=== PATIENT | male | born 1945 | race Caucasian/White ===

== ENCOUNTER 2018-08-07 16:06 | Emergency (ER) | payer OTHER ==
[2018-08-07] MEDS ORDERED: SODIUM CHLORIDE 1,000 ML IV SCH (16:15)
[2018-08-07 16:29] VITALS: BMI 24.8
--- NOTE | 2018-08-07 16:35 | PDOC ---
Attending Attestation - HPI HPI: 08/07/18 18:03 The patient is a 72 year old male, with a significant past medical history of asthma, hypertension, carotid stents and pacemaker placement, who presents to the emergency department via EMS for evaluation. The patients , who is at the bedside, reports that she left for work at approximately 7:45 AM and notes that the patient was well and at his baseline. She returned home from work at approximately 15:30 PM, heard the television on and found the patient sitting in a chair, unable to respond to her. She initiated 911 and the patient was brought to the emergency department for evaluation. Code reyes was initiated upon presentation to the emergency department. - Physicial Exam PE: 08/07/18 17:27 GENERAL: The patient is arousable. HEAD: Normal with no signs of trauma. EYES: PERRLA, EOMI, sclera anicteric, conjunctiva clear. ENT: Ears normal, nares patent, oropharynx clear without exudates. Moist mucous membranes. NECK: Normal range of motion, supple without lymphadenopathy, JVD, or masses. LUNGS: Breath sounds equal, clear to auscultation bilaterally. No wheezes, no crackles. HEART: Regular rate and rhythm, normal S1 and S2 without murmur, rub or gallop. ABDOMEN: Soft, nontender, normoactive bowel sounds. No guarding, no rebound. No masses palpable. EXTREMITIES: No edema. No clubbing or cyanosis. No erythema or tenderness. NEUROLOGICAL: See NIHSS for complete examination. Forced eye deviation to the left. No movement of the right upper or lower extremity. Sensation intact of the right upper extremity. Normal strength of the left upper and lower extremity. MUSCULOSKELETAL: Back nontender to palpation. No CVA tenderness. SKIN: Warm, dry, normal turgor, no rashes or lesions noted. Documentation prepared by Mary Corley, acting as medical/surgery registered nurse for Jocelyne Cedeno MD. <Mary Moss - Last Filed: 08/07/18 18:03> - Resident Resident Name: Angel Ferguson - ED Attending Attestation I have performed the following: I have examined & evaluated the patient, The case was reviewed & discussed with the resident, I agree w/resident's findings & plan, Exceptions are as noted - Critical Care Time Total Critical Care Time: 90 Critical Care Statement: The care of this patient involved high complexity decision making to prevent further life threatening deterioration of the patient 's condition and/or to evaluate & treat vital organ system(s) failure or risk of failure. - Medical Decision Making 08/07/18 16:45 EKG -Paced at 79 bpm 08/07/18 17:17 Laboratory Tests 08/07/18 08/07/18 08/07/18 16:30 16:30 16:30 WBC 9.0 Hgb 15.9 Hct 46.0 Plt Count 155 INR 1.03 BUN 18 Creatinine 0.9 Creatine Kinase [address] - no hemorrhage seen CTA - ICA Thrombus [facility] contacted Will transfer LIZA <Jocelyne Cedeno - Last Filed: 08/08/18 11:50> *DC/Admit/Observation/Transfer <Mary Moss - Last Filed: 08/07/18 18:03> <Jocelyne Cedeno - Last Filed: 08/08/18 11:50> Diagnosis at time of Disposition: Cerebrovascular accident (CVA) Qualifiers: CVA mechanism: occlusion Precerebral and cerebral artery: carotid artery Laterality of affected vessel: left Qualified Code(s): I63.232 - Cerebral infarction due to unspecified occlusion or stenosis of left carotid arteries - Discharge Dispostion Disposition: TRANSFER ACUTE CARE/OTHER HOSP Condition at time of disposition: Critical - Referrals Referrals: Zeyad Rios MD [Primary Care Provider] - - Patient Instructions - Post Discharge Activity NIH Stroke Scale - Last Known Well Date/Time & Onset Date Last Known Well: 08/07/18 Time Last Known Well: 07:35 - Initial Evaluation Level of consciousness: Not alert, but arousable with minimal stimulation Ask patient the month and their age: Both incorrect Ask patient to open & close eyes; make fist and let go: Both incorrect Best gaze (horizontal eye movement): Forced deviation Visual field testing: Partial hemianopia Facial paresis (Show teeth/raise eyebrows/close eyes tight): Minor paralysis ( flattened nasolabial fold, asymmetry on smiling) Motor Function: Left Arm: Normal Motor Function: Right Arm: No movement Motor Function: Left Leg: Normal (extends leg 30 degrees for 5 seconds without drift) Motor Function: Right Leg: No movement Limb Ataxia: Present in two limbs Sensory(Use pinprick test arms,legs,trunk,face/side to side): Severe to total sensory loss Best language (Describe picture, name items, read sentences): Severe aphasia Dysarthria (read several words): Near unintelligible or unable to speak Extinction and Inattention: Profound erica-inattention or extinction to more than one modality - Total Score NIH Stroke Scale Score: 27 <Jocelyne Cedeno - Last Filed: 08/08/18 11:50> tPA Exclusion checklist 3-4.5h - Time Elapsed Date last known well: 08/07/18 Time last known well: 07:35 Elaspsed time: 1 Day(s) and 4 Hour(s) and 14 Minutes - Thrombolytic Therapy Candidate Is patient eligible for thrombolytic therapy: No - Exclusion Criteria 3-4.5 hr SBP greater than 185 or DBP greater than 110mmHg despite tx: No Recent IC/spinal surgery,head trauma or stroke<3mos.: No Hx IC hemorrhage, IC neoplasm, AV malformation or aneurysm: No Active internal bleeding: No Blding diathesis(low plt ct, inc PTT,INR>1.7 or use of NOAC): No Symptoms suggest subarachnoid hemorrhage: No CT demonstrates multilobar infarct(>1/3 cerebral hemiphere): No Arterial puncture at noncompressible site in previous 7 days: No Blood glucose concentration less than 50mg/dL (2.7mmol/L): No - Relative Exclusion Criteria 3-4.5 hr Life expectancy <1 yr or severe co-morbid illness: No : No Patient/family refused: No Stroke severity too mild: No Recent acute NJ (w/in previous 3 months): No Seizure at onset with postictal residual neuro impairments: No Major surgery or serious trauma w/in previous 14 days: No Recent GI or hemorrhage (w/in previous 21 days): No - Add'l Relative Exclusion 3-4.5 hr Age > 80: No Hx of both diabetes AND prior ischemic stroke: No Taking an oral anticoagulant regardless of INR: No NIHSS >25: Yes - Ineligibility reason(s) Reasons No tPA given: Outside of window - delayed arrival <Jocelyne Cedeno - Last Filed: 08/08/18 11:50>
[2018-08-07 16:43] LABS: BASO % 0.8 % (0-2.0); HEMOGLOBIN 15.9 GM/dL (11.7-16.9); LYMPH % 22.5 % (8-40); MCH 31.7 pg (25.7-33.7); MCHC 34.5 g/dl (32.0-35.9); MEAN PLT VOLUME 11.7 fl (7.5-11.1); MONO % 8.1 % (3.8-10.2); NEUT % 67.6 % (42.8-82.8); PLATELET COUNT 155 K/MM3 (134-434); RDW 14.3 % (11.9-15.9)
[2018-08-07 16:55] LABS: INR 1.03 (0.83-1.09); PROTHROMBIN TIME (PATIENT) 12.2 SEC (9.7-13.0)
[2018-08-07 17:14] LABS: ALBUMIN 3.7 g/dl (3.4-5.0); ALK PHOS 84 U/L (45-117); ANION GAP 8 MMOL/L (8-16); BILIRUBIN,TOTAL 0.7 mg/dL (0.2-1); BLOOD UREA NITROGEN 18 mg/dL (7-18); CALCIUM 8.6 mg/dL (8.5-10.1); CHLORIDE 105 mmol/L (98-107); CHOLESTEROL 257 mg/dL (50-200); CO2 23 mmol/L (21-32); CREATININE 0.9 mg/dL (0.55-1.3); GLUCOSE,RANDOM 115 mg/dL (74-106); HDL CHOLESTEROL 57 mg/dL (40-60); POTASSIUM 3.7 mmol/L (3.5-5.1); SGOT/AST 19 U/L (15-37); SGPT/ALT 20 U/L (13-61); SODIUM 137 mmol/L (136-145); TOT PROT 6.8 g/dl (6.4-8.2); TRIGLYCERIDES 164 mg/dL (0-150)
--- NOTE | 2018-08-07 17:33 | PDOC ---
History of Present Illness - General Chief Complaint: CVA/TIA Stated Complaint: POSSIBLE STROKE Time Seen by Provider: 08/07/18 16:26 History Source: EMS, Family Exam Limitations: No Limitations - History of Present Illness Initial Comments: 08/07/18 17:34 Patient is a 72M with extensive medical history, including pacemaker placement, carotid stents, HTN who was found down today. Last known well was 7:45am when the left the house. On my initial evaluation, the patient was protecting his airway but was unable to provide any history. Fingerstick was normal. A left eye deviation was noted with right sided erica-neglect and hemiparesis. Code young was activated. Past History - Past Medical History Allergies/Adverse Reactions: Allergies Allergy/AdvReac Type Severity Reaction Status Date / Time Penicillins Allergy Verified 08/07/18 16:26 Home Medications: Ambulatory Orders Clonazepam 0.5 mg PO DAILY PRN 08/07/18 Lisinopril 20 mg PO DAILY 08/07/18 Metoprolol Succinate 25 mg PO BID 08/07/18 Olanzapine 15 mg PO HS 08/07/18 Asthma: Yes Cardiac Disorders: Yes COPD: No - Surgical History Cardiac Surgery: Yes (pacemaker, stents) - Suicide/Smoking/Psychosocial Hx Smoking History: Unknown if ever smoked Review of Systems - Review of Systems Able to Perform ROS?: No (Unable to do 2/2 patient ) *Physical Exam - Vital Signs Last Vital Signs Temp Pulse Resp BP Pulse Ox 70 18 160/98 96 08/07/18 17:07 08/07/18 17:07 08/07/18 17:07 08/07/18 16:26 - Physical Exam Comments: 08/07/18 17:52 GENERAL: Awake, alert, non-verbal, non-responsive HEAD: No signs of trauma, normocephalic, atraumatic EYES: Left eye deviation ENT: Auricles normal inspection, hearing grossly normal, nares patent, oropharynx clear without exudates. Moist mucosa NECK: Normal ROM, supple, no lymphadenopathy, JVD, or masses LUNGS: No distress, speaks full sentences, clear to auscultation bilaterally HEART: Regular rate and rhythm, normal S1 and S2, no murmurs, rubs or gallops, peripheral pulses normal and equal bilaterally. ABDOMEN: Soft, nontender, normoactive bowel sounds. No guarding, no rebound. No masses EXTREMITIES: Normal inspection, Normal range of motion, no edema. No clubbing or cyanosis. NEUROLOGICAL: Left sided facial droop, aphasic, R sided hemiparesis and neglect SKIN: Warm, Dry, normal turgor, no rashes or lesions noted. NIH Stroke Scale - Last Known Well Date/Time & Onset Date Last Known Well: 08/07/18 Time Last Known Well: 07:45 - Initial Evaluation Level of consciousness: Alert Ask patient the month and their age: Both incorrect Ask patient to open & close eyes; make fist and let go: Both incorrect Best gaze (horizontal eye movement): Forced deviation Visual field testing: Complete hemianopia Facial paresis (Show teeth/raise eyebrows/close eyes tight): Partial paralysis ( total or near paralysis of lower face) Motor Function: Left Arm: Drift Motor Function: Right Arm: No movement Motor Function: Left Leg: Drift Motor Function: Right Leg: No movement Limb Ataxia: Present in two limbs Sensory(Use pinprick test arms,legs,trunk,face/side to side): Severe to total sensory loss Best language (Describe picture, name items, read sentences): Mute Dysarthria (read several words): Near unintelligible or unable to speak Extinction and Inattention: Profound erica-inattention or extinction to more than one modality - Total Score NIH Stroke Scale Score: 31 Moderate Sedation - Procedure Monitoring Vital Signs: Procedure Monitoring Vital Signs Temperature Pulse Rate 70 08/07/18 17:07 Respiratory Rate 18 08/07/18 17:07 Blood Pressure 160/98 08/07/18 17:07 O2 Sat by Pulse Oximetry (%) 96 08/07/18 16:26 Critical Care Time/[facility] Note - Medical Decision Making Note: 08/07/18 18:03 Patient is 72M here today with likely acute stroke. Last known well 7:45 am as left the home. Patient has signs of massive L sided MCA stroke. Fingerstick normal as per EMS. Code young activated. Head CT shows no acute bleed. Labs drawn, patient sent for CTA without waiting for Cr due to high clinical suspicion. EKG shows atrial sensed paced rhythm with rate of 79. Sgarbossa negative. Left axis. LBB pattern. CBC, CMP unremarkable. CTA positive for L internal carotid occlusion. [facility] neuro contacted for transfer. Accepted by Dr Latoya for possible thrombectomy. Patient's airway stable for transport. Code Red transfer via [facility]. Signout also completed to [facility] attending physician. *DC/Admit/Observation/Transfer Diagnosis at time of Disposition: Cerebrovascular accident (CVA) - Discharge Dispostion Disposition: TRANSFER ACUTE CARE/OTHER HOSP Condition at time of disposition: Critical - Referrals Referrals: Zeyad Rios MD [Primary Care Provider] - - Patient Instructions - Post Discharge Activity - Transfer to Acute Care Facility Receiving Facility: [facility] Accepting Physician:: Latoya
[2018-08-07 18:12] VITALS: BP 148/99; PULSE 77
--- NOTE | 2018-08-08 11:27 | EKG ---
Test Reason : Blood Pressure : / mmHG Vent. Rate : 079 BPM Atrial Rate : 079 BPM P-R Int : 188 ms QRS Dur : 164 ms QT Int : 486 ms P-R-T Axes : 055 -67 090 degrees QTc Int : 557 ms Atrial-sensed ventricular-paced rhythm ABNORMAL ECG NO PREVIOUS ECGS AVAILABLE Confirmed by EDWIN GOMEZ, SANJIV ([id number]) on 08/08/2018 11:26:47 AM Referred By: Confirmed By:SANJIV PINEDA MD
== END 2018-08-07 18:12 | disposition short-term general hospital (02) ==
LOC: JER 16:06
DX: I63.232 Cerebral infarction due to unspecified occlusion or stenosis of left carotid arteries (principal); I25.10 Atherosclerotic heart disease of native coronary artery without angina pectoris; I10 Essential (primary) hypertension; Z95.5 Presence of coronary angioplasty implant and graft; Z95.0 Presence of cardiac pacemaker; J45.909 Unspecified asthma, uncomplicated; Z95.828 Presence of other vascular implants and grafts
CPT/HCPCS: 36415; 70450-TC; 70496-TC; 71045-TC-FY; 80053; 82465; 82550; 82553; 83718; 83721; 84478; 84484; 85025; 85610; 86850; 86900; 86901; 93005; 93010; 99285-25

== ENCOUNTER 2020-05-02 03:46 | Inpatient (IN) | payer OTHER ==
[2020-05-02] MEDS ORDERED: methylPREDNISolone NA SUCC 125 MG/2 ML VIAL ONE ×2 (03:51→04:43)
[2020-05-02] MEDS ORDERED: MAGNESIUM SULFATE IN WATER 2 GM/50 ML IVPB IVPB ONE (03:51)
[2020-05-02] MEDS ORDERED: methylPREDNISolone NA SUCC 125 MG/2 ML VIAL IVPB ONE ×2 (03:53→04:14)
[2020-05-02] MEDS ORDERED: MAGNESIUM SULF 50% (8.12 MEQ/2 ML-1 GM VIAL) IVPB ONE (03:53)
[2020-05-02] MEDS ORDERED: AZITHROMYCIN 250 MG TABLET PO ONE (04:07)
[2020-05-02] MEDS ORDERED: CEFTRIAXONE 1,000 MG in DEXTROSE 5%-WATER - 50 ML IVPB ONE (04:07)
[2020-05-02] MEDS ORDERED: cefTRIAXone SODIUM 1 GM VIAL ONE (04:13)
[2020-05-02] MEDS ORDERED: DEXAMETHASONE SOD PHOSPHATE 10 MG/1 ML VIAL IVPUSH ONE (04:13)
[2020-05-02] MEDS ORDERED: CEFTRIAXONE 1 GM/50 ML BAG ONE (04:14)
[2020-05-02 04:18] VITALS: BMI 32.3
[2020-05-02 04:19] LABS: ARTERIAL BLD GAS O2 SATURATION 97.2 mmHg (95-98); ARTERIAL BLOOD GAS BASE EXCESS -8.1 mmol/L (-2-2); ARTERIAL BLOOD GAS PO2 109.6 mmHg (80-100); ARTERIAL BLOOD GAS pH 7.236 (7.350-7.450)
[2020-05-02 04:27] LABS: VENT RATE N
[2020-05-02 04:30] LABS: BASO % 0.1 % (0-2.0); EOS % 0.1 % (0-4.5); HEMATOCRIT 46.1 % (35.4-49); HEMOGLOBIN 15.2 GM/dL (11.7-16.9); LYMPH % 5.5 % (8-40); MCH 31.6 pg (25.7-33.7); MCHC 33.1 g/dl (32.0-35.9); MEAN CELL VOLUME 95.5 fl (80-96); MEAN PLT VOLUME 12.4 fl (7.5-11.1); MONO % 7.2 % (3.8-10.2); NEUT % 87.1 % (42.8-82.8); RBC 4.82 M/mm3 (4.00-5.60); RDW 13.9 % (11.9-15.9)
[2020-05-02] MEDS ORDERED: AZITHROMYCIN IVPB 500 MG in DEXTROSE 5%-WATER - 250 ML IVPB ONE (04:31)
--- NOTE | 2020-05-02 04:39 | PDOC ---
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 s/p CVA per family in ED, has been coughing with mucus last few days no fever or sick contacts covid-19 negative last week today patient sleeping in bed, had acute onset SOB with vomiting and diarrhea appeared blue in the fingers and pale EMS called per EMS, satting 70% on RA with wheezing up to 93% on NRB given Duonebs in ED satting 97% on NRB patient unable to give more PMH due to clinical condition allergy to PCN is "black eyes" Past History - Medical History Allergies/Adverse Reactions: Allergies Allergy/AdvReac Type Severity Reaction Status Date / Time Penicillins Allergy Verified 08/07/18 16:26 Home Medications: Ambulatory Orders Lisinopril 15 mg PO DAILY 08/07/18 Metoprolol Succinate 25 mg PO DAILY 08/07/18 Olanzapine 5 mg PO HS 08/07/18 Aspirin [ASA -] 81 mg PO DAILY 05/02/20 Atorvastatin Ca [Lipitor] 80 mg PO HS 05/02/20 Tamsulosin HCl 0.4 mg PO HS 05/02/20 Asthma: Yes Cardiac Disorders: Yes COPD: No - Surgical History Cardiac Surgery: Yes (pacemaker, stents) - Psycho-Social/Smoking History Smoking History: Unknown if ever smoked Review of Systems - Review of Systems Able to Perform ROS?: No (SOB/aphasia) *Physical Exam - Vital Signs Last Vital Signs Temp Pulse Resp BP Pulse Ox 98 F 85 33 H 111/71 96 05/02/20 04:09 05/02/20 04:09 05/02/20 04:09 05/02/20 04:09 05/02/20 04:09 - Physical Exam General Appearance: Yes: Nourished, Appropriately Dressed, Mild Distress HEENT: positive: EOMI, SHAMAR, Normal Voice, Symmetrical, Pharynx Normal, Hearing Grossly Normal. negative: Scleral Icterus (R), Scleral Icterus (L), Pharyngeal Erythema, Tonsillar Exudate Neck: positive: Normal Thyroid. negative: Tender, Rigid, Lymphadenopathy (R), Lymphadenopathy (L), Tender lateral, Tender midline Respiratory/Chest: positive: Labored Respiration, Rapid RR, Crackles (bases R>L). negative: Chest Tender, Lungs Clear, Normal Breath Sounds, Respiratory Distress, Accessory Muscle Use, Decreased Breath Sounds, Rales, Rhonchi, S tridor, Wheezing Cardiovascular: positive: Regular Rhythm, Tachycardia. negative: Murmur Gastrointestinal/Abdominal: positive: Normal Bowel Sounds, Flat, Soft. negative: Tender, Organomegaly, Pulsatile Mass, Protuberent, Distended, Guarding, Rebound Musculoskeletal: positive: Normal Inspection. negative: CVA Tenderness, CVA Tenderness (L), Vertebral Tenderness Extremity: positive: Normal Capillary Refill, Normal Inspection, Normal Range of Motion, Pelvis Stable. negative: Tender, Coldness, Cyanosis, Pedal Edema, Swelling, Calf Tenderness, Erythema Integumentary: positive: Normal Color, Dry, Warm Neurologic: positive: Alert, Normal Response, Other (moving all extremities spontaneously) ED Treatment Course - LABORATORY CBC & Chemistry Diagram: 05/03/20 06:10 05/03/20 06:10 - ADDITIONAL ORDERS Additional order review: Laboratory Results 05/02/20 04:13 Anticoagulation Therapy No Result Required. Puncture Site Right femoral Patient Temperature No Result Required. ABG pH 7.236 L ABG pCO2 46.60 H ABG pO2 109.6 H ABG HCO3 19.3 L ABG O2 Sat (Measured) 97.2 ABG O2 Content No Result Required. ABG Base Excess -8.1 L Nishant Test Not applicable Patient On Oxygen Yes O2 Delivery Device Nrm Oxygen Flow Rate 15l Vent Mode No Result Required. Vent Rate N Mechanical Rate No Result Required. PEEP No Result Required. Pressure Support Vent No Result Required. 05/02/20 04:09 RBC 4.82 MCV 95.5 MCHC 33.1 RDW 13.9 MPV 12.4 H Neutrophils % 87.1 H D Lymphocytes % 5.5 L D Monocytes % 7.2 Eosinophils % 0.1 D Basophils % 0.1 - RADIOLOGY Radiology Studies Ordered: Category Date Time Status CHEST X-RAY PORTABLE* [RAD] Stat Radiology 05/02/20 03:55 Taken - Medications Given in the ED: ED Medications Discontinued Medications Generic Name Dose Route Start Last Admin Trade Name Judith PRN Reason Stop Dose Admin Ceftriaxone Sodium 1,000 mg/ 50 mls @ 100 mls/hr 05/02/20 04:07 05/02/20 04:28 Dextrose IVPB 05/02/20 04:36 100 mls/hr ONCE ONE Administration Magnesium Sulfate 2 gm 05/02/20 03:53 05/02/20 04:09 Magnesium Sulfate IVPB 05/02/20 03:54 2 gm ONCE ONE Administration Methylprednisolone Sodium Succinate 125 mg 05/02/20 03:53 05/02/20 04:09 Solu-Medrol - IVPB 05/02/20 03:54 125 mg ONCE ONE Administration Medical Decision Making - Medical Decision Making 05/02/20 05:32 Patient presents with respiratory failure likely due to PNA vs. asthma vs. covid-19 vs. CHF given crackles. Saturation up to 97% on NRB, BP normotensive, patient alert. Given history CVA, possible aspiration PNA vs. CAP. Attempted to discuss Code Status with daughter and in waiting room, including DNR/DNI in detail, but they needed more time to think about decision. Sepsis order set obtained with BNP, ECG, CXR, Romo placed for I/O if diuresis needed. CXR shows pulmonary edema without localized infiltrate. ECG NSR with LBBB HR 80 QTc 544, consistent with prior. Labs notable for: - Na 135 - Cr 2.6, UDAY - LA 4.0, concerned for fluid overload, not giving IVF - trop 2.13, ECG no new TORITO, considering NSTEMI - BNP 7220, consider new onset HF vs. STEMI-related failure - ABG pH 7.236 / CO2 46.6 / O2 109.6, lower suspicion of retention-related pathology Starting on empiric Rocephin/azithromycin for CAP management. Flagyl for possible aspiration PNA. Given Solu-Medrol and Mag for asthma, already Duo-nebs in ER. ASA rectal for trop elevation Holding off on IVF out of concern for CHF given BNP and CXR Will admit to TELE for likely PNA vs. COPD vs. CHF and hypoxic respiratory failure. 05/02/20 06:09 Worsening WOB, placed on Bipap and breathing improved with good sat >97% on 07/24/16/50% 05/02/20 06:55 Desaturation on 50% FiO2, increased to 70% and back up to 96%. WOB stable. Spoke to night team regarding admission, accepted under [facility], will be evaluated by day admitting team. Signed out to day ER team. Discharge - Discharge Information Problems reviewed: Yes Clinical Impression/Diagnosis: UDAY (acute kidney injury), Elevated troponin I level Respiratory failure Qualifiers: Chronicity: acute Respiratory failure complication: hypoxia Qualified Code(s): J96.01 - Acute respiratory failure with hypoxia PNA (pneumonia) Qualifiers: Pneumonia type: due to unspecified organism Laterality: bilateral Lung location: unspecified part of lung Qualified Code(s): J18.9 - Pneumonia, unspecified organism Condition: Improved - Admission Yes - Follow up/Referral - Patient Discharge Instructions - Post Discharge Activity
[2020-05-02 04:40] LABS: INR 0.99 (0.83-1.09); PROTHROMBIN TIME (PATIENT) 11.7 SEC (9.7-13.0)
[2020-05-02 04:42] LABS: ACTIVATED PTT 28.2 SECONDS (25.2-36.5)
[2020-05-02] MEDS ORDERED: AZITHROMYCIN IVPB 500 MG/250 ML BAG IVPB ONE (04:43)
[2020-05-02 04:51] LABS: ALBUMIN 3.8 g/dl (3.4-5.0); BILIRUBIN,TOTAL 0.7 mg/dL (0.2-1); CALCIUM 9.5 mg/dL (8.5-10.1); CREATININE 2.6 mg/dL (0.55-1.3); N-TERMINAL BNP 7220.3 pg/ml (5-125); POTASSIUM 4.7 mmol/L (3.5-5.1); TOT PROT 7.4 g/dl (6.4-8.2)
[2020-05-02 05:08] LABS: PLATELET COUNT 141 K/MM3 (134-434)
[2020-05-02 05:26] LABS: URINE APPEARANCE CLEAR; URINE BILIRUBIN NEGATIVE (NEGATIVE); URINE COLOR YELLOW; URINE GLUCOSE (UA) NEGATIVE (NEGATIVE); URINE KETONE NEGATIVE (NEGATIVE); URINE LEUK ESTERASE NEGATIVE (NEGATIVE); URINE NITRITE NEGATIVE (NEGATIVE); URINE PROTEIN NEGATIVE (NEGATIVE); URINE UROBILINOGEN 0.2 mg/dL (0.2-1.0)
[2020-05-02] MEDS ORDERED: ASPIRIN 300 MG SUPP.RECT PR ONE (05:40)
[2020-05-02] MEDS ORDERED: ASPIRIN 300 MG SUPP.RECT RC ONE (05:53)
--- NOTE | 2020-05-02 06:07 | PDOC ---
Attending Attestation - Resident Resident Name: Sascha Lucero - ED Attending Attestation I have performed the following: I have examined & evaluated the patient, The case was reviewed & discussed with the resident, I agree w/resident's findings & plan - HPI HPI: 05/02/20 06:04 Pt comes with SOB; rectal temp is 99.8F Pt has gurgly breath sounds He has CAD and pacemaker Pt appears dehydrated and thin obese abdomen - Physicial Exam PE: 05/02/20 06:05 Afebrile pale HEENT normal Heart S1 S2 RRR lungs s coarse BS bilat abd obese no ext swelling Pt is too weak to follow commands - Medical Decision Making 05/02/20 06:05 Pt lad labs and EKG; CXR shows Left sided pneumonia; abx given Pt has elevated troponin and BNP of 7K Pt has elevated lactic acid Pt has bun/creatinine levation UDAY 05/02/20 06:07 We will give the patient asa, but no lsix, as his Cr is elevated Pt will be placed n BiPAP Discharge - Discharge Information Problems reviewed: Yes Clinical Impression/Diagnosis: UDAY (acute kidney injury), Elevated troponin I level Respiratory failure Qualifiers: Chronicity: acute Respiratory failure complication: hypoxia Qualified Code(s): J96.01 - Acute respiratory failure with hypoxia PNA (pneumonia) Qualifiers: Pneumonia type: due to unspecified organism Laterality: bilateral Lung location: unspecified part of lung Qualified Code(s): J18.9 - Pneumonia, unspecified organism Condition: Improved - Follow up/Referral - Patient Discharge Instructions - Post Discharge Activity
[2020-05-02] MEDS ORDERED: LACTATED RINGERS SOLUTION 1000 ML INFUS.BAG IV ONE (07:38)
[2020-05-02 08:24] LABS: ALBUMIN 3.8 g/dl (3.4-5.0); BILIRUBIN,TOTAL 0.5 mg/dL (0.2-1); BLOOD UREA NITROGEN 33.8 mg/dL (7-18); CALCIUM 9.1 mg/dL (8.5-10.1); CREATININE 2.8 mg/dL (0.55-1.3); POTASSIUM 4.5 mmol/L (3.5-5.1); TOT PROT 8.5 g/dl (6.4-8.2)
--- NOTE | 2020-05-02 08:33 | HP ---
CHIEF COMPLAINT: SOB PCP: Dr. 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 This has not happened before. The episode started as several dry coughs that lead to 1x vomiting. The cough has been present for the last 2 days. Shortly after the pt's noted a blue color to the pt's nail beds/fingertips. He has not been around anyone sick, has not traveled, has had no new foods/med/herbs/supplements. He takes his medications regularly. Pt received duonebs and placed on NRB in ambulance 2/2 oxygen saturation in the 70s%. 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), LEFT ear deafness, BPH PAST SURGICAL HISTORY: spinal fusion, pace maker Family history: Denies Social History: Smoking: denies Alcohol: denies Drugs: denies Allergies Penicillins Allergy (Verified 08/07/18 16:26) HOME MEDICATIONS: - ASA 81 mg po QD - Atorvastatin 80 mg PO HS - Lisinopril 15 mg po QD - Metoprolol succinate 25 mg po qd - Olanzepine 5 mg po hs - Tamsulosin 0.4 mg PO HS REVIEW OF SYSTEMS CONSTITUTIONAL: Absent: fever, chills, diaphoresis, generalized weakness, malaise, loss of appetite, weight change HEENT: Absent: rhinorrhea, nasal congestion, throat pain, throat swelling, difficulty swallowing, mouth swelling, ear pain, eye pain, visual changes CARDIOVASCULAR: Absent: chest pain, syncope, palpitations, irregular heart rate, lightheadedness, peripheral edema RESPIRATORY: Absent: cough, shortness of breath, dyspnea with exertion, orthopnea, wheezing, stridor, hemoptysis GASTROINTESTINAL: Absent: abdominal pain, abdominal distension, nausea, vomiting, diarrhea, constipation, melena, hematochezia GENITOURINARY: Absent: dysuria, frequency, urgency, hesitancy, hematuria, flank pain, genital pain MUSCULOSKELETAL: Absent: myalgia, arthralgia, joint swelling, back pain, neck pain SKIN: Absent: rash, itching, pallor HEMATOLOGIC/IMMUNOLOGIC: Absent: easy bleeding, easy bruising, lymphadenopathy, frequent infections ENDOCRINE: Absent: unexplained weight gain, unexplained weight loss, heat intolerance, cold intolerance NEUROLOGIC: Absent: headache, focal weakness or paresthesias, dizziness, unsteady gait, seizure, mental status changes, bladder or bowel incontinence PSYCHIATRIC: Absent: anxiety, depression, suicidal or homicidal ideation, hallucinations. PHYSICAL EXAMINATION Vital Signs - 24 hr 05/02/20 05/02/20 05/02/20 03:55 04:09 04:20 Temperature 99.3 F 98 F Pulse Rate 85 Pulse Rate [ Apical] Respiratory 33 H Rate Blood Pressure 111/71 Blood Pressure [Left Arm] O2 Sat by Pulse 96 98 Oximetry (%) 05/02/20 05/02/20 05/02/20 05:33 05:39 06:00 Temperature Pulse Rate Pulse Rate [ 82 Apical] Respiratory 32 H Rate Blood Pressure Blood Pressure 132/92 [Left Arm] O2 Sat by Pulse 98 98 95 Oximetry (%) 05/02/20 06:45 Temperature Pulse Rate Pulse Rate [ 74 Apical] Respiratory 18 Rate Blood Pressure Blood Pressure 116/82 [Left Arm] O2 Sat by Pulse 97 Oximetry (%) GENERAL: Awake, alert, and fully oriented, in no acute distress. Expressive aphasia. Not able to hear from LEFT ear HEAD: Normal with no signs of trauma. EYES: Pupils equal, round and reactive to light, extraocular movements intact, sclera anicteric, conjunctiva clear. No lid lag. EARS, NOSE, THROAT: Ears normal, nares patent, oropharynx clear without exudates. Moist mucous membranes. NECK: Normal range of motion, supple without lymphadenopathy, JVD, or masses. LUNGS: Breath sounds equal, clear to auscultation bilaterally. No wheezes, and no crackles. No accessory muscle use. HEART: Regular rate and rhythm, normal S1 and S2 without murmur, rub or gallop. ABDOMEN: Soft, nontender, not distended, normoactive bowel sounds, no guarding, no rebound, no masses. No hepatomegaly or splenomegaly. MUSCULOSKELETAL: Normal range of motion at all joints. No bony deformities or tenderness. No CVA tenderness. UPPER EXTREMITIES: 2+ pulses, warm, well-perfused. No cyanosis. No clubbing. No peripheral edema. LOWER EXTREMITIES: 2+ pulses, warm, well-perfused. No calf tenderness. No peripheral edema. NEUROLOGICAL: Cranial nerves II-XII intact. Expressive aphasia. RIGHT sided weakness. PSYCHIATRIC: Cooperative. Good eye contact. Appropriate mood and affect. SKIN: Warm, dry, normal turgor, no rashes or lesions noted, normal capillary refill. Laboratory Results - last 24 hr 05/02/20 05/02/20 05/02/20 03:04 03:55 04:09 WBC 10.0 RBC 4.82 Hgb 15.2 Hct 46.1 MCV 95.5 MCH 31.6 MCHC 33.1 RDW 13.9 Plt Count 141 MPV 12.4 H Absolute Neuts (auto) 8.7 H Neutrophils % 87.1 H D Lymphocytes % 5.5 L D Monocytes % 7.2 Eosinophils % 0.1 D Basophils % 0.1 Nucleated RBC % 0 PT with INR 11.70 INR 0.99 PTT (Actin FS) 28.2 Anticoagulation Therapy Puncture Site Patient Temperature ABG pH ABG pCO2 ABG pO2 ABG HCO3 ABG O2 Sat (Measured) ABG O2 Content ABG Base Excess Nishant Test Patient On Oxygen O2 Delivery Device Oxygen Flow Rate Vent Mode Vent Rate Mechanical Rate PEEP Pressure Support Vent Sodium Potassium Chloride Carbon Dioxide Anion Gap BUN Creatinine Est GFR (CKD-EPI)AfAm Est GFR (CKD-EPI)NonAf Random Glucose Lactic Acid Calcium Total Bilirubin AST ALT Alkaline Phosphatase Troponin I B-Natriuretic Peptide Total Protein Albumin Urine Color Yellow Urine Appearance Clear Urine pH 5.0 Ur Specific [place] 1.018 Urine Protein Negative Urine Glucose (UA) Negative Urine Ketones Negative Urine Blood Negative Urine Nitrite Negative Urine Bilirubin Negative Urine Urobilinogen 0.2 Ur Leukocyte Esterase Negative 05/02/20 05/02/20 05/02/20 04:09 04:09 04:13 WBC RBC Hgb Hct MCV MCH MCHC RDW Plt Count MPV Absolute Neuts (auto) Neutrophils % Lymphocytes % Monocytes % Eosinophils % Basophils % Nucleated RBC % PT with INR INR PTT (Actin FS) Anticoagulation Therapy No Result Required. Puncture Site Right femoral Patient Temperature No Result Required. ABG pH 7.236 L ABG pCO2 46.60 H ABG pO2 109.6 H ABG HCO3 19.3 L ABG O2 Sat (Measured) 97.2 ABG O2 Content No Result Required. ABG Base Excess -8.1 L Nishant Test Not applicable Patient On Oxygen Yes O2 Delivery Device Nrm Oxygen Flow Rate 15l Vent Mode No Result Required. Vent Rate N Mechanical Rate No Result Required. PEEP No Result Required. Pressure Support Vent No Result Required. Sodium 135 L Potassium 4.7 Chloride 101 Carbon Dioxide 22 Anion Gap 12 BUN 35.0 H Creatinine 2.6 H Est GFR (CKD-EPI)AfAm 27.14 Est GFR (CKD-EPI)NonAf 23.42 Random Glucose 177 H Lactic Acid 4.0 H* Calcium 9.5 Total Bilirubin 0.7 AST 30 ALT 30 Alkaline Phosphatase 112 Troponin I 2.13 H* B-Natriuretic Peptide 7220.3 H Total Protein 7.4 Albumin 3.8 Urine Color Urine Appearance Urine pH Ur Specific [place] Urine Protein Urine Glucose (UA) Urine Ketones Urine Blood Urine Nitrite Urine Bilirubin Urine Urobilinogen Ur Leukocyte Esterase 05/02/20 07:20 WBC RBC Hgb Hct MCV MCH MCHC RDW Plt Count MPV Absolute Neuts (auto) Neutrophils % Lymphocytes % Monocytes % Eosinophils % Basophils % Nucleated RBC % PT with INR INR PTT (Actin FS) Anticoagulation Therapy Puncture Site Patient Temperature ABG pH ABG pCO2 ABG pO2 ABG HCO3 ABG O2 Sat (Measured) ABG O2 Content ABG Base Excess Nishant Test Patient On Oxygen O2 Delivery Device Oxygen Flow Rate Vent Mode Vent Rate Mechanical Rate PEEP Pressure Support Vent Sodium 133 L Potassium 4.5 Chloride 100 Carbon Dioxide 21 Anion Gap 12 BUN 33.8 H Creatinine 2.8 H Est GFR (CKD-EPI)AfAm 24.81 Est GFR (CKD-EPI)NonAf 21.41 Random Glucose 196 H Lactic Acid Calcium 9.1 Total Bilirubin 0.5 AST 33 ALT 36 Alkaline Phosphatase 113 Troponin I 4.21 H* B-Natriuretic Peptide Total Protein 8.5 H Albumin 3.8 Urine Color Urine Appearance Urine pH Ur Specific [place] Urine Protein Urine Glucose (UA) Urine Ketones Urine Blood Urine Nitrite Urine Bilirubin Urine Urobilinogen Ur Leukocyte Esterase ASSESSMENT/PLAN: 74 y/o male PMH HTN, HLD, carotid stents, pacemaker placement, 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 # Acute respiratory failure possibly 2/2 PNA - aspiration vs infectious - Cont. BiPap given ABG demonstrating respiratory acidosis - PCN allergy so instead: clindamycin 600 mg IV q8h - Cannot r/o new stroke, would consider head CT - No fever, no white count - Lactic acidosis # UDAY - Cr 2.8 - Consult nephrology # Troponemia - EKG with paced rhythm and no new changes - Increase from 2.13 to 4.21 - Consult cardiology - Poss 2/2 demand ischemia and supported by UDAY. Provide bolus. - Cont. to monitor troponins - Elevated BNP 7,220 # Azotemia - BUN 33.8 # HTN - Lisinopril 15 mg po QD - Metoprolol succinate 25 mg po qd # HLD - Cont. lipitor 80 mg hs # BPH - Tamsulosin 0.4 mg PO HS # FEN - Judicious administration of fluid boluses given clinical presentation. Pt with no current evidence of fluid overload, now s/p 1 L NS - Cont. to monitor and replete as appropriate - NPO till speech/swallow assessment # DVT ppx - Heparin # Disposition - Admit to telemetry Mohan Pedro MD Family Medical History Family History: As Documented Visit type - Medication Review Med list reviewed for High Risk Meds patients 65 and older: Yes - Emergency Visit Emergency Visit: Yes ED Registration Date: 05/02/20 Care time: The patient presented to the Emergency Department on the above date and was hospitalized for further evaluation of their emergent condition. - New Patient This patient is new to me today: Yes Date on this admission: 05/11/20 - Critical Care Critical Care patient: No ATTENDING PHYSICIAN STATEMENT I saw and evaluated the patient. I reviewed the resident's note and discussed the case with the resident. I agree with the resident's findings and plan as documented. SUBJECTIVE: OBJECTIVE: ASSESSMENT AND PLAN:
[2020-05-02 09:14] LABS: PLATELET ESTIMATE DECREASED
[2020-05-02] MEDS ORDERED: SODIUM CHLORIDE 500 ML IV STA ×2 (09:23→14:04)
--- NOTE | 2020-05-02 10:30 | EKG ---
Test Reason : Blood Pressure : / mmHG Vent. Rate : 080 BPM Atrial Rate : 080 BPM P-R Int : 186 ms QRS Dur : 164 ms QT Int : 472 ms P-R-T Axes : 053 -48 085 degrees QTc Int : 544 ms ATRIAL SENSED VENTRICULAR PACED RHYTHM WHEN COMPARED WITH ECG OF 07-AUG-2018 16:30, NO SIGNIFICANT CHANGE WAS FOUND Confirmed by AVA DOLAN MD ([id number]) on 05/02/2020 10:30:22 AM Referred By: Confirmed By:AVA DOLAN MD
--- NOTE | 2020-05-02 10:42 | CONSULT ---
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 This has not happened before. The episode started as several dry coughs that lead to 1x vomiting. The cough has been present for the last 2 days. Shortly after the pt's noted a blue color to the pt's nail beds/fingertips. He has not been around anyone sick, has not traveled, has had no new foods/med/herbs/supplements. He takes his medications regularly. Pt received duonebs and placed on NRB in ambulance 2/2 oxygen saturation in the 70s%. ER course was notable for: (1) ABG with respiratory acidosis (2) Troponin of 2 then 4 with no new EKG changes (3) CXR with questionable LEFT perihilar infiltrate (4) No fever, no white count Selected Entries 05/02/20 05/02/20 05/02/20 03:55 04:09 04:20 Temperature 99.3 F 98 F Pulse Rate 85 Pulse Rate [ Apical] Blood Pressure 111/71 Blood Pressure [Left Arm] O2 Sat by Pulse 96 98 Oximetry (%) Oxygen Delivery Non-Rebreather Method Mask Fraction of Inspired Oxygen (FIO2) 05/02/20 05/02/20 05/02/20 05:33 05:39 06:00 Temperature Pulse Rate Pulse Rate [ 82 Apical] Blood Pressure Blood Pressure 132/92 [Left Arm] O2 Sat by Pulse 98 98 95 Oximetry (%) Oxygen Delivery Non-Rebreather Non-Rebreather Method Mask Mask Fraction of 50 Inspired Oxygen (FIO2) 05/02/20 06:45 Temperature Pulse Rate Pulse Rate [ 74 Apical] Blood Pressure Blood Pressure 116/82 [Left Arm] O2 Sat by Pulse 97 Oximetry (%) Oxygen Delivery Bi-pap Method Fraction of Inspired Oxygen (FIO2) Laboratory Tests 05/02/20 05/02/20 05/02/20 04:09 04:09 04:09 WBC 10.0 Lactic Acid 4.0 H* Troponin I 2.13 H* Laboratory Tests 05/02/20 06:35 COVID-19 ([facility]) Pending - Smoking History Smoking history: Unknown if ever smoked History - Admission Reason For Visit: RESPIRATORY FAILURE,PNEUMONIA Recommendations - Speech Evaluation, Impression/Plan Impression: pt is in ed,on bipap.npo. to follow.
--- NOTE | 2020-05-02 13:12 | CON.CARD ---
Consult Consult Specialty:: Cardiology Referred by:: Hospitalist Medicine Reason for Consultation:: Elevated troponins - History of Present Illness Chief Complaint: Dyspnea History of Present Illness: CHIEF COMPLAINT: SOB PCP: Dr. 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 The episode started as several dry coughs that lead to 1x vomiting. Shortly after the pt's noted a blue color to the pt's nail beds/fingertips. Pt received duonebs and placed on NRB in ambulance 2/2 oxygen saturation in the 70s%. ER course was notable for: (1) ABG with respiratory acidosis (2) Troponin of 2 then 4 with no new EKG changes (3) CXR with questionable LEFT perihilar infiltrate (4) No fever, no white count - History Source History Provided By: Medical Record Limitations to Obtaining History: Clinical Condition - Smoking History Smoking history: Unknown if ever smoked Home Medications - Allergies Allergies/Adverse Reactions: Allergies Allergy/AdvReac Type Severity Reaction Status Date / Time Penicillins Allergy Verified 08/07/18 16:26 - Home Medications Home Medications: Ambulatory Orders Lisinopril 15 mg PO DAILY 08/07/18 Metoprolol Succinate 25 mg PO DAILY 08/07/18 Olanzapine 5 mg PO HS 08/07/18 Aspirin [ASA -] 81 mg PO DAILY 05/02/20 Atorvastatin Ca [Lipitor] 80 mg PO HS 05/02/20 Tamsulosin HCl 0.4 mg PO HS 05/02/20 Review of Systems - Review of Systems Cardiovascular: reports: Shortness of Breath Gastrointestinal: reports: Vomiting Vital Signs: Vital Signs Temperature 98 F 05/02/20 04:09 Pulse Rate 92 H 05/02/20 10:00 Respiratory Rate 05/02/20 10:00 Blood Pressure 135/90 05/02/20 10:00 O2 Sat by Pulse Oximetry (%) 100 05/02/20 10:00 Constitutional: Yes: No Distress, Calm Respiratory: Yes: On BiPap, Rhonchi Gastrointestinal: Yes: Soft, Hypoactive Bowel Sounds Cardiovascular: Yes: Regular Rate and Rhythm JVD: No Carotid Bruit: No Heart Sounds: Yes: S1, S2 Murmur: Yes: Systolic Murmur, Grade 1 Edema: No - Other Data Labs, Other Data: CBC, BMP 05/02/20 04:09 05/02/20 07:20 INR, PTT INR 0.99 (0.83-1.09) 05/02/20 03:55 Troponin, BNP 05/02/20 05/02/20 05/02/20 04:09 07:20 10:50 Troponin I 2.13 H* 4.21 H* 4.95 H* B-Natriuretic Peptide 7220.3 H Troponin, BNP 05/02/20 05/02/20 05/02/20 04:09 07:20 10:50 Troponin I 2.13 H* 4.21 H* 4.95 H* B-Natriuretic Peptide 7220.3 H A-sensed V-paced @ 80 Imaging - Results Chest X-ray: Report Reviewed (Possible early left perihilar infiltrate) Problem List - Problems (1) Aspiration pneumonia Code(s): J69.0 - PNEUMONITIS DUE TO INHALATION OF FOOD AND VOMIT Qualifiers: Aspiration pneumonia type: due to vomit Laterality: left Lung location: unspecified part of lung Qualified Code(s): J69.0 - Pneumonitis due to inhalation of food and vomit (2) Demand ischemia Code(s): I24.8 - OTHER FORMS OF ACUTE ISCHEMIC HEART DISEASE (3) Hyperlipidemia Code(s): E78.5 - HYPERLIPIDEMIA, UNSPECIFIED Qualifiers: Hyperlipidemia type: pure hypercholesterolemia Qualified Code(s): E78.00 - Pure hypercholesterolemia, unspecified; E78.0 - Pure hypercholesterolemia (4) Hypertension Code(s): I10 - ESSENTIAL (PRIMARY) HYPERTENSION Qualifiers: Hypertension type: essential hypertension Qualified Code(s): I10 - Essential (primary) hypertension (5) Coronary artery disease Code(s): I25.10 - ATHSCL HEART DISEASE OF [place] CORONARY ARTERY W/O ANG PCTRS Qualifiers: Coronary Disease-Associated Artery/Lesion type: [place] artery [place] vs. transplanted heart: [place] heart Associated angina: without angina Qualified Code(s): I25.10 - Atherosclerotic heart disease of [place] coronary artery without angina pectoris (6) UDAY (acute kidney injury) Code(s): N17.9 - ACUTE KIDNEY FAILURE, UNSPECIFIED (7) Elevated troponin I level Code(s): R79.89 - OTHER SPECIFIED ABNORMAL FINDINGS OF BLOOD CHEMISTRY (8) Respiratory failure Code(s): J96.90 - RESPIRATORY FAILURE, UNSP, UNSP W HYPOXIA OR HYPERCAPNIA Qualifiers: Chronicity: acute Respiratory failure complication: hypoxia Qualified Code(s): J96.01 - Acute respiratory failure with hypoxia (9) Cerebrovascular accident (CVA) Code(s): I63.9 - CEREBRAL INFARCTION, UNSPECIFIED Qualifiers: CVA mechanism: occlusion Precerebral and cerebral artery: carotid artery Laterality of affected vessel: left Qualified Code(s): I63.232 - Cerebral infarction due to unspecified occlusion or stenosis of left carotid arteries Assessment/Plan 1. Acute hypoxic respiratory failure suspect aspiration PNA 2. CAD, demand ischemia 3. Carotid stents 4. Pacemaker placement 5. 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 UDAY 7. Hypertension 8. Hyperlipidemia 9. BPH P:1. Trend troponins to document peak 2. Cont. BiPap, BD, O2 as needed, empiric abx course 3. Hold lisinopril, judicious hydration with monitor renal recovery 4. Continue Toprol XL 25 qd, Lipitor 80 qd, ASA 81 qd 5. F/u AXR r/o ileus 6. Thank you for consultative opportunity
--- NOTE | 2020-05-02 14:01 | CON.GI ---
Consult Consult Specialty:: GI Referred by:: Hospitalist Service Reason for Consultation:: ischemic colitis - History of Present Illness Chief Complaint: Patient with BIPAP currently. Poor hisrotian, Limited verbally History of Present Illness: 74M admitted 4am this morning for evaluation of SOB. There was coughing for two days per the H&P along with vomiting today. It was after the vomiting that respiratory distress was noted. History obtained from the chart as the patient currently receiving supplemental O2 from CPAP and seems confused. GI called this afternoon to exclude ischemic colitis. Patient currently denies abdominal pain. No further nausea/vomiting reported. No overt rectal bleeding reported. There was question of abdominal pain on initial admission. EKG revealed paced rhythm. There is gross hematuria noted from ambriz catheter. 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 Cardio/Vascular: Yes: HTN, Other (PVD) - Smoking History Smoking history: Unknown if ever smoked - Social History Usual Living Arrangement: With Spouse ADL: Family Assistance Place of : [facility] History of Recent Travel: No Home Medications - Allergies Allergies/Adverse Reactions: Allergies Allergy/AdvReac Type Severity Reaction Status Date / Time Penicillins Allergy Verified 08/07/18 16:26 - Home Medications Home Medications: Ambulatory Orders Lisinopril 15 mg PO DAILY 08/07/18 Metoprolol Succinate 25 mg PO DAILY 08/07/18 Olanzapine 5 mg PO HS 08/07/18 Aspirin [ASA -] 81 mg PO DAILY 05/02/20 Atorvastatin Ca [Lipitor] 80 mg PO HS 05/02/20 Tamsulosin HCl 0.4 mg PO HS 05/02/20 Review of Systems - Review of Systems Gastrointestinal: reports: Vomiting Physical Exam-GI Vital Signs: Vital Signs Temperature 98 F 05/02/20 04:09 Pulse Rate 92 H 05/02/20 10:00 Respiratory Rate 20 05/02/20 10:00 Blood Pressure 135/90 05/02/20 10:00 O2 Sat by Pulse Oximetry (%) 100 05/02/20 10:00 Constitutional: Yes: Calm Eyes: No: Sclera Icterus Cardiovascular: Yes: Other (Heart sounds obscured by upper airway noise and CPAP machine) Respiratory: Yes: Diminished (at bases bilaterally) Gastrointestinal Inspection: No: Distention ...Auscultate: Yes: Normoactive Bowel Sounds ...Palpate: Yes: Soft. No: Hepatomegaly, Splenomegaly, Tenderness ...Percussion: No: Tympanitic Edema: No (No LE edema) Neurological: Yes: Alert, Confusion (could not tell me where he was) Labs: CBC, BMP 05/02/20 04:09 05/02/20 07:20 INR, PTT INR 0.99 (0.83-1.09) 05/02/20 03:55 Problem List - Problems (1) PNA (pneumonia) Assessment/Plan: Being treated for suspected PNA following vomiting ? if vomiting precipitated by developing PNA Currently no focal findings on abdominal exam that would suggest ongoing ischemic colitis Advise: Continued evaluation per primary team AXR to evaluate for ileus Code(s): J18.9 - PNEUMONIA, UNSPECIFIED ORGANISM Qualifiers: Pneumonia type: due to unspecified organism Laterality: bilateral Lung location: unspecified part of lung Qualified Code(s): J18.9 - Pneumonia, unspecified organism
[2020-05-02] MEDS: HEPARIN NA (PORCINE) 5,000 UNITS/ML 1ML VIAL SQ SCH (14:18)
[2020-05-02] MEDS ORDERED: PANTOPRAZOLE SODIUM 40 MG VIAL ONE (14:43)
[2020-05-02] MEDS ORDERED: CLINDAMYCIN 600MG PREMIX IVPB 600 MG/50 ML BAG IVPB ONE (14:43)
--- NOTE | 2020-05-02 14:49 | CON.ID ---
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 This has not happened before. The episode started as several dry coughs that lead to 1x vomiting. The cough has been present for the last 2 days. Shortly after the pt's noted a blue color to the pt's nail beds/fingertips. He has not been around anyone sick, has not traveled, has had no new foods/med/herbs/supplements. He takes his medications regularly. Pt received duonebs and placed on NRB in ambulance 2/2 oxygen saturation in the 70s%. 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 Cardio/Vascular: Yes: HTN, Other (PVD) - Smoking History Smoking history: Unknown if ever smoked - Social History Usual Living Arrangement: With Spouse ADL: Family Assistance History of Recent Travel: No Home Medications - Allergies Allergies/Adverse Reactions: Allergies Allergy/AdvReac Type Severity Reaction Status Date / Time Penicillins Allergy Verified 08/07/18 16:26 - Home Medications Home Medications: Ambulatory Orders RX: Lisinopril 15 mg PO DAILY 08/07/18 RX: Metoprolol Succinate 25 mg PO DAILY 08/07/18 RX: Olanzapine 5 mg PO HS 08/07/18 Aspirin [ASA -] 81 mg PO DAILY 05/02/20 Atorvastatin Ca [Lipitor] 80 mg PO HS 05/02/20 RX: Tamsulosin HCl 0.4 mg PO HS 05/02/20 Review of Systems Unable to obtain ROS, reason: unable to obtain Physical Exam Vital Signs: Vital Signs Temperature 99.1 F 05/02/20 14:00 Pulse Rate 88 05/02/20 14:00 Respiratory Rate 24 H 05/02/20 14:00 Blood Pressure 146/86 05/02/20 14:00 O2 Sat by Pulse Oximetry (%) 99 05/02/20 14:00 Constitutional: Yes: Moderate Distress Eyes: Yes: Conjunctiva Clear Neck: Yes: Supple, Trachea Midline Cardiovascular: Yes: Regular Rate and Rhythm Respiratory: Yes: On BiPap, Poor Air Entry Gastrointestinal: Yes: Normal Bowel Sounds, Soft Renal/: Yes: Romo Present Musculoskeletal: Yes: WNL Extremities: Yes: WNL Neurological: Yes: Alert Psychiatric: Yes: Alert Labs: CBC, BMP 05/02/20 04:09 05/02/20 07:20 Imaging - Results Chest X-ray: Report Reviewed, Image Reviewed
[2020-05-02] MEDS: PANTOPRAZOLE SODIUM 40 MG VIAL IVPUSH SCH (15:00)
--- NOTE | 2020-05-02 15:56 | EKG ---
Test Reason : Blood Pressure : / mmHG Vent. Rate : 080 BPM Atrial Rate : 080 BPM P-R Int : 210 ms QRS Dur : 144 ms QT Int : 436 ms P-R-T Axes : 078 -20 001 degrees QTc Int : 502 ms ATRIAL SENSED VENTRICULAR PACED RHYTHM WHEN COMPARED WITH ECG OF 02-MAY-2020 05:07, NO SIGNIFICANT CHANGE WAS FOUND Confirmed by AVA DOLAN MD ([id number]) on 05/02/2020 3:56:37 PM Referred By: Confirmed By:AVA DOLAN MD
[2020-05-02] MEDS ORDERED: MEROPENEM 1 GM VIAL (RESTRICTED TO ID) IVPB ONE (16:28)
[2020-05-02] MEDS: MEROPENEM 1 GM in DEXTROSE 5%-WATER 100 ML IVPB SCH (16:30)
--- NOTE | 2020-05-02 16:48 | CONSULT ---
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 The shortness of breath was after an episode of emesis. He has had a cough for the last few days. He is awake and feels that his breathing is better with the bipap. I was called to evaluate him for uday. His is at bedside and did assist with history. He does not have history of kidney disease. Romo catheter was placed in er. He developed hematuria today. He was also found to have elevated cardiac enzymes. 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 Cardio/Vascular: Yes: HTN, Other (PVD) - Smoking History Smoking history: Unknown if ever smoked - Social History Usual Living Arrangement: With Spouse ADL: Family Assistance History of Recent Travel: No Home Medications - Allergies Allergies/Adverse Reactions: Allergies Allergy/AdvReac Type Severity Reaction Status Date / Time Penicillins Allergy Verified 08/07/18 16:26 - Home Medications Home Medications: Ambulatory Orders Lisinopril 15 mg PO DAILY 08/07/18 Metoprolol Succinate 25 mg PO DAILY 08/07/18 Olanzapine 5 mg PO HS 08/07/18 Aspirin [ASA -] 81 mg PO DAILY 05/02/20 Atorvastatin Ca [Lipitor] 80 mg PO HS 05/02/20 Tamsulosin HCl 0.4 mg PO HS 05/02/20 Family Medical History Family History: Denies Review of Systems - Review of Systems Constitutional: reports: Malaise. denies: Chills, Fever Eyes: reports: No Symptoms HENT: reports: No Symptoms Neck: reports: No Symptoms Cardiovascular: reports: Shortness of Breath. denies: Edema Respiratory: reports: Cough, SOB, SOB on Exertion Genitourinary: reports: No Symptoms Musculoskeletal: reports: No Symptoms Integumentary: reports: No Symptoms Neurological: reports: No Symptoms Endocrine: reports: No Symptoms Hematology/Lymphatic: reports: No Symptoms Psychiatric: reports: No Symptoms Physical Exam Vital Signs: Vital Signs Temperature 99.1 F 05/02/20 14:00 Pulse Rate 88 05/02/20 14:00 Respiratory Rate 24 H 05/02/20 14:00 Blood Pressure 146/86 05/02/20 14:00 O2 Sat by Pulse Oximetry (%) 99 05/02/20 14:00 Constitutional: Yes: Calm Eyes: Yes: Conjunctiva Clear HENT: Yes: Atraumatic Cardiovascular: Yes: S1, S2 Respiratory: Yes: On BiPap Gastrointestinal: Yes: Soft Renal/: Yes: Romo Present, Hematuria Musculoskeletal: Yes: Muscle Weakness Edema: No Neurological: Yes: Oriented Psychiatric: Yes: Oriented Labs: CBC, BMP 05/02/20 04:09 05/02/20 07:20 Imaging - Results Chest X-ray: Report Reviewed Problem List - Problems (1) UDAY (acute kidney injury) Code(s): N17.9 - ACUTE KIDNEY FAILURE, UNSPECIFIED (2) Aspiration pneumonia Code(s): J69.0 - PNEUMONITIS DUE TO INHALATION OF FOOD AND VOMIT Qualifiers: Aspiration pneumonia type: due to vomit Laterality: left Lung location: unspecified part of lung Qualified Code(s): J69.0 - Pneumonitis due to inhalation of food and vomit (3) Coronary artery disease Code(s): I25.10 - ATHSCL HEART DISEASE OF [place] CORONARY ARTERY W/O ANG PCTRS Qualifiers: Coronary Disease-Associated Artery/Lesion type: [place] artery [place] vs. transplanted heart: [place] heart Associated angina: without angina Qualified Code(s): I25.10 - Atherosclerotic heart disease of [place] coronary artery without angina pectoris Assessment/Plan Current Medications Generic Name Dose Route Start Last Admin Trade Name Freq PRN Reason Stop Dose Admin Heparin Sodium (Porcine) 5,000 unit 05/02/20 14:00 05/02/20 14:18 Heparin - SQ Not Given TID EDDI Meropenem 1 gm/ Dextrose 100 mls @ 0 mls/hr 05/02/20 15:30 05/02/20 16:30 IVPB 100 mls/hr Q12H EDDI Administration As Directed Pantoprazole Sodium 40 mg 05/02/20 14:15 05/02/20 15:00 Protonix Iv IVPUSH 40 mg DAILY EDDI Administration Impression 1. UDAY 2. resp failure requiring bipap 3. cad with hx of stents 4. elevated ldh 5. hx htn 6. vomiting 7. aspiration PNA 8. bph 9. hld Plan - check renal ultrasound - check ua, lytes and salvage worker to calc fena - renal dose meds - start fluids - monitor pulse ox - monitor volume status - cardio input appreciated - follow troponins - follow cultures - discussed with family
[2020-05-02] MEDS ORDERED: SODIUM CHLORIDE 1,000 ML IV SCH (17:00)
[2020-05-02] MEDS ORDERED: CLINDAMYCIN 600MG PREMIX IVPB 600 MG/50 ML BAG IVPB SCH (18:00)
--- NOTE | 2020-05-02 19:03 | PN ---
Teaching Attending Note Name of Resident: Mohan Pedro ATTENDING PHYSICIAN STATEMENT I saw and evaluated the patient. I reviewed the resident's note and discussed the case with the resident. I agree with the resident's findings and plan as documented. SUBJECTIVE: Patient seen and examined at bedside, admitted for SOB/abdominal pain 2/2 ?PNA/colitis/ACS, now trops elevated/lactic acidosis. On BiPAP. Cardiology/Pulmonary/GI consulted. OBJECTIVE: GA tired appearing, on BiPAP, non-contributory to history HEENT NC/aT, neck supple, JVD present Chest coarse b/l BS, decreased BS R base CVS Sinus tachycardia, no m/r/g Abd distended, decreased BS, mildly TTP to epigastric area Ext no LE edema Vital Signs - 24 hr 05/02/20 05/02/20 05/02/20 03:55 04:09 04:20 Temperature 99.3 F 98 F Pulse Rate 85 Pulse Rate [ Apical] Respiratory 33 H Rate Blood Pressure 111/71 Blood Pressure [Left Arm] O2 Sat by Pulse 96 98 Oximetry (%) 05/02/20 05/02/20 05/02/20 05:33 05:39 06:00 Temperature Pulse Rate Pulse Rate [ 82 Apical] Respiratory 32 H Rate Blood Pressure Blood Pressure 132/92 [Left Arm] O2 Sat by Pulse 98 98 95 Oximetry (%) 05/02/20 05/02/20 05/02/20 06:45 10:00 12:10 Temperature Pulse Rate Pulse Rate [ 74 92 H Apical] Respiratory 18 20 Rate Blood Pressure Blood Pressure 116/82 135/90 [Left Arm] O2 Sat by Pulse 97 100 94 L Oximetry (%) 05/02/20 05/02/20 14:00 17:00 Temperature 99.1 F Pulse Rate Pulse Rate [ 88 88 Apical] Respiratory 24 H 24 H Rate Blood Pressure Blood Pressure 146/86 110/72 [Left Arm] O2 Sat by Pulse 99 100 Oximetry (%) Laboratory Results - last 24 hr 05/02/20 05/02/20 05/02/20 03:04 03:55 04:09 WBC 10.0 RBC 4.82 Hgb 15.2 Hct 46.1 MCV 95.5 MCH 31.6 MCHC 33.1 RDW 13.9 Plt Count 141 MPV 12.4 H Absolute Neuts (auto) 8.7 H Neutrophils % 87.1 H D Lymphocytes % 5.5 L D Monocytes % 7.2 Eosinophils % 0.1 D Basophils % 0.1 Nucleated RBC % 0 Platelet Estimate Decreased Platelet Comment Present ESR Cancelled PT with INR 11.70 INR 0.99 PTT (Actin FS) 28.2 D-Dimer Anticoagulation Therapy Puncture Site Patient Temperature ABG pH ABG pCO2 ABG pO2 ABG HCO3 ABG O2 Sat (Measured) ABG O2 Content ABG Base Excess Nishant Test Patient On Oxygen O2 Delivery Device Oxygen Flow Rate Vent Mode Vent Rate Mechanical Rate PEEP Pressure Support Vent Sodium Potassium Chloride Carbon Dioxide Anion Gap BUN Creatinine Est GFR (CKD-EPI)AfAm Est GFR (CKD-EPI)NonAf Random Glucose Lactic Acid Calcium Total Bilirubin AST ALT Alkaline Phosphatase LD Total Troponin I C-Reactive Protein B-Natriuretic Peptide Total Protein Albumin Urine Color Yellow Urine Appearance Clear Urine pH 5.0 Ur Specific [place] 1.018 Urine Protein Negative Urine Glucose (UA) Negative Urine Ketones Negative Urine Blood Negative Urine Nitrite Negative Urine Bilirubin Negative Urine Urobilinogen 0.2 Ur Leukocyte Esterase Negative Blood Type Antibody Screen 05/02/20 05/02/20 05/02/20 04:09 04:09 04:13 WBC RBC Hgb Hct MCV MCH MCHC RDW Plt Count MPV Absolute Neuts (auto) Neutrophils % Lymphocytes % Monocytes % Eosinophils % Basophils % Nucleated RBC % Platelet Estimate Platelet Comment ESR PT with INR INR PTT (Actin FS) D-Dimer Anticoagulation Therapy No Result Required. Puncture Site Right femoral Patient Temperature No Result Required. ABG pH 7.236 L ABG pCO2 46.60 H ABG pO2 109.6 H ABG HCO3 19.3 L ABG O2 Sat (Measured) 97.2 ABG O2 Content No Result Required. ABG Base Excess -8.1 L Nishant Test Not applicable Patient On Oxygen Yes O2 Delivery Device Nrm Oxygen Flow Rate 15l Vent Mode No Result Required. Vent Rate N Mechanical Rate No Result Required. PEEP No Result Required. Pressure Support Vent No Result Required. Sodium 135 L Potassium 4.7 Chloride 101 Carbon Dioxide 22 Anion Gap 12 BUN 35.0 H Creatinine 2.6 H Est GFR (CKD-EPI)AfAm 27.14 Est GFR (CKD-EPI)NonAf 23.42 Random Glucose 177 H Lactic Acid 4.0 H* Calcium 9.5 Total Bilirubin 0.7 AST 30 ALT 30 Alkaline Phosphatase 112 LD Total Troponin I 2.13 H* C-Reactive Protein B-Natriuretic Peptide 7220.3 H Total Protein 7.4 Albumin 3.8 Urine Color Urine Appearance Urine pH Ur Specific [place] Urine Protein Urine Glucose (UA) Urine Ketones Urine Blood Urine Nitrite Urine Bilirubin Urine Urobilinogen Ur Leukocyte Esterase Blood Type Antibody Screen 05/02/20 05/02/20 05/02/20 07:20 09:57 10:50 WBC RBC Hgb Hct MCV MCH MCHC RDW Plt Count MPV Absolute Neuts (auto) Neutrophils % Lymphocytes % Monocytes % Eosinophils % Basophils % Nucleated RBC % Platelet Estimate Platelet Comment ESR PT with INR INR PTT (Actin FS) D-Dimer Anticoagulation Therapy Puncture Site Patient Temperature ABG pH ABG pCO2 ABG pO2 ABG HCO3 ABG O2 Sat (Measured) ABG O2 Content ABG Base Excess Nishant Test Patient On Oxygen O2 Delivery Device Oxygen Flow Rate Vent Mode Vent Rate Mechanical Rate PEEP Pressure Support Vent Sodium 133 L Potassium 4.5 Chloride 100 Carbon Dioxide 21 Anion Gap 12 BUN 33.8 H Creatinine 2.8 H Est GFR (CKD-EPI)AfAm 24.81 Est GFR (CKD-EPI)NonAf 21.41 Random Glucose 196 H Lactic Acid Calcium 9.1 Total Bilirubin 0.5 AST 33 ALT 36 Alkaline Phosphatase 113 LD Total 415 H Troponin I 4.21 H* 4.95 H* C-Reactive Protein 5.3 H B-Natriuretic Peptide Total Protein 8.5 H Albumin 3.8 Urine Color Urine Appearance Urine pH Ur Specific [place] Urine Protein Urine Glucose (UA) Urine Ketones Urine Blood Urine Nitrite Urine Bilirubin Urine Urobilinogen Ur Leukocyte Esterase Blood Type A POSITIVE Antibody Screen Negative 05/02/20 05/02/20 05/02/20 10:50 17:30 17:30 WBC RBC Hgb Hct MCV MCH MCHC RDW Plt Count MPV Absolute Neuts (auto) Neutrophils % Lymphocytes % Monocytes % Eosinophils % Basophils % Nucleated RBC % Platelet Estimate Platelet Comment ESR PT with INR INR PTT (Actin FS) D-Dimer 3327 H Anticoagulation Therapy Puncture Site Patient Temperature ABG pH ABG pCO2 ABG pO2 ABG HCO3 ABG O2 Sat (Measured) ABG O2 Content ABG Base Excess Nishant Test Patient On Oxygen O2 Delivery Device Oxygen Flow Rate Vent Mode Vent Rate Mechanical Rate PEEP Pressure Support Vent Sodium Potassium Chloride Carbon Dioxide Anion Gap BUN Creatinine Est GFR (CKD-EPI)AfAm Est GFR (CKD-EPI)NonAf Random Glucose Lactic Acid 5.1 H* 5.0 H* Calcium Total Bilirubin AST ALT Alkaline Phosphatase LD Total Troponin I C-Reactive Protein B-Natriuretic Peptide Total Protein Albumin Urine Color Urine Appearance Urine pH Ur Specific [place] Urine Protein Urine Glucose (UA) Urine Ketones Urine Blood Urine Nitrite Urine Bilirubin Urine Urobilinogen Ur Leukocyte Esterase Blood Type Antibody Screen 05/02/20 17:30 WBC RBC Hgb Hct MCV MCH MCHC RDW Plt Count MPV Absolute Neuts (auto) Neutrophils % Lymphocytes % Monocytes % Eosinophils % Basophils % Nucleated RBC % Platelet Estimate Platelet Comment ESR 13 PT with INR INR PTT (Actin FS) D-Dimer Anticoagulation Therapy Puncture Site Patient Temperature ABG pH ABG pCO2 ABG pO2 ABG HCO3 ABG O2 Sat (Measured) ABG O2 Content ABG Base Excess Nishant Test Patient On Oxygen O2 Delivery Device Oxygen Flow Rate Vent Mode Vent Rate Mechanical Rate PEEP Pressure Support Vent Sodium Potassium Chloride Carbon Dioxide Anion Gap BUN Creatinine Est GFR (CKD-EPI)AfAm Est GFR (CKD-EPI)NonAf Random Glucose Lactic Acid Calcium Total Bilirubin AST ALT Alkaline Phosphatase LD Total Troponin I C-Reactive Protein B-Natriuretic Peptide Total Protein Albumin Urine Color Urine Appearance Urine pH Ur Specific [place] Urine Protein Urine Glucose (UA) Urine Ketones Urine Blood Urine Nitrite Urine Bilirubin Urine Urobilinogen Ur Leukocyte Esterase Blood Type Antibody Screen Home Medications Medication Instructions Recorded Lisinopril 15 mg PO DAILY 08/07/18 Metoprolol Succinate 25 mg PO DAILY 08/07/18 Olanzapine 5 mg PO HS 08/07/18 Aspirin [ASA -] 81 mg PO DAILY 05/02/20 Atorvastatin Ca [Lipitor] 80 mg PO HS 05/02/20 Tamsulosin HCl 0.4 mg PO HS 05/02/20 Current Medications Generic Name Dose Route Start Last Admin Trade Name Freq PRN Reason Stop Dose Admin Aspirin 81 mg 05/03/20 10:00 Asa - PO DAILY EDDI Atorvastatin Calcium 80 mg 05/02/20 22:00 Lipitor - PO HS [facility] Heparin Sodium (Porcine) 5,000 unit 05/02/20 14:00 05/02/20 14:18 Heparin - SQ Not Given TID EDDI Meropenem 1 gm/ Dextrose 100 mls @ 0 mls/hr 05/02/20 15:30 05/02/20 16:30 IVPB 100 mls/hr Q12H EDDI Administration As Directed Sodium Chloride 1,000 mls @ 50 mls/hr 05/02/20 17:00 Normal Saline - IV 05/03/20 16:49 ASDIR EDDI Metoprolol Succinate 25 mg 05/03/20 10:00 Toprol Xl - PO DAILY EDDI Pantoprazole Sodium 40 mg 05/02/20 14:15 05/02/20 15:00 Protonix Iv IVPUSH 40 mg DAILY EDDI Administration ASSESSMENT AND PLAN: 74 M Acute CHF exacerbation Acute hypoxemic and hypercapneic respiratory failure ?PE (cannot do CTA in view of renal function) HTN HLD Carotid stenosis CVA w/ R sided deficits/aphasia Suspected PNA due to aspiration L ear deafness Hematuria ?2/2 traumatic ambriz insertion Plan: NPO, Switch Abx to Meropenem per ID recs for aspiration PNA Trend lactate/trops/cont. BiPAP for respiratory failure PPI IV, speech and swallow evaluation, HOB elevation Hold Heparin in view of hematuria High instensity statin/BB DVT ppx: SCD for now GI/Pulm/ID/Cardio following
[2020-05-02 20:48] LABS: ALBUMIN 3.3 g/dl (3.4-5.0); BILIRUBIN,TOTAL 0.6 mg/dL (0.2-1); BLOOD UREA NITROGEN 45.5 mg/dL (7-18); CALCIUM 8.6 mg/dL (8.5-10.1); CREATININE 2.6 mg/dL (0.55-1.3); POTASSIUM 4.3 mmol/L (3.5-5.1); TOT PROT 6.8 g/dl (6.4-8.2)
[2020-05-02 22:21] LABS: EPI CELLS >36 /uL (0-25.1); HYALINE CASTS 44 /uL (0-3.1); URINE APPEARANCE TURBID; URINE BILIRUBIN 1+ (NEGATIVE); URINE COLOR RED; URINE GLUCOSE (UA) NEGATIVE (NEGATIVE); URINE KETONE NEGATIVE (NEGATIVE); URINE LEUK ESTERASE 1+ (NEGATIVE); URINE NITRITE POSITIVE (NEGATIVE); URINE PROTEIN 2+ (NEGATIVE); URINE UROBILINOGEN 0.2 mg/dL (0.2-1.0); URINE WBC 234 /uL (0-25.8)
[2020-05-02 23:07] LABS: URINE BACTERIA 2.2 /uL (0-1359); URINE RBC 19956.7 /uL (0-23.9)
[2020-05-02] MEDS: ATORVASTATIN CA 80 MG TABLET (FP) PO SCH (23:15)
[2020-05-03] MEDS ORDERED: DEXTROSE 5%-WATER 100 ML IVPB ONE ×2 (01:47→14:29)
[2020-05-03] MEDS ORDERED: MEROPENEM 1 GM VIAL (RESTRICTED TO ID) IVPB ONE ×2 (01:47→14:28)
[2020-05-03] MEDS: MEROPENEM 1 GM in DEXTROSE 5%-WATER 100 ML IVPB SCH ×2 (03:21→14:35)
[2020-05-03 06:47] LABS: BASO % 0.2 % (0-2.0); HEMATOCRIT 38.8 % (35.4-49); HEMOGLOBIN 12.8 GM/dL (11.7-16.9); LYMPH % 5.8 % (8-40); MCH 30.9 pg (25.7-33.7); MEAN CELL VOLUME 93.6 fl (80-96); MEAN PLT VOLUME 12.6 fl (7.5-11.1); MONO % 5.6 % (3.8-10.2); NEUT % 88.4 % (42.8-82.8); PLATELET COUNT 109 K/MM3 (134-434); RBC 4.15 M/mm3 (4.00-5.60); RDW 13.9 % (11.9-15.9); WHITE BLOOD COUNT 12.3 K/mm3 (4.0-10.0)
[2020-05-03 07:18] LABS: ALBUMIN 2.8 g/dl (3.4-5.0); BILIRUBIN,TOTAL 0.6 mg/dL (0.2-1); BLOOD UREA NITROGEN 43.8 mg/dL (7-18); CALCIUM 8.3 mg/dL (8.5-10.1); CREATININE 1.7 mg/dL (0.55-1.3); MAGNESIUM 2.3 mg/dL (1.8-2.4); PHOSPHOROUS 3.1 mg/dL (2.5-4.9); POTASSIUM 4.5 mmol/L (3.5-5.1); TOT PROT 5.7 g/dl (6.4-8.2)
[2020-05-03] MEDS ORDERED: PT OWN MED DRAWER 7, Y5N ONE (08:26)
--- NOTE | 2020-05-03 08:44 | PN ---
Progress Note, Physician History of Present Illness: awake and alert still on bipap says he does feel better in restraints - Current Medication List Current Medications: Active Medications Aspirin (Asa -) 81 mg PO DAILY [facility] Atorvastatin Calcium (Lipitor -) 80 mg PO HS [facility] Last Admin: 05/02/20 23:15 Dose: Not Given Documented by: Heparin Sodium (Porcine) (Heparin -) 5,000 unit SQ TID [facility] Last Admin: 05/02/20 14:18 Dose: Not Given Documented by: Meropenem 1 gm/ Dextrose 100 mls @ 0 mls/hr IVPB Q12H [facility] Last Admin: 05/03/20 03:21 Dose: 100 mls/hr Documented by: Sodium Chloride (Normal Saline -) 1,000 mls @ 50 mls/hr IV ASDIR [facility] Stop: 05/03/20 16:49 Last Admin: 05/02/20 21:00 Dose: 50 mls/hr Documented by: Metoprolol Succinate (Toprol Xl -) 25 mg PO DAILY [facility] Pantoprazole Sodium (Protonix Iv) 40 mg IVPUSH DAILY [facility] Last Admin: 05/02/20 15:00 Dose: 40 mg Documented by: - Objective Vital Signs: Vital Signs Temperature 98.5 F 05/03/20 05:32 Pulse Rate 68 05/03/20 05:32 Respiratory Rate 20 05/03/20 05:32 Blood Pressure 127/66 05/03/20 05:32 O2 Sat by Pulse Oximetry (%) 95 05/03/20 05:32 Constitutional: Yes: Other Cardiovascular: Yes: S1, S2 Respiratory: Yes: On BiPap, Poor Air Entry Gastrointestinal: Yes: Normal Bowel Sounds, Soft Musculoskeletal: Yes: WNL Extremities: Yes: WNL Neurological: Yes: Alert Psychiatric: Yes: Alert Labs: CBC, BMP 05/03/20 06:10 05/03/20 06:10 INR, PTT INR 0.99 (0.83-1.09) 05/02/20 03:55 - ....Imaging Chest X-ray: Report Reviewed, Image Reviewed Assessment/Plan Problem List - Problems (1) UDAY (acute kidney injury) Code(s): N17.9 - ACUTE KIDNEY FAILURE, UNSPECIFIED (2) Aspiration pneumonia Code(s): J69.0 - PNEUMONITIS DUE TO INHALATION OF FOOD AND VOMIT Qualifiers: Aspiration pneumonia type: due to vomit Laterality: left Lung location: unspecified part of lung Qualified Code(s): J69.0 - Pneumonitis due to inhalation of food and vomit (3) Coronary artery disease Code(s): I25.10 - ATHSCL HEART DISEASE OF [place] CORONARY ARTERY W/O ANG PCTRS Qualifiers: Coronary Disease-Associated Artery/Lesion type: [place] artery [place] vs. transplanted heart: [place] heart Associated angina: without angina Qualified Code(s): I25.10 - Atherosclerotic heart disease of [place] coronary artery [place] thout angina pectoris Impression 1. UDAY 2. resp failure requiring bipap 3. cad with hx of stents 4. elevated ldh 5. hx htn 6. vomiting 7. aspiration PNA 8. bph 9. hld plan continue abx resp support cx reports pending rest as per the team
--- NOTE | 2020-05-03 09:49 | PN ---
Progress Note, Physician Chief Complaint: Events noted Breathing better Denies chest pain or palpitations History of Present Illness: Patient was seen and examined. Awake and alert. Chart was reviewed - Current Medication List Current Medications: Active Medications Aspirin (Asa -) 81 mg PO DAILY [facility] Atorvastatin Calcium (Lipitor -) 80 mg PO HS [facility] Last Admin: 05/02/20 23:15 Dose: Not Given Documented by: Heparin Sodium (Porcine) (Heparin -) 5,000 unit SQ TID [facility] Last Admin: 05/02/20 14:18 Dose: Not Given Documented by: Meropenem 1 gm/ Dextrose 100 mls @ 0 mls/hr IVPB Q12H [facility] Last Admin: 05/03/20 03:21 Dose: 100 mls/hr Documented by: Sodium Chloride (Normal Saline -) 1,000 mls @ 50 mls/hr IV ASDIR [facility] Stop: 05/03/20 16:49 Last Admin: 05/02/20 21:00 Dose: 50 mls/hr Documented by: Metoprolol Succinate (Toprol Xl -) 25 mg PO DAILY [facility] Pantoprazole Sodium (Protonix Iv) 40 mg IVPUSH DAILY [facility] Last Admin: 05/02/20 15:00 Dose: 40 mg Documented by: - Objective Vital Signs: Vital Signs Temperature 98.5 F 05/03/20 05:32 Pulse Rate 68 05/03/20 05:32 Respiratory Rate 20 05/03/20 05:32 Blood Pressure 127/66 05/03/20 05:32 O2 Sat by Pulse Oximetry (%) 95 05/03/20 05:32 Neck: Yes: Supple Cardiovascular: Yes: Regular Rate and Rhythm, S1, S2 Respiratory: Yes: Diminished Gastrointestinal: Yes: Normal Bowel Sounds, Soft. No: Tenderness Edema: No Additional Findings/Remarks: - Review of Systems Constitutional: denies: Chills, Fever Cardiovascular: (+) Shortness of Breath. denies: Chest Pain, Palpitations Respiratory: (+) SOB. denies: Cough, Hemoptysis, Orthopnea, PND Gastrointestinal: denies: Abdominal Pain, Constipation, Diarrhea, Melena, Nausea, Rectal Bleeding, Vomiting Musculoskeletal: denies: Joint Pain. denies: Back Pain Neurological: denies: Dizziness, Headache. denies: Change in Speech, Confusion, Seizure, Syncope, Unsteady Gait Labs: CBC, BMP 05/03/20 06:10 05/03/20 06:10 INR, PTT INR 0.99 (0.83-1.09) 05/02/20 03:55 Problem List - Problems (1) UDAY (acute kidney injury) Code(s): N17.9 - ACUTE KIDNEY FAILURE, UNSPECIFIED (2) Acute respiratory failure with hypoxia and hypercapnia Code(s): J96.01 - ACUTE RESPIRATORY FAILURE WITH HYPOXIA; J96.02 - ACUTE RESPIRATORY FAILURE WITH HYPERCAPNIA (3) Aspiration pneumonia Code(s): J69.0 - PNEUMONITIS DUE TO INHALATION OF FOOD AND VOMIT Qualifiers: Aspiration pneumonia type: due to vomit Laterality: left Lung location: unspecified part of lung Qualified Code(s): J69.0 - Pneumonitis due to inhalation of food and vomit (4) Coronary artery disease Code(s): I25.10 - ATHSCL HEART DISEASE OF [place] CORONARY ARTERY W/O ANG PCTRS Qualifiers: Coronary Disease-Associated Artery/Lesion type: [place] artery [place] vs. transplanted heart: [place] heart Associated angina: without angina Qualified Code(s): I25.10 - Atherosclerotic heart disease of [place] coronary artery without angina pectoris (5) Demand ischemia Code(s): I24.8 - OTHER FORMS OF ACUTE ISCHEMIC HEART DISEASE (6) Hyperlipidemia Code(s): E78.5 - HYPERLIPIDEMIA, UNSPECIFIED Qualifiers: Hyperlipidemia type: pure hypercholesterolemia Qualified Code(s): E78.00 - Pure hypercholesterolemia, unspecified; E78.0 - Pure hypercholesterolemia (7) Hypertension Code(s): I10 - ESSENTIAL (PRIMARY) HYPERTENSION Qualifiers: Hypertension type: essential hypertension Qualified Code(s): I10 - Essential (primary) hypertension (8) Cerebrovascular accident (CVA) Code(s): I63.9 - CEREBRAL INFARCTION, UNSPECIFIED Qualifiers: CVA mechanism: occlusion Precerebral and cerebral artery: carotid artery Laterality of affected vessel: left Qualified Code(s): I63.232 - Cerebral infarction due to unspecified occlusion or stenosis of left carotid arteries Assessment/Plan 1. Acute hypoxic respiratory failure suspect aspiration pneumonia 2. CAD with demand ischemia 3. Carotid stents 4. Pacemaker placement 5. 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 UDAY 7. Hypertension 8. Hyperlipidemia 9. BPH 10. Partial small bowel obstruction PLAN: 1. Trend troponins peaked at 4.95 now trending down 2. Continue BIPAP, bronchodilator, O2 as needed and empiric antibiotics 3. Hold Lisinopril until renal function stabilizes 4. Continue Toprol XL 25 mg QD, Lipitor 80 mg QD and ASA 81 mg QD 5. Echocardiography report noted (normal LVEF 60-65%, mild to moderate MR, mild ) 6. ? Bowel rest except medication until stabilized Further cardiac plans to follow Moses Bassett MD
--- NOTE | 2020-05-03 10:54 | PN ---
Progress Note, COLLISION TECHNICIAN - Note Progress Note: GI imp-Being treated for suspected PNA following vomiting ? if vomiting precipitated by developing PNA Currently no focal findings on abdominal exam that would suggest ongoing ischemic colitis Laboratory Tests 05/02/20 06:35 COVID-19 (GABRIEL) Not detected Selected Entries 05/03/20 05/03/20 05/03/20 00:13 00:50 01:02 Supper Temperature 98.2 F Pulse Rate 112 H Pulse Rhythm [ Regular Apical] Respiratory 20 20 Rate Respiratory Shallow Depth Respiratory Short of Breath Effort Respiratory Tachypnea Pattern O2 Sat by Pulse 99 99 Oximetry (%) Oxygen Delivery Bi-pap Method Fraction of 50 50 Inspired Oxygen (FIO2) Oxygen Flow 15 Rate 05/03/20 05/03/20 05/03/20 04:25 05:30 05:32 Supper NPO Temperature 98.5 F Pulse Rate 68 Pulse Rhythm [ Apical] Respiratory 20 Rate Respiratory Depth Respiratory Effort Respiratory Pattern O2 Sat by Pulse 98 95 Oximetry (%) Oxygen Delivery Method Fraction of 50 Inspired Oxygen (FIO2) Oxygen Flow Rate 05/03/20 10:00 Supper Temperature 97.9 F Pulse Rate 84 Pulse Rhythm [ Apical] Respiratory 20 Rate Respiratory Depth Respiratory Effort Respiratory Pattern O2 Sat by Pulse 100 Oximetry (%) Oxygen Delivery Method Fraction of Inspired Oxygen (FIO2) Oxygen Flow Rate Laboratory Tests 05/02/20 05/03/20 04:09 06:10 WBC 10.0 12.3 H Admitted following coughing, Emesis, desaturation. On Bipap, NPO.
[2020-05-03 11:07] LABS: ANISOCYTOSIS 0; MACROCYTOSIS 0; PLATELET ESTIMATE NORMAL
--- NOTE | 2020-05-03 11:40 | PN ---
Progress Note (short form) - Note Progress Note: PULMONARY CONSULTATION DICTATED 05/03/20 IMP ACUTE HYPOXEMIC/HYPERCAPNEIC RESPIRATORY FAILURE LIKELY ASPIRATION UDAY + TROPONIN LIKELY DEMAND ISCHEMIA ELEVATED D-DIMER NON-SPECIFIC HTN H/O CVA ASHD S/P PPM HLD S/P CAROTID STENTS LACTIC ACIDOSIS PLAN SUPPLEMENTAL O2 TO MAINTAIN O2 SAT 90% NIPPV NEEDED ABX IVF INHALED BRONCHODILATORS ASPIRATION PRECAUTIONS TREND TROPONINS MONITOR LYTES,RENAL FUNCTION TREND LACTATE CHEST CT DUPLEX LOWER EXT F/U CHEST X-RAYS DR FRASER Problem List - Problems (1) Acute respiratory failure with hypoxia and hypercapnia Code(s): J96.01 - ACUTE RESPIRATORY FAILURE WITH HYPOXIA; J96.02 - ACUTE RESPIRATORY FAILURE WITH HYPERCAPNIA (2) UDAY (acute kidney injury) Code(s): N17.9 - ACUTE KIDNEY FAILURE, UNSPECIFIED (3) Aspiration pneumonia Code(s): J69.0 - PNEUMONITIS DUE TO INHALATION OF FOOD AND VOMIT Qualifiers: Aspiration pneumonia type: due to vomit Laterality: left Lung location: unspecified part of lung Qualified Code(s): J69.0 - Pneumonitis due to inhalation of food and vomit (4) Coronary artery disease Code(s): I25.10 - ATHSCL HEART DISEASE OF [id number] CORONARY ARTERY W/O ANG PCTRS Qualifiers: Coronary Disease-Associated Artery/Lesion type: [place] artery [place] vs. transplanted heart: [place] heart Associated angina: without angina Qualified Code(s): I25.10 - Atherosclerotic heart disease of [place] coronary artery without angina pectoris (5) Demand ischemia Code(s): I24.8 - OTHER FORMS OF ACUTE ISCHEMIC HEART DISEASE (6) Elevated troponin I level Code(s): R79.89 - OTHER SPECIFIED ABNORMAL FINDINGS OF BLOOD CHEMISTRY (7) Hyperlipidemia Code(s): E78.5 - HYPERLIPIDEMIA, UNSPECIFIED Qualifiers: Hyperlipidemia type: pure hypercholesterolemia Qualified Code(s): E78.00 - Pure hypercholesterolemia, unspecified; E78.0 - Pure hypercholesterolemia (8) Hypertension Code(s): I10 - ESSENTIAL (PRIMARY) HYPERTENSION Qualifiers: Hypertension type: essential hypertension Qualified Code(s): I10 - Essential (primary) hypertension (9) PNA (pneumonia) Code(s): J18.9 - PNEUMONIA, UNSPECIFIED ORGANISM Qualifiers: Pneumonia type: due to unspecified organism Laterality: bilateral Lung location: unspecified part of lung Qualified Code(s): J18.9 - Pneumonia, unspecified organism (10) Cerebrovascular accident (CVA) Code(s): I63.9 - CEREBRAL INFARCTION, UNSPECIFIED Qualifiers: CVA mechanism: occlusion Precerebral and cerebral artery: carotid artery Laterality of affected vessel: left Qualified Code(s): I63.232 - Cerebral infarction due to unspecified occlusion or stenosis of left carotid arteries
[2020-05-03] MEDS: ASPIRIN 81 MG CHEWABLE TABLETS PO SCH (11:42)
[2020-05-03] MEDS: PANTOPRAZOLE SODIUM 40 MG VIAL IVPUSH SCH (11:42)
[2020-05-03] MEDS: metoPROLOL SUCCINATE 25 MG TAB.SR.24H (FP) PO SCH (11:42)
--- NOTE | 2020-05-03 12:40 | PN ---
Progress Note, Physician History of Present Illness: Pt seen and examined at bedside. He feels that his breathing is improved. - Current Medication List Current Medications: Active Medications Aspirin (Asa -) 81 mg PO DAILY [facility] Last Admin: 05/03/20 11:42 Dose: Not Given Documented by: Atorvastatin Calcium (Lipitor -) 80 mg PO HS [facility] Last Admin: 05/02/20 23:15 Dose: Not Given Documented by: Heparin Sodium (Porcine) (Heparin -) 5,000 unit SQ TID [facility] Last Admin: 05/02/20 14:18 Dose: Not Given Documented by: Meropenem 1 gm/ Dextrose 100 mls @ 0 mls/hr IVPB Q12H [facility] Last Admin: 05/03/20 03:21 Dose: 100 mls/hr Documented by: Sodium Chloride (Normal Saline -) 1,000 mls @ 50 mls/hr IV ASDIR [facility] Stop: 05/03/20 16:49 Last Admin: 05/02/20 21:00 Dose: 50 mls/hr Documented by: Metoprolol Succinate (Toprol Xl -) 25 mg PO DAILY [facility] Last Admin: 05/03/20 11:42 Dose: Not Given Documented by: Pantoprazole Sodium (Protonix Iv) 40 mg IVPUSH DAILY [facility] Last Admin: 05/03/20 11:42 Dose: 40 mg Documented by: - Objective Vital Signs: Vital Signs Temperature 97.9 F 05/03/20 10:00 Pulse Rate 84 05/03/20 10:00 Respiratory Rate 20 05/03/20 10:00 Blood Pressure 143/82 05/03/20 10:00 O2 Sat by Pulse Oximetry (%) 100 05/03/20 10:00 Constitutional: Yes: Calm Eyes: Yes: Conjunctiva Clear HENT: Yes: Atraumatic Neck: Yes: Supple Cardiovascular: Yes: S1, S2 Respiratory: Yes: CTA Bilaterally Gastrointestinal: Yes: Normal Bowel Sounds, Soft Genitourinary: Yes: Romo Present Musculoskeletal: Yes: WNL Edema: No Neurological: Yes: Oriented Labs: CBC, BMP 05/03/20 06:10 05/03/20 06:10 INR, PTT INR 0.99 (0.83-1.09) 05/02/20 03:55 Problem List - Problems (1) UDAY (acute kidney injury) Code(s): N17.9 - ACUTE KIDNEY FAILURE, UNSPECIFIED (2) Aspiration pneumonia Code(s): J69.0 - PNEUMONITIS DUE TO INHALATION OF FOOD AND VOMIT Qualifiers: Aspiration pneumonia type: due to vomit Laterality: left Lung location: unspecified part of lung Qualified Code(s): J69.0 - Pneumonitis due to inhal ation of food and vomit (3) Coronary artery disease Code(s): I25.10 - ATHSCL HEART DISEASE OF [place] CORONARY ARTERY W/O ANG PCTRS Qualifiers: Coronary Disease-Associated Artery/Lesion type: [place] artery [place] vs. transplanted heart: [place] heart Associated angina: without angina Qualified Code(s): I25.10 - Atherosclerotic heart disease of [place] coronary artery without angina pectoris Assessment/Plan Current Medications Generic Name Dose Route Start Last Admin Trade Name Freq PRN Reason Stop Dose Admin Aspirin 81 mg 05/03/20 10:00 05/03/20 11:42 Asa - PO Not Given DAILY [facility] Atorvastatin Calcium 80 mg 05/02/20 22:00 05/02/20 23:15 Lipitor - PO Not Given HS [facility] Heparin Sodium (Porcine) 5,000 unit 05/02/20 14:00 05/02/20 14:18 Heparin - SQ Not Given TID [facility] Meropenem 1 gm/ Dextrose 100 mls @ 0 mls/hr 05/02/20 15:30 05/03/20 03:21 IVPB 100 mls/hr Q12H [facility] Administration As Directed Sodium Chloride 1,000 mls @ 50 mls/hr 05/02/20 17:00 05/02/20 21:00 Normal Saline - IV 05/03/20 16:49 50 mls/hr ASDIR [facility] Administration Metoprolol Succinate 25 mg 05/03/20 10:00 05/03/20 11:42 Toprol Xl - PO Not Given DAILY [facility] Pantoprazole Sodium 40 mg 05/02/20 14:15 05/03/20 11:42 Protonix Iv IVPUSH 40 mg DAILY [facility] Administration Impression 1. UDAY 2. resp failure requiring bipap 3. cad with hx of stents 4. elevated ldh 5. hx htn 6. vomiting 7. aspiration PNA 8. bph 9. hld Plan - follow renal ultrasound - re-ordered urine studies - renal function improving - cont fluids - pulm follow up - monitor volume status - follow cultures
--- NOTE | 2020-05-03 13:36 | ECHO ---
Name: NBA CASAS Exam:Adult Echocardiogram Study Date: 05/03/2020 12:06 PM Age: 74 yrs Reason For Study: LV Function Height: 66 in Weight: 200 lb BSA: 2.0 m2 MMode/2D Measurements & Calculations IVSd: 1.2 cm Ao root diam: 3.0 cm LVIDd: 4.2 cm LA dimension: 2.5 cm LVIDs: 2.4 cm LVPWd: 1.0 cm EDV(Teich): 80.2 ml LVOT diam: 2.0 cm ESV(Teich): 19.5 ml Doppler Measurements & Calculations MV E max tanner: 92.5 cm/sec Ao V2 max: 176.5 cm/sec MV A max tanner: 191.1 cm/sec Ao max P.5 mmHg MV E/A: 0.48 AI P1/2t: 710.9 msec MV dec time: 0.11 sec DYLAN(V,D): 1.9 cm2 AI max tanner: 162.1 cm/sec LV V1 max P.6 mmHg AI max P.6 mmHg LV V1 max: 107.7 cm/sec AI dec slope: 66.8 cm/sec2 MR max tanner: 442.3 cm/sec TR max tanner: 249.8 cm/sec MR max P.4 mmHg TR max P.0 mmHg PA V2 max: 99.1 cm/sec Med Peak E' Tanner: 4.1 cm/sec PA max P.9 mmHg Med E/e': 22.4 Lat Peak E' Tanner: 4.5 cm/sec Lat E/e': 20.7 Procedure The study was technically difficult with many images being suboptimal in quality. Left Ventricle There is borderline concentric left ventricular hypertrophy. Left ventricular systolic function is gr ossly normal. Ejection Fraction = 60-65%. The transmitral spectral Doppler flow pattern is suggestive of im paired LV relaxation. Regional wall motion abnormalities cannot be excluded due to limited visualization. Right Ventricle The right ventricle is normal in size and function. Atria Normal left and right atrial size and function. Mitral Valve There is moderate mitral annular calcification. Calcified mitral apparatus. There is mild to moderate mitral regurgitation. Tricuspid Valve The tricuspid valve is not well visualized, but is grossly normal. There is Trace to mild tricuspid regurgitation. Right ventricular systolic pressure is 30 mmhg. Aortic Valve There is moderate aortic sclerosis.;. Mild valvular aortic stenosis. The calculated aortic valve area using the continuity equation is 1.9 cm2. Pulmonic Valve The pulmonic valve is not well visualized. Great Vessels The aortic root is normal size. Pericardium/Pleura There is no pericardial effusion. Interpretation Summary The study was technically difficult with many images being suboptimal in quality. There is borderline concentric left ventricular hypertrophy. Left ventricular systolic function is gr ossly normal. Ejection Fraction = 60-65%. The right ventricle is normal in size and function. Normal left and right atrial size and function. There is moderate mitral annular calcification. Calcified mitral apparatus. There is mild to moderate mitral regurgitation. There is moderate aortic sclerosis. Mild valvular aortic stenosis. The calculated aortic valve area u sing the continuity equation is 1.9 cm2. MD Estefany Sheehan 05/03/2020 01:35 PM
[2020-05-03 14:22] LABS: EPI CELLS 16 /uL (0-25.1); HYALINE CASTS 3 /uL (0-3.1); URINE APPEARANCE CLEAR; URINE BACTERIA 11 /uL (0-1359); URINE BILIRUBIN NEGATIVE (NEGATIVE); URINE COLOR YELLOW; URINE GLUCOSE (UA) NEGATIVE (NEGATIVE); URINE KETONE NEGATIVE (NEGATIVE); URINE LEUK ESTERASE NEGATIVE (NEGATIVE); URINE NITRITE NEGATIVE (NEGATIVE); URINE PROTEIN 2+ (NEGATIVE); URINE RBC 2734 /uL (0-23.9); URINE UROBILINOGEN 0.2 mg/dL (0.2-1.0); URINE WBC 24 /uL (0-25.8)
--- NOTE | 2020-05-03 15:11 | CONS ---
PULMONARY CONSULTATION DATE OF CONSULTATION: 05/03/2020 REFERRING PHYSICIAN: Horace Bruno MD HISTORY: History is obtained from the chart. 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 Apparently the episode started after several dry coughs that led to the vomiting. Apparently the patient has had a cough for the past 2 days prior to admission. Apparently after the patient vomited it was noted that the patient's nail beds and fingertips were blue at which time he presented to the emergency room. In the ambulance the patient was noted to be hypoxic with O2 saturations in the 70s. He was placed on 100% nonrebreather. X-ray performed on admission revealed evidence of possible right perihilar infiltrate. He was admitted to the telemetry unit for further monitoring. On admission he was also placed on BiPAP with improvement in his oxygenation. He was also noted to have evidence of mixed respiratory metabolic acidosis. Lactate level was also noted to be elevated at 5.1 which improved with some hydration. He was also noted to be in acute renal failure. The patient was also noted to have elevated troponins of almost 4.95. No further history available at this time. PAST MEDICAL HISTORY: Again, includes hypertension, hyperlipidemia, carotid artery disease status post stents, status post permanent pacemaker, CVA with right residual weakness and aphasia, BPH. REVIEW OF SYSTEMS: Unable to obtain. CURRENT MEDICATIONS: Include meropenem, heparin, Toprol, normal saline, Lipitor, aspirin, Protonix. PHYSICAL EXAMINATION: General: Patient is an elderly male well-developed, well-nourished, awake on BiPAP. Vital Signs: He is currently afebrile. Blood pressure is 143/82. Respiratory rate is 20. O2 saturation is 100% on 50% oxygen. HEENT: Normocephalic, atraumatic. Neck: Supple. Heart: Regular, S1, S2. Chest: Bilateral rhonchi throughout. Abdomen: Soft. Bowel sounds are positive. Extremities: No cyanosis or edema. LABORATORIES: BUN 43, creatinine 1.7, most recent lactate 2.7, troponin 4.89. Blood gas pH of 7.23, pCO2 of 46, a pO2 of 109, bicarbonate of 19 and a saturation of 97.2. That was on 15 L of oxygen. WBC is 12, hemoglobin 12.8, hematocrit 38.8 with a platelet count of 109,000. D-dimer is 3327. Chest x-ray: Prominent hilar, presence of left perihilar infiltrate. IMPRESSION: 1. Acute hypoxemic hypercapnic respiratory failure secondary to likely aspiration pneumonia. 2. Acute kidney injury. 3. Positive troponin, likely demand ischemia, rule out myocardial infarction. 4. Elevated D-dimer nonspecific. 5. Hypertension. 6. History of cerebrovascular accident with R-sided weakness and aphasia. 7. History of atherosclerotic heart disease. 8. Status post permanent pacemaker. 9. Hypertension. 10. Hyperlipidemia. 11. Status post carotid stents. 12. Lactic acidosis. PLAN: Supplemental O2 to maintain O2 saturation 90% or greater, NIPPV as needed, antibiotics. Follow up ABGs. IV fluids. Inhaled bronchodilators. Continue aspiration precautions. Trend troponins, monitor electrolytes, renal functions, trend lactate. CT scan of the chest. Lower extremity duplex as well as followup chest x-rays. HORACE FRASER M.D. TAN/[id number] JEWEL
--- NOTE | 2020-05-03 15:22 | PN ---
Physical Exam: SUBJECTIVE: Patient seen and examined. OBJECTIVE: Vital Signs Period Temp Pulse Resp BP Sys/Su Pulse Ox Last 24 Hr 97.9 F-98.5 F 68-116 20-24 110-144/66-84 95-100 GENERAL: The patient is awake, alert, and fully oriented, in no acute distress. HEAD: Normal with no signs of trauma. EYES: PERRL, extraocular movements intact, sclera anicteric, conjunctiva clear. No ptosis. ENT: Ears normal, nares patent, oropharynx clear without exudates, moist mucous membranes. NECK: Trachea midline, full range of motion, supple. LUNGS: Breath sounds equal, clear to auscultation bilaterally, no wheezes, no crackles, no accessory muscle use. HEART: Regular rate and rhythm, S1, S2 without murmur, rub or gallop. ABDOMEN: Soft, nontender, nondistended, normoactive bowel sounds, no guarding, no rebound, no hepatosplenomegaly, no masses. EXTREMITIES: 2+ pulses, warm, well-perfused, no edema. NEUROLOGICAL: Cranial nerves II through XII grossly intact. Normal speech, gait not observed. PSYCH: Normal mood, normal affect. SKIN: Warm, dry, normal turgor, no rashes or lesions noted Laboratory Results - last 24 hr 05/02/20 05/02/20 05/02/20 06:10 06:35 07:20 WBC RBC Hgb Hct MCV MCH MCHC RDW Plt Count MPV Absolute Neuts (auto) Neutrophils % Neutrophils % (Manual) Band Neutrophils % Lymphocytes % Lymphocytes % (Manual) Monocytes % Monocytes % (Manual) Eosinophils % Eosinophils % (Manual) Basophils % Basophils % (Manual) Myelocytes % (Man) Promyelocytes % (Man) Blast Cells % (Manual) Nucleated RBC % Metamyelocytes Hypochromia Platelet Estimate Platelet Comment Polychromasia Poikilocytosis Anisocytosis Microcytosis Macrocytosis ESR D-Dimer Sodium 133 L Potassium 4.5 Chloride 100 Carbon Dioxide 21 Anion Gap 12 BUN 33.8 H Creatinine 2.8 H Est GFR (CKD-EPI)AfAm 24.81 Est GFR (CKD-EPI)NonAf 21.41 Random Glucose 196 H Lactic Acid 1.8 Calcium 9.1 Phosphorus Magnesium Total Bilirubin 0.5 AST 33 ALT 36 Alkaline Phosphatase 113 LD Total Cancelled Creatine Kinase Creatine Kinase Index CK-MB (CK-2) Troponin I 4.21 H* C-Reactive Protein Total Protein 8.5 H Albumin 3.8 Urine Color Urine Appearance Urine pH Ur Specific [place] Urine Protein Urine Glucose (UA) Urine Ketones Urine Blood Urine Nitrite Urine Bilirubin Urine Urobilinogen Ur Leukocyte Esterase Urine WBC (Auto) Urine RBC (Auto) Urine Casts (Auto) U Pathogenic Cast Auto U Epithel Cells (Auto) Urine Bacteria (Auto) Ur Random Creatinine Ur Random Sodium Ur Random Potassium Ur Random Chloride COVID-19 (GABRIEL) Not detected 05/02/20 05/02/20 05/02/20 10:50 17:30 17:30 WBC RBC Hgb Hct MCV MCH MCHC RDW Plt Count MPV Absolute Neuts (auto) Neutrophils % Neutrophils % (Manual) Band Neutrophils % Lymphocytes % Lymphocytes % (Manual) Monocytes % Monocytes % (Manual) Eosinophils % Eosinophils % (Manual) Basophils % Basophils % (Manual) Myelocytes % (Man) Promyelocytes % (Man) Blast Cells % (Manual) Nucleated RBC % Metamyelocytes Hypochromia Platelet Estimate Platelet Comment Polychromasia Poikilocytosis Anisocytosis Microcytosis Macrocytosis ESR D-Dimer 3327 H Sodium Potassium Chloride Carbon Dioxide Anion Gap BUN Creatinine Est GFR (CKD-EPI)AfAm Est GFR (CKD-EPI)NonAf Random Glucose Lactic Acid 5.0 H* Calcium Phosphorus Magnesium Total Bilirubin AST ALT Alkaline Phosphatase LD Total Creatine Kinase Creatine Kinase Index CK-MB (CK-2) Troponin I C-Reactive Protein 5.3 H Total Protein Albumin Urine Color Urine Appearance Urine pH Ur Specific [place] Urine Protein Urine Glucose (UA) Urine Ketones Urine Blood Urine Nitrite Urine Bilirubin Urine Urobilinogen Ur Leukocyte Esterase Urine WBC (Auto) Urine RBC (Auto) Urine Casts (Auto) U Pathogenic Cast Auto U Epithel Cells (Auto) Urine Bacteria (Auto) Ur Random Creatinine Ur Random Sodium Ur Random Potassium Ur Random Chloride COVID-19 (GABRIEL) 05/02/20 05/02/20 05/02/20 17:30 17:30 20:40 WBC RBC Hgb Hct MCV MCH MCHC RDW Plt Count MPV Absolute Neuts (auto) Neutrophils % Neutrophils % (Manual) Band Neutrophils % Lymphocytes % Lymphocytes % (Manual) Monocytes % Monocytes % (Manual) Eosinophils % Eosinophils % (Manual) Basophils % Basophils % (Manual) Myelocytes % (Man) Promyelocytes % (Man) Blast Cells % (Manual) Nucleated RBC % Metamyelocytes Hypochromia Platelet Estimate Platelet Comment Polychromasia Poikilocytosis Anisocytosis Microcytosis Macrocytosis ESR 13 D-Dimer Sodium 139 Potassium 4.3 Chloride 104 Carbon Dioxide 20 L Anion Gap 15 BUN 45.5 H Creatinine 2.6 H Est GFR (CKD-EPI)AfAm 27.14 Est GFR (CKD-EPI)NonAf 23.42 Random Glucose 130 H Lactic Acid Calcium 8.6 Phosphorus Magnesium Total Bilirubin 0.6 AST 54 H ALT 31 Alkaline Phosphatase 87 LD Total 371 H Creatine Kinase Creatine Kinase Index CK-MB (CK-2) Troponin I 4.89 H* C-Reactive Protein Total Protein 6.8 Albumin 3.3 L Urine Color Red Urine Appearance Turbid Urine pH 5.0 Ur Specific [place] 1.024 Urine Protein 2+ H Urine Glucose (UA) Negative Urine Ketones Negative Urine Blood 2+ H Urine Nitrite Positive H Urine Bilirubin 1+ H Urine Urobilinogen 0.2 Ur Leukocyte Esterase 1+ H Urine WBC (Auto) 234 Urine RBC (Auto) 90098.7 Urine Casts (Auto) 44 U Pathogenic Cast Auto Negative U Epithel Cells (Auto) >36 Urine Bacteria (Auto) 2.2 Ur Random Creatinine Ur Random Sodium Ur Random Potassium Ur Random Chloride COVID-19 (GABRIEL) 05/02/20 05/03/20 05/03/20 20:40 00:00 06:10 WBC 12.3 H RBC 4.15 Hgb 12.8 Hct 38.8 D MCV 93.6 MCH 30.9 MCHC 33.0 RDW 13.9 Plt Count 109 L D MPV 12.6 H Absolute Neuts (auto) 10.9 H Neutrophils % 88.4 H Neutrophils % (Manual) 78.0 Band Neutrophils % 7.0 Lymphocytes % 5.8 L Lymphocytes % (Manual) 7.0 L Monocytes % 5.6 Monocytes % (Manual) 0 L Eosinophils % 0.0 D Eosinophils % (Manual) 0.0 Basophils % 0.2 Basophils % (Manual) 0.0 Myelocytes % (Man) 1 Promyelocytes % (Man) 0 Blast Cells % (Manual) 0 Nucleated RBC % 0 Metamyelocytes 2 Hypochromia 0 Platelet Estimate Normal Platelet Comment Rare giant plts Polychromasia 1+ Poikilocytosis 0 Anisocytosis 0 Microcytosis 0 Macrocytosis 0 ESR D-Dimer Sodium Potassium Chloride Carbon Dioxide Anion Gap BUN Creatinine Est GFR (CKD-EPI)AfAm Est GFR (CKD-EPI)NonAf Random Glucose Lactic Acid 2.7 H* Calcium Phosphorus Magnesium Total Bilirubin AST ALT Alkaline Phosphatase LD Total Creatine Kinase Creatine Kinase Index CK-MB (CK-2) Troponin I C-Reactive Protein Total Protein Albumin Urine Color Urine Appearance Urine pH Ur Specific [place] Urine Protein Urine Glucose (UA) Urine Ketones Urine Blood Urine Nitrite Urine Bilirubin Urine Urobilinogen Ur Leukocyte Esterase Urine WBC (Auto) Urine RBC (Auto) Urine Casts (Auto) U Pathogenic Cast Auto U Epithel Cells (Auto) Urine Bacteria (Auto) Ur Random Creatinine 157.0 H Ur Random Sodium 77 Ur Random Potassium 60.0 Ur Random Chloride 41 L COVID-19 (GABRIEL) 05/03/20 05/03/20 05/03/20 06:10 12:55 12:55 WBC RBC Hgb Hct MCV MCH MCHC RDW Plt Count MPV Absolute Neuts (auto) Neutrophils % Neutrophils % (Manual) Band Neutrophils % Lymphocytes % Lymphocytes % (Manual) Monocytes % Monocytes % (Manual) Eosinophils % Eosinophils % (Manual) Basophils % Basophils % (Manual) Myelocytes % (Man) Promyelocytes % (Man) Blast Cells % (Manual) Nucleated RBC % Metamyelocytes Hypochromia Platelet Estimate Platelet Comment Polychromasia Poikilocytosis Anisocytosis Microcytosis Macrocytosis ESR D-Dimer Sodium 140 Potassium 4.5 Chloride 109 H Carbon Dioxide 24 Anion Gap 6 L BUN 43.8 H Creatinine 1.7 H Est GFR (CKD-EPI)AfAm 45.36 Est GFR (CKD-EPI)NonAf 39.14 Random Glucose 105 Lactic Acid Calcium 8.3 L Phosphorus 3.1 Magnesium 2.3 Total Bilirubin 0.6 AST 54 H ALT 29 Alkaline Phosphatase 68 LD Total Creatine Kinase 1473 H Creatine Kinase Index 0.7 CK-MB (CK-2) 11.2 H Troponin I C-Reactive Protein Total Protein 5.7 L Albumin 2.8 L Urine Color Yellow Urine Appearance Clear Urine pH 5.0 Ur Specific [place] 1.022 Urine Protein 2+ H Urine Glucose (UA) Negative Urine Ketones Negative Urine Blood 3+ H Urine Nitrite Negative Urine Bilirubin Negative Urine Urobilinogen 0.2 Ur Leukocyte Esterase Negative Urine WBC (Auto) 24 Urine RBC (Auto) 2734 Urine Casts (Auto) 3 U Pathogenic Cast Auto U Epithel Cells (Auto) 16 Urine Bacteria (Auto) 11 Ur Random Creatinine 103.0 Ur Random Sodium 119 Ur Random Potassium 39.1 Ur Random Chloride 128 COVID-19 (GABRIEL) Active Medications Generic Name Dose Route Start Last Admin Trade Name Freq PRN Reason Stop Dose Admin Aspirin 81 mg 05/03/20 10:00 05/03/20 11:42 Asa - PO Not Given DAILY [facility] Atorvastatin Calcium 80 mg 05/02/20 22:00 05/02/20 23:15 Lipitor - PO Not Given HS [facility] Heparin Sodium (Porcine) 5,000 unit 05/02/20 14:00 05/02/20 14:18 Heparin - SQ Not Given TID [facility] Meropenem 1 gm/ Dextrose 100 mls @ 0 mls/hr 05/02/20 15:30 05/03/20 14:35 IVPB 200 mls/hr Q12H [facility] Administration As Directed Sodium Chloride 1,000 mls @ 50 mls/hr 05/02/20 17:00 05/02/20 21:00 Normal Saline - IV 05/03/20 16:49 50 mls/hr ASDIR [facility] Administration Metoprolol Succinate 25 mg 05/03/20 10:00 05/03/20 11:42 Toprol Xl - PO Not Given DAILY [facility] Pantoprazole Sodium 40 mg 05/02/20 14:15 05/03/20 11:42 Protonix Iv IVPUSH 40 mg DAILY [facility] Administration Tamsulosin HCl 0.4 mg 05/03/20 22:00 Flomax - PO HS [facility] ASSESSMENT/PLAN: Pt is a 74 year old male with PMHx of HTN, HLD, carotid stents, pacemaker placement, 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 On restraints due to combative. #Acute respiratory failure 2/2 to pneumonia likely aspiration -On BiPAP -No O2 requirements at home -On meropenem; ID consulted -Lactic acidosis; downtrending, follow up AM -No leukocytosis, afebrile -NPO for aspiration risk; speech and swallow states continued NPO #UDAY -Cr improving, 2.6 --> 1.7 -cont 50cc/hr #SBO -abdominal x-ray showing SBO -CT ab/pelvis when stable -consulted surg per GI rec #Elevated troponin -Downtrending, latest 3.18 -No EKG changes, asymptomatic -Per cardio, no need for heparin or intervention -Likely secondary to UDAY or infectious state #Hx of HTN -Continue metoprolol -Held lisinopril due to UDAY #Hx of HLD -Continue lipitor #Hx of BPH -Continue flomax FEN -NS 50cc/hr -Monitor electrolytes -NPO for aspiration risk PPx Heparin 5000u TID Dispo Admitted to tele. On BiPAP. NPO due to aspiration risk. On meropenem. Visit type - Emergency Visit Emergency Visit: Yes ED Registration Date: 05/02/20 Care time: The patient presented to the Emergency Department on the above date and was hospitalized for further evaluation of their emergent condition. - New Patient This patient is new to me today: No - Critical Care Critical Care patient: No - Medication Review Med list reviewed for High Risk Meds patients 65 and older: Yes ATTENDING PHYSICIAN STATEMENT I saw and evaluated the patient. I reviewed the resident's note and discussed the case with the resident. I agree with the resident's findings and plan as documented. SUBJECTIVE: OBJECTIVE: ASSESSMENT AND PLAN:
[2020-05-03] MEDS ORDERED: SODIUM CHLORIDE 1,000 ML IV SCH (16:30)
--- NOTE | 2020-05-03 17:37 | PN.GI ---
GI Progress Note Subjective: On CPAP AXR raised question of SBO No vomiting - Objective Vital Signs: Vital Signs Temperature 98.2 F 05/03/20 14:00 Pulse Rate 84 05/03/20 14:00 Respiratory Rate 20 05/03/20 14:00 Blood Pressure 144/68 05/03/20 14:00 O2 Sat by Pulse Oximetry (%) 100 05/03/20 10:00 Constitutional: Calm Eyes: No: Sclera Icterus Cardiovascular: Yes: Other (heart sounds obbscured by CPAP machinf and upper airway noise) Respiratory: Yes: Diminished (At bases bilaterally) Gastrointestinal Inspection: Yes: Distention ...Palpate: No: Tenderness ...Percussion: No: Tympanitic Edema: No (No LE edema) Neurological: Yes: Alert Labs: CBC, BMP 05/03/20 06:10 05/03/20 06:10 INR, PTT INR 0.99 (0.83-1.09) 05/02/20 03:55 Problem List - Problems (1) PNA (pneumonia) Assessment/Plan: Treatment per primary team Code(s): J18.9 - PNEUMONIA, UNSPECIFIED ORGANISM Qualifiers: Pneumonia type: due to unspecified organism Laterality: bilateral Lung location: unspecified part of lung Qualified Code(s): J18.9 - Pneumonia, unspecified organism (2) Abnormal abdominal x-ray Assessment/Plan: Question of SBO on AXR from yesterday. This was discussed with medical program specialist Shanda. Advised: Repeat AXR Surgical evaluation If persistent Vomiting, NGT CT scan A/P with PO contrast when clinical status permits Code(s): R93.5 - ABN FINDINGS ON DX IMAGING OF ABD REGIONS, INC RETROPERITON
--- NOTE | 2020-05-03 17:46 | PN ---
Teaching Attending Note Name of Resident: Melissa Henao ATTENDING PHYSICIAN STATEMENT I saw and evaluated the patient. I reviewed the resident's note and discussed the case with the resident. I agree with the resident's findings and plan as documented. SUBJECTIVE: pt seen and examined OBJECTIVE: Last Vital Signs Temp Pulse Resp BP Pulse Ox 98.2 F 84 20 144/68 100 05/03/20 14:00 05/03/20 14:00 05/03/20 14:00 05/03/20 14:00 05/03/20 10:00 GENERAL: Awake, alert, and confused, in no acute distress. HEENT: AT/NC, not p/c/j, EMOI LUNGS: Breath sounds equal, bibasilar crackles. No accessory muscle use. HEART: Regular rate and rhythm, normal S1 and S2 ABDOMEN: Soft, nontender, not distended MUSCULOSKELETAL: Normal range of motion at all joints. No bony deformities or tenderness. No CVA tenderness. UPPER EXTREMITIES: 2+ pulses, warm, well-perfused. No cyanosis. No clubbing. No peripheral edema. LOWER EXTREMITIES: 2+ pulses, warm, well-perfused. No calf tenderness. No peripheral edema. NEUROLOGICAL: Cranial nerves II-XII intact. Normal speech. Laboratory Last Values WBC 12.3 K/mm3 (4.0-10.0) H 05/03/20 06:10 RBC 4.15 M/mm3 (4.00-5.60) 05/03/20 06:10 Hgb 12.8 GM/dL (11.7-16.9) 05/03/20 06:10 Hct 38.8 % (35.4-49) D 05/03/20 06:10 MCV 93.6 fl (80-96) 05/03/20 06:10 MCH 30.9 pg (25.7-33.7) 05/03/20 06:10 MCHC 33.0 g/dl (32.0-35.9) 05/03/20 06:10 RDW 13.9 % (11.9-15.9) 05/03/20 06:10 Plt Count 109 K/MM3 (134-434) L D 05/03/20 06:10 MPV 12.6 fl (7.5-11.1) H 05/03/20 06:10 Absolute Neuts (auto) 10.9 K/mm3 (1.5-8.0) H 05/03/20 06:10 Neutrophils % 88.4 % (42.8-82.8) H 05/03/20 06:10 Neutrophils % (Manual) 78.0 % (42.8-82.8) 05/03/20 06:10 Band Neutrophils % 7.0 % 05/03/20 06:10 Lymphocytes % 5.8 % (8-40) L 05/03/20 06:10 Lymphocytes % (Manual) 7.0 % (8-40) L 05/03/20 06:10 Monocytes % 5.6 % (3.8-10.2) 05/03/20 06:10 Monocytes % (Manual) 0 % (3.8-10.2) L 05/03/20 06:10 Eosinophils % 0.0 % (0-4.5) D 05/03/20 06:10 Eosinophils % (Manual) 0.0 % (0-4.5) 05/03/20 06:10 Basophils % 0.2 % (0-2.0) 05/03/20 06:10 Basophils % (Manual) 0.0 % (0-2.0) 05/03/20 06:10 Myelocytes % (Man) 1 % (0-2) 05/03/20 06:10 Promyelocytes % (Man) 0 % (0-2) 05/03/20 06:10 Blast Cells % (Manual) 0 % (0-0) 05/03/20 06:10 Nucleated RBC % 0 % (0-0) 05/03/20 06:10 Metamyelocytes 2 % (0-2) 05/03/20 06:10 Hypochromia 0 05/03/20 06:10 Platelet Estimate Normal 05/03/20 06:10 Platelet Comment No clumping noted 05/03/20 06:10 Platelet Comment Rare giant plts 05/03/20 06:10 Polychromasia 1+ 05/03/20 06:10 Poikilocytosis 0 05/03/20 06:10 Anisocytosis 0 05/03/20 06:10 Microcytosis 0 05/03/20 06:10 Macrocytosis 0 05/03/20 06:10 ESR 13 mm/hr (0-20) 05/02/20 17:30 PT with INR 11.70 SEC (9.7-13.0) 05/02/20 03:55 INR 0.99 (0.83-1.09) 05/02/20 03:55 PTT (Actin FS) 28.2 SECONDS (25.2-36.5) 05/02/20 03:55 D-Dimer 3327 ng/ml (0-500) H 05/02/20 17:30 Anticoagulation Therapy No Result Required. 05/02/20 04:13 Puncture Site Right femoral 05/02/20 04:13 Patient Temperature No Result Required. 05/02/20 04:13 ABG pH 7.236 (7.350-7.450) L 05/02/20 04:13 ABG pCO2 46.60 mmHg (35-45) H 05/02/20 04:13 ABG pO2 109.6 mmHg (80-100) H 05/02/20 04:13 ABG HCO3 19.3 mmol/L (22-27) L 05/02/20 04:13 ABG O2 Sat (Measured) 97.2 mmHg (95-98) 05/02/20 04:13 ABG O2 Content No Result Required. 05/02/20 04:13 ABG Base Excess -8.1 mmol/L (-2-2) L 05/02/20 04:13 Nishant Test Not applicable 05/02/20 04:13 Patient On Oxygen Yes 05/02/20 04:13 O2 Delivery Device Nrm 05/02/20 04:13 Oxygen Flow Rate 15l 05/02/20 04:13 Vent Mode No Result Required. 05/02/20 04:13 Vent Rate N 05/02/20 04:13 Mechanical Rate No Result Required. 05/02/20 04:13 PEEP No Result Required. 05/02/20 04:13 Pressure Support Vent No Result Required. 05/02/20 04:13 Sodium 140 mmol/L (136-145) 05/03/20 06:10 Potassium 4.5 mmol/L (3.5-5.1) 05/03/20 06:10 Chloride 109 mmol/L (98-107) H 05/03/20 06:10 Carbon Dioxide 24 mmol/L (21-32) 05/03/20 06:10 Anion Gap 6 MMOL/L (8-16) L 05/03/20 06:10 BUN 43.8 mg/dL (7-18) H 05/03/20 06:10 Creatinine 1.7 mg/dL (0.55-1.3) H 05/03/20 06:10 Est GFR (CKD-EPI)AfAm 45.36 05/03/20 06:10 Est GFR (CKD-EPI)NonAf 39.14 05/03/20 06:10 Random Glucose 105 mg/dL (74-106) 05/03/20 06:10 Lactic Acid 2.7 mmol/L (0.4-2.0) H* 05/03/20 00:00 Calcium 8.3 mg/dL (8.5-10.1) L 05/03/20 06:10 Phosphorus 3.1 mg/dL (2.5-4.9) 05/03/20 06:10 Magnesium 2.3 mg/dL (1.8-2.4) 05/03/20 06:10 Total Bilirubin 0.6 mg/dL (0.2-1) 05/03/20 06:10 AST 54 U/L (15-37) H 05/03/20 06:10 ALT 29 U/L (13-61) 05/03/20 06:10 Alkaline Phosphatase 68 U/L (45-117) 05/03/20 06:10 LD Total 371 U/L (87-246) H 05/02/20 17:30 Creatine Kinase 1473 U/L (26-308) H 05/03/20 06:10 Creatine Kinase Index 0.7 % (0.0-5.0) 05/03/20 06:10 CK-MB (CK-2) 11.2 ng/mL (0.5-3.6) H 05/03/20 06:10 Troponin I 3.18 ng/ml (0.00-0.05) H* 05/03/20 06:10 C-Reactive Protein 5.3 MG/DL (0.00-0.3) H 05/02/20 10:50 B-Natriuretic Peptide 7220.3 pg/ml (5-125) H 05/02/20 04:09 Total Protein 5.7 g/dl (6.4-8.2) L 05/03/20 06:10 Albumin 2.8 g/dl (3.4-5.0) L 05/03/20 06:10 Urine Color Yellow 05/03/20 12:55 Urine Appearance Clear 05/03/20 12:55 Urine pH 5.0 (5.0-8.0) 05/03/20 12:55 Ur Specific [place] 1.022 (1.010-1.035) 05/03/20 12:55 Urine Protein 2+ (NEGATIVE) H 05/03/20 12:55 Urine Glucose (UA) Negative (NEGATIVE) 05/03/20 12:55 Urine Ketones Negative (NEGATIVE) 05/03/20 12:55 Urine Blood 3+ (NEGATIVE) H 05/03/20 12:55 Urine Nitrite Negative (NEGATIVE) 05/03/20 12:55 Urine Bilirubin Negative (NEGATIVE) 05/03/20 12:55 Urine Urobilinogen 0.2 mg/dL (0.2-1.0) 05/03/20 12:55 Ur Leukocyte Esterase Negative (NEGATIVE) 05/03/20 12:55 Urine WBC (Auto) 24 /uL (0-25.8) 05/03/20 12:55 Urine RBC (Auto) 2734 /uL (0-23.9) 05/03/20 12:55 Urine Casts (Auto) 3 /uL (0-3.1) 05/03/20 12:55 U Pathogenic Cast Auto Negative /lpf (NEGATIVE) 05/02/20 20:40 U Epithel Cells (Auto) 16 /uL (0-25.1) 05/03/20 12:55 Urine Bacteria (Auto) 11 /uL (0-1359) 05/03/20 12:55 Ur Random Creatinine 103.0 mg/dL (30-150) 05/03/20 12:55 Ur Random Sodium 119 MMOL/L (40-220) 05/03/20 12:55 Ur Random Potassium 39.1 MMOL/L (25-125) 05/03/20 12:55 Ur Random Chloride 128 MMOL/L (110-250) 05/03/20 12:55 COVID-19 (GABRIEL) Not detected (Not Detected) 05/02/20 06:35 Blood Type A POSITIVE 05/02/20 09:57 Antibody Screen Negative 05/02/20 09:57 Active Medications Aspirin (Asa -) 81 mg PO DAILY [facility] Last Admin: 05/03/20 11:42 Dose: Not Given Documented by: Atorvastatin Calcium (Lipitor -) 80 mg PO HS [facility] Last Admin: 05/02/20 23:15 Dose: Not Given Documented by: Heparin Sodium (Porcine) (Heparin -) 5,000 unit SQ TID [facility] Last Admin: 05/02/20 14:18 Dose: Not Given Documented by: Meropenem 1 gm/ Dextrose 100 mls @ 0 mls/hr IVPB Q12H [facility] Last Admin: 05/03/20 14:35 Dose: 200 mls/hr Documented by: Sodium Chloride (Normal Saline -) 1,000 mls @ 50 mls/hr IV ASDIR [facility] Metoprolol Succinate (Toprol Xl -) 25 mg PO DAILY [facility] Last Admin: 05/03/20 11:42 Dose: Not Given Documented by: Pantoprazole Sodium (Protonix Iv) 40 mg IVPUSH DAILY [facility] Last Admin: 05/03/20 11:42 Dose: 40 mg Documented by: ASSESSMENT AND PLAN: Pt is a 74 year old male with PMHx of HTN, HLD, carotid stents, pacemaker placement, 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 On restraints due to combative. 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
[2020-05-03] MEDS: ATORVASTATIN CA 80 MG TABLET (FP) PO SCH (21:00)
[2020-05-03] MEDS: HEPARIN NA (PORCINE) 5,000 UNITS/ML 1ML VIAL SQ SCH (21:16)
[2020-05-03] MEDS ORDERED: TAMSULOSIN HCL 0.4 MG CAP PO SCH (22:00)
[2020-05-04] MEDS ORDERED: ACETAMINOPHEN 1000 MG/100 ML VIAL (NON FORMULARY) IVPB ONE (01:09)
--- NOTE | 2020-05-04 01:48 | HOSP ---
Subjective - Review of Symptoms Events since last encounter: On-call night time doctor paged at 1:10am due to patient having a fever of 101.1F, which is the first time the patient has had a fever since admission per the chart. Patient examined at bedside. Patient was sleeping on bipap machine. Lungs sounded diminished bilaterally. Since the patient had a fever despite being on antibiotics, a full fever workup was ordered: Blood cultures, Urine cultures, CXR, and U/A. Physical Examination Vital Signs: Vital Signs Temperature 99.6 F 05/03/20 21:00 Pulse Rate 99 H 05/03/20 21:00 Respiratory Rate 05/03/20 21:00 Blood Pressure 156/93 05/03/20 21:00 O2 Sat by Pulse Oximetry (%) 97 05/04/20 00:12 Constitutional: Yes: No Distress, Other (Sleeping using BiPap machine) Cardiovascular: Yes: Regular Rate and Rhythm. No: Murmur Respiratory: Yes: Diminished Gastrointestinal: Yes: Soft Extremities: Yes: Other (No edema) Labs: CBC, BMP 05/03/20 06:10 05/03/20 06:10 Visit type - Medication Review Med list reviewed for High Risk Meds patients 65 and older: Yes - Emergency Visit Emergency Visit: Yes ED Registration Date: 05/02/20 Care time: The patient presented to the Emergency Department on the above date and was hospitalized for further evaluation of their emergent condition. - New Patient This patient is new to me today: Yes Date on this admission: 05/04/20 - Critical Care Critical Care patient: No
[2020-05-04] MEDS ORDERED: MEROPENEM 1 GM VIAL (RESTRICTED TO ID) IVPB ONE ×2 (02:14→14:58)
[2020-05-04] MEDS ORDERED: DEXTROSE 5%-WATER 100 ML IVPB ONE ×2 (02:15→14:58)
[2020-05-04] MEDS: MEROPENEM 1 GM in DEXTROSE 5%-WATER 100 ML IVPB SCH ×2 (02:37→15:04)
[2020-05-04 04:06] LABS: EPI CELLS 8 /uL (0-25.1); HYALINE CASTS 2 /uL (0-3.1); URINE APPEARANCE CLEAR; URINE BACTERIA 11 /uL (0-1359); URINE BILIRUBIN NEGATIVE (NEGATIVE); URINE COLOR YELLOW; URINE GLUCOSE (UA) NEGATIVE (NEGATIVE); URINE KETONE 2+ (NEGATIVE); URINE LEUK ESTERASE NEGATIVE (NEGATIVE); URINE NITRITE NEGATIVE (NEGATIVE); URINE PROTEIN 2+ (NEGATIVE); URINE RBC 798 /uL (0-23.9); URINE UROBILINOGEN 0.2 mg/dL (0.2-1.0); URINE WBC 21 /uL (0-25.8)
[2020-05-04] MEDS: HEPARIN NA (PORCINE) 5,000 UNITS/ML 1ML VIAL SQ SCH ×3 (06:24→21:14)
--- NOTE | 2020-05-04 06:43 | PN.GI ---
GI Progress Note Subjective: no report of vomiting overnight ; no new complaints - Objective Vital Signs: Vital Signs Temperature 98.8 F 05/04/20 06:00 Pulse Rate 56 L 05/04/20 06:00 Respiratory Rate 18 05/04/20 06:00 Blood Pressure 118/61 05/04/20 06:00 O2 Sat by Pulse Oximetry (%) 98 05/04/20 06:00 Constitutional: No Distress, Calm Eyes: Yes: WNL Respiratory: Yes: WNL, Regular, CTA Bilaterally, Other (coarse) Gastrointestinal Inspection: Yes: WNL ...Auscultate: Yes: Normoactive Bowel Sounds Labs: CBC, BMP 05/03/20 06:10 05/03/20 06:10 INR, PTT INR 0.99 (0.83-1.09) 05/02/20 03:55 Problem List - Problems (1) Abnormal abdominal x-ray Assessment/Plan: repeat axr ordered if no further sign of sbo trial of clear liquid diet avoid narcotics surgery f/u Code(s): R93.5 - ABN FINDINGS ON DX IMAGING OF ABD REGIONS, INC RETROPERITON
[2020-05-04 08:17] LABS: POTASSIUM 4.2 mmol/L (3.5-5.1)
[2020-05-04 08:32] LABS: BASO % 0.4 % (0-2.0); EOS % 0.1 % (0-4.5); HEMATOCRIT 34.6 % (35.4-49); HEMOGLOBIN 11.7 GM/dL (11.7-16.9); LYMPH % 8.5 % (8-40); MCH 31.9 pg (25.7-33.7); MCHC 33.8 g/dl (32.0-35.9); MEAN CELL VOLUME 94.3 fl (80-96); MONO % 3.7 % (3.8-10.2); NEUT % 87.3 % (42.8-82.8); PLATELET COUNT 96 K/MM3 (134-434); RBC 3.67 M/mm3 (4.00-5.60); RDW 13.5 % (11.9-15.9); WHITE BLOOD COUNT 11.6 K/mm3 (4.0-10.0)
[2020-05-04 08:33] LABS: ALBUMIN 2.5 g/dl (3.4-5.0); BILIRUBIN,TOTAL 0.8 mg/dL (0.2-1); BLOOD UREA NITROGEN 31.3 mg/dL (7-18); CALCIUM 7.9 mg/dL (8.5-10.1); CREATININE 1.2 mg/dL (0.55-1.3); MAGNESIUM 2.3 mg/dL (1.8-2.4); PHOSPHOROUS 2.2 mg/dL (2.5-4.9); TOT PROT 5.3 g/dl (6.4-8.2)
[2020-05-04] MEDS ORDERED: POTASSIUM PHOSPHATE 15 MM in SODIUM CHLORIDE 250 ML IVPB ONE (09:00)
--- NOTE | 2020-05-04 09:08 | EKG ---
Test Reason : Blood Pressure : / mmHG Vent. Rate : 085 BPM Atrial Rate : 085 BPM P-R Int : 194 ms QRS Dur : 164 ms QT Int : 436 ms P-R-T Axes : 067 -66 096 degrees QTc Int : 518 ms Atrial-sensed ventricular-paced rhythm ABNORMAL ECG WHEN COMPARED WITH ECG OF 02-MAY-2020 09:02, PREVIOUS ECG HAS UNDETERMINED RHYTHM, NEEDS REVIEW Confirmed by MD BETHANIE, DUSTY ([id number]) on 05/04/2020 9:08:00 AM Referred By: Lachelle DEMPSEY Confirmed By:DUSTY KOVACS MD
--- NOTE | 2020-05-04 10:03 | PN ---
Progress Note, Physician History of Present Illness: pulmonary alert,on vm,-resp distress - Current Medication List Current Medications: Active Medications Aspirin (Asa -) 81 mg PO DAILY [facility] Last Admin: 05/03/20 11:42 Dose: Not Given Documented by: Atorvastatin Calcium (Lipitor -) 80 mg PO HS [facility] Last Admin: 05/03/20 21:00 Dose: Not Given Documented by: Heparin Sodium (Porcine) (Heparin -) 5,000 unit SQ TID [facility] Last Admin: 05/04/20 06:24 Dose: 5,000 unit Documented by: Meropenem 1 gm/ Dextrose 100 mls @ 0 mls/hr IVPB Q12H [facility] Last Admin: 05/04/20 02:37 Dose: 100 mls/hr Documented by: Sodium Chloride (Normal Saline -) 1,000 mls @ 50 mls/hr IV ASDIR [facility] Last Admin: 05/03/20 21:16 Dose: 50 mls/hr Documented by: Potassium Phosphate 15 mm/ (Sodium Chloride) 255 mls @ 63.75 mls/hr IVPB ONCE ONE Stop: 05/04/20 12:59 Metoprolol Succinate (Toprol Xl -) 25 mg PO DAILY [facility] Last Admin: 05/03/20 11:42 Dose: Not Given Documented by: Pantoprazole Sodium (Protonix Iv) 40 mg IVPUSH DAILY [facility] Last Admin: 05/03/20 11:42 Dose: 40 mg Documented by: - Objective Vital Signs: Vital Signs Temperature 98.8 F 05/04/20 06:00 Pulse Rate 56 L 05/04/20 06:00 Respiratory Rate 18 05/04/20 06:00 Blood Pressure 118/61 05/04/20 06:00 O2 Sat by Pulse Oximetry (%) 99 05/04/20 08:32 Constitutional: Yes: Well Nourished, Calm Eyes: Yes: WNL HENT: Yes: WNL Neck: Yes: WNL Cardiovascular: Yes: Regular Rate and Rhythm, S1, S2 Respiratory: Yes: Rhonchi (scattered hebert rhonchi) Gastrointestinal: Yes: Normal Bowel Sounds, Soft Extremities: Yes: WNL Edema: No Labs: CBC, BMP 05/04/20 06:58 05/04/20 06:58 INR, PTT INR 0.99 (0.83-1.09) 05/02/20 03:55 Laboratory Tests 05/04/20 05/04/20 06:58 06:58 WBC 11.6 H Hgb 11.7 Hct 34.6 L Plt Count 96 L Lactic Acid 0.8 - ....Imaging Chest X-ray: Report Reviewed, Image Reviewed (LLL INFILTRATE) Problem List - Problems (1) Acute respiratory failure with hypoxia and hypercapnia Code(s): J96.01 - ACUTE RESPIRATORY FAILURE WITH HYPOXIA; J96.02 - ACUTE RESPIRATORY FAILURE WITH HYPERCAPNIA (2) UDAY (acute kidney injury) Code(s): N17.9 - ACUTE KIDNEY FAILURE, UNSPECIFIED (3) Aspiration pneumonia Code(s): J69.0 - PNEUMONITIS DUE TO INHALATION OF FOOD AND VOMIT Qualifiers: Aspiration pneumonia type: due to vomit Laterality: left Lung location: unspecified part of lung Qualified Code(s): J69.0 - Pneumonitis due to inhalation of food and vomit (4) Coronary artery disease Code(s): I25.10 - ATHSCL HEART DISEASE OF [place] CORONARY ARTERY W/O ANG PCTRS Qualifiers: Coronary Disease-Associated Artery/Lesion type: [place] artery [place] vs. transplanted heart: [place] heart Associated angina: without angina Qualified Code(s): I25.10 - Atherosclerotic heart disease of [place] coronary artery without angina pectoris (5) Demand ischemia Code(s): I24.8 - OTHER FORMS OF ACUTE ISCHEMIC HEART DISEASE (6) Elevated troponin I level Code(s): R79.89 - OTHER SPECIFIED ABNORMAL FINDINGS OF BLOOD CHEMISTRY (7) Hyperlipidemia Code(s): E78.5 - HYPERLIPIDEMIA, UNSPECIFIED Qualifiers: Hyperlipidemia type: pure hypercholesterolemia Qualified Code(s): E78.00 - Pure hypercholesterolemia, unspecified; E78.0 - Pure hypercholesterolemia (8) Hypertension Code(s): I10 - ESSENTIAL (PRIMARY) HYPERTENSION Qualifiers: Hypertension type: essential hypertension Qualified Code(s): I10 - Essential (primary) hypertension (9) PNA (pneumonia) Code(s): J18.9 - PNEUMONIA, UNSPECIFIED ORGANISM Qualifiers: Pneumonia type: due to unspecified organism Laterality: bilateral Lung location: unspecified part of lung Qualified Code(s): J18.9 - Pneumonia, unspecified organism (10) Cerebrovascular accident (CVA) Code(s): I63.9 - CEREBRAL INFARCTION, UNSPECIFIED Qualifiers: CVA mechanism: occlusion Precerebral and cerebral artery: carotid artery Laterality of affected vessel: left Qualified Code(s): I63.232 - Cerebral infarction due to unspecified occlusion or stenosis of left carotid arteries Assessment/Plan IMP ACUTE HYPOXEMIC/HYPERCAPNEIC RESPIRATORY FAILURE improving LIKELY ASPIRATION UDAY IMPROVING + TROPONIN LIKELY DEMAND ISCHEMIA ELEVATED D-DIMER NON-SPECIFIC HTN H/O CVA ASHD S/P PPM HLD S/P CAROTID STENTS LACTIC ACIDOSIS CORRECTED PLAN SUPPLEMENTAL O2 TO MAINTAIN O2 SAT 90% NIPPV NEEDED ABX IVF INHALED BRONCHODILATORS ASPIRATION PRECAUTIONS TREND TROPONINS MONITOR LYTES,RENAL FUNCTION CHEST CT DUPLEX LOWER EXT F/U CHEST X-RAYS DR FRASER Problem List - Problems (1) Acute respiratory failure with hypoxia and hypercapnia Code(s): J96.01 - ACUTE RESPIRATORY FAILURE WITH HYPOXIA; J96.02 - ACUTE RESPIRATORY FAILURE WITH HYPERCAPNIA (2) UDAY (acute kidney injury) Code(s): N17.9 - ACUTE KIDNEY FAILURE, UNSPECIFIED (3) Aspiration pneumonia Code(s): J69.0 - PNEUMONITIS DUE TO INHALATION OF FOOD AND VOMIT Qualifiers: Aspiration pneumonia type: due to vomit Laterality: left Lung location: unspecified part of lung Qualified Code(s): J69.0 - Pneumonitis due to inhalation of food and vomit (4) Coronary artery disease Code(s): I25.10 - ATHSCL HEART DISEASE OF [place] CORONARY ARTERY W/O ANG PCTRS Qualifiers: Coronary Disease-Associated Artery/Lesion type: [place] artery [place] vs. transplanted heart: [place] heart Associated angina: without angina Qualified Code(s): I25.10 - Atherosclerotic heart disease of [place] coronary artery without angina pectoris (5) Demand ischemia Code(s): I24.8 - OTHER FORMS OF ACUTE ISCHEMIC HEART DISEASE (6) Elevated troponin I level Code(s): R79.89 - OTHER SPECIFIED ABNORMAL FINDINGS OF BLOOD CHEMISTRY (7) Hyperlipidemia Code(s): E78.5 - HYPERLIPIDEMIA, UNSPECIFIED Qualifiers: Hyperlipidemia type: pure hypercholesterolemia Qualified Code(s): E78.00 - Pure hypercholesterolemia, unspecified; E78.0 - Pure hypercholesterolemia (8) Hypertension Code(s): I10 - ESSENTIAL (PRIMARY) HYPERTENSION Qualifiers: Hypertension type: essential hypertension Qualified Code(s): I10 - Essenti al (primary) hypertension (9) PNA (pneumonia) Code(s): J18.9 - PNEUMONIA, UNSPECIFIED ORGANISM Qualifiers: Pneumonia type: due to unspecified organism Laterality: bilateral Lung location: unspecified part of lung Qualified Code(s): J18.9 - Pneumonia, unspecified organism (10) Cerebrovascular accident (CVA) Code(s): I63.9 - CEREBRAL INFARCTION, UNSPECIFIED Qualifiers: CVA mechanism: occlusion Precerebral and cerebral artery: carotid artery Laterality of affected vessel: left Qualified Code(s): I63.232 - Cerebral infarction due to unspecified occlusion or stenosis of left carotid arteries
[2020-05-04] MEDS ORDERED: PT OWN MED DRAWER 7, Y5N ONE (10:06)
--- NOTE | 2020-05-04 10:10 | PN ---
Progress Note, Physician History of Present Illness: More responsive now off bipap on VM. - Current Medication List Current Medications: Active Medications Aspirin (Asa -) 81 mg PO DAILY [facility] Last Admin: 05/03/20 11:42 Dose: Not Given Documented by: Atorvastatin Calcium (Lipitor -) 80 mg PO HS [facility] Last Admin: 05/03/20 21:00 Dose: Not Given Documented by: Heparin Sodium (Porcine) (Heparin -) 5,000 unit SQ TID [facility] Last Admin: 05/04/20 06:24 Dose: 5,000 unit Documented by: Meropenem 1 gm/ Dextrose 100 mls @ 0 mls/hr IVPB Q12H [facility] Last Admin: 05/04/20 02:37 Dose: 100 mls/hr Documented by: Sodium Chloride (Normal Saline -) 1,000 mls @ 50 mls/hr IV ASDIR [facility] Last Admin: 05/03/20 21:16 Dose: 50 mls/hr Documented by: Potassium Phosphate 15 mm/ (Sodium Chloride) 255 mls @ 63.75 mls/hr IVPB ONCE ONE Stop: 05/04/20 12:59 Metoprolol Succinate (Toprol Xl -) 25 mg PO DAILY [facility] Last Admin: 05/03/20 11:42 Dose: Not Given Documented by: Pantoprazole Sodium (Protonix Iv) 40 mg IVPUSH DAILY [facility] Last Admin: 05/03/20 11:42 Dose: 40 mg Documented by: - Objective Vital Signs: Vital Signs Temperature 98.8 F 05/04/20 06:00 Pulse Rate 56 L 05/04/20 06:00 Respiratory Rate 18 05/04/20 06:00 Blood Pressure 118/61 05/04/20 06:00 O2 Sat by Pulse Oximetry (%) 99 05/04/20 08:32 Constitutional: Yes: No Distress, Calm Neck: Yes: Supple Cardiovascular: Yes: Regular Rate and Rhythm Respiratory: Yes: Regular, Diminished, On Venti-Mask Gastrointestinal: Yes: Soft, Hypoactive Bowel Sounds Edema: No Labs: CBC, BMP 05/04/20 06:58 05/04/20 06:58 INR, PTT INR 0.99 (0.83-1.09) 05/02/20 03:55 - ....Imaging Chest X-ray: Report Reviewed (Left base ATX) X-ray: Report Reviewed (Improving SB distention) EKG: Report Reviewed (Tele: NSR) Problem List - Problems (1) Aspiration pneumonia Code(s): J69.0 - PNEUMONITIS DUE TO INHALATION OF FOOD AND VOMIT Qualifiers: Aspiration pneumonia type: due to vomit Laterality: left Lung location: unspecified part of lung Qualified Code(s): J69.0 - Pneumonitis due to inhalation of food and vomit (2) Demand ischemia Code(s): I24.8 - OTHER FORMS OF ACUTE ISCHEMIC HEART DISEASE (3) Hyperlipidemia Code(s): E78.5 - HYPERLIPIDEMIA, UNSPECIFIED Qualifiers: Hyperlipidemia type: pure hypercholesterolemia Qualified Code(s): E78.00 - Pure hypercholesterolemia, unspecified; E78.0 - Pure hypercholesterolemia (4) Hypertension Code(s): I10 - ESSENTIAL (PRIMARY) HYPERTENSION Qualifiers: Hypertension type: essential hypertension Qualified Code(s): I10 - Essential (primary) hypertension (5) Coronary artery disease Code(s): I25.10 - ATHSCL HEART DISEASE OF [place] CORONARY ARTERY W/O ANG PCTRS Qualifiers: Coronary Disease-Associated Artery/Lesion type: [place] artery [place] vs. transplanted heart: [place] heart Associated angina: without angina Qualified Code(s): I25.10 - Atherosclerotic heart disease of [place] coronary artery without angina pectoris (6) UDAY (acute kidney injury) Code(s): N17.9 - ACUTE KIDNEY FAILURE, UNSPECIFIED (7) Elevated troponin I level Code(s): R79.89 - OTHER SPECIFIED ABNORMAL FINDINGS OF BLOOD CHEMISTRY (8) Respiratory failure Code(s): J96.90 - RESPIRATORY FAILURE, UNSP, UNSP W HYPOXIA OR HYPERCAPNIA Qualifiers: Chronicity: acute Respiratory failure complication: hypoxia Qualified Code(s): J96.01 - Acute respiratory failure with hypoxia (9) Cerebrovascular accident (CVA) Code(s): I63.9 - CEREBRAL INFARCTION, UNSPECIFIED Qualifiers: CVA mechanism: occlusion Precerebral and cerebral artery: carotid artery Laterality of affected vessel: left Qualified Code(s): I63.232 - Cerebral infarction due to unspecified occlusion or stenosis of left carotid arteries Assessment/Plan 05/03/2020 Echo: Normal LV size and fxn, mild , mild-mod MR 1. Acute hypoxic respiratory failure suspect aspiration pneumonia 2. CAD with demand ischemia 3. Carotid stents 4. Pacemaker placement 5. 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 UDAY 7. Hypertension 8. Hyperlipidemia 9. BPH 10. Partial small bowel obstruction resolving PLAN: 1. Trend troponins peaked at 4.95 now trending down 2. Continue BIPAP, O2 as needed and empiric antibiotics. GI and DVT prophylaxis 3. Hold Lisinopril until renal function stabilizes 4. Continue Toprol XL 25 mg QD, Lipitor 80 mg QD and ASA 81 mg QD 5. Echocardiography report noted (normal LVEF 60-65%, mild to moderate MR, mild ) 6. ? Bowel rest except medication until stabilized 7. F/u chest CT and MBS
[2020-05-04] MEDS: PANTOPRAZOLE SODIUM 40 MG VIAL IVPUSH SCH (10:12)
[2020-05-04] MEDS: ASPIRIN 81 MG CHEWABLE TABLETS PO SCH (10:13)
[2020-05-04] MEDS: metoPROLOL SUCCINATE 25 MG TAB.SR.24H (FP) PO SCH (10:13)
[2020-05-04 10:43] LABS: ANISOCYTOSIS 0; MACROCYTOSIS 0; PLATELET ESTIMATE DECREASED
--- NOTE | 2020-05-04 11:45 | PN ---
Progress Note, Physician History of Present Illness: Pt seen and examined at bedside. He is more awake and interactive. He is off of bipap. - Current Medication List Current Medications: Active Medications Aspirin (Asa -) 81 mg PO DAILY [facility] Last Admin: 05/04/20 10:13 Dose: Not Given Documented by: Atorvastatin Calcium (Lipitor -) 80 mg PO HS [facility] Last Admin: 05/03/20 21:00 Dose: Not Given Documented by: Heparin Sodium (Porcine) (Heparin -) 5,000 unit SQ TID [facility] Last Admin: 05/04/20 06:24 Dose: 5,000 unit Documented by: Meropenem 1 gm/ Dextrose 100 mls @ 0 mls/hr IVPB Q12H [facility] Last Admin: 05/04/20 02:37 Dose: 100 mls/hr Documented by: Sodium Chloride (Normal Saline -) 1,000 mls @ 50 mls/hr IV ASDIR [facility] Last Admin: 05/03/20 21:16 Dose: 50 mls/hr Documented by: Potassium Phosphate 15 mm/ (Sodium Chloride) 255 mls @ 63.75 mls/hr IVPB ONCE ONE Stop: 05/04/20 12:59 Last Admin: 05/04/20 10:13 Dose: 63.75 mls/hr Documented by: Metoprolol Succinate (Toprol Xl -) 25 mg PO DAILY [facility] Last Admin: 05/04/20 10:13 Dose: Not Given Documented by: Pantoprazole Sodium (Protonix Iv) 40 mg IVPUSH DAILY [facility] Last Admin: 05/04/20 10:12 Dose: 40 mg Documented by: - Objective Vital Signs: Vital Signs Temperature 98.8 F 05/04/20 06:00 Pulse Rate 56 L 05/04/20 06:00 Respiratory Rate 18 05/04/20 06:00 Blood Pressure 118/61 05/04/20 06:00 O2 Sat by Pulse Oximetry (%) 99 05/04/20 08:32 Constitutional: Yes: Calm Eyes: Yes: Conjunctiva Clear HENT: Yes: Atraumatic Neck: Yes: Supple Cardiovascular: Yes: S1, S2 Respiratory: Yes: On Venti-Mask Gastrointestinal: Yes: Normal Bowel Sounds, Soft Genitourinary: Yes: Romo Present Musculoskeletal: Yes: WNL Edema: No Neurological: Yes: Oriented Psychiatric: Yes: Oriented Labs: CBC, BMP 05/04/20 06:58 05/04/20 06:58 INR, PTT INR 0.99 (0.83-1.09) 05/02/20 03:55 Problem List - Problems (1) UDAY (acute kidney injury) Code(s): N17.9 - ACUTE KIDNEY FAILURE, UNSPECIFIED (2) Aspiration pneumonia Code(s): J69.0 - PNEUMONITIS DUE TO INHALATION OF FOOD AND VOMIT Qualifiers: Aspiration pneumonia type: due to vomit Laterality: left Lung location: unspecified part of lung Qualified Code(s): J69.0 - Pneumonitis due to inhalation of food and vomit (3) Coronary artery disease Code(s): I25.10 - ATHSCL HEART DISEASE OF [place] CORONARY ARTERY W/O ANG PCTRS Qualifiers: Coronary Disease-Associated Artery/Lesion type: [place] artery [place] vs. transplanted heart: [place] heart Associated angina: without angina Qualified Code(s): I25.10 - Atherosclerotic heart disease of [place] coronary artery without angina pectoris Assessment/Plan Current Medications Generic Name Dose Route Start Last Admin Trade Name Freq PRN Reason Stop Dose Admin Aspirin 81 mg 05/03/20 10:00 05/04/20 10:13 Asa - PO Not Given DAILY [facility] Atorvastatin Calcium 80 mg 05/02/20 22:00 05/03/20 21:00 Lipitor - PO Not Given HS [facility] Heparin Sodium (Porcine) 5,000 unit 05/02/20 14:00 05/04/20 06:24 Heparin - SQ 5,000 unit TID [facility] Administration Meropenem 1 gm/ Dextrose 100 mls @ 0 mls/hr 05/02/20 15:30 05/04/20 02:37 IVPB 100 mls/hr Q12H [facility] Administration As Directed Sodium Chloride 1,000 mls @ 50 mls/hr 05/03/20 16:30 05/03/20 21:16 Normal Saline - IV 50 mls/hr ASDIR [facility] Administration Potassium Phosphate 15 mm/ 255 mls @ 63.75 mls/hr 05/04/20 09:00 05/04/20 10:13 Sodium Chloride IVPB 05/04/20 12:59 63.75 mls/hr ONCE ONE Administration Metoprolol Succinate 25 mg 05/03/20 10:00 05/04/20 10:13 Toprol Xl - PO Not Given DAILY [facility] Pantoprazole Sodium 40 mg 05/02/20 14:15 05/04/20 10:12 Protonix Iv IVPUSH 40 mg DAILY [facility] Administration Impression 1. UDAY 2. resp failure requiring bipap 3. cad with hx of stents 4. elevated ldh 5. hx htn 6. vomiting 7. aspiration PNA 8. bph 9. hld Plan - renal function improved - can stop fluids - repeat labs in am - replace phos - renal ultrasound reviewed - monitor volume status - follow cultures
[2020-05-04] MEDS ORDERED: DEXTROSE 5%-0.45% SALINE 1,000 ML IV SCH (12:00)
--- NOTE | 2020-05-04 12:53 | PN ---
Progress Note, XRAY TECH - Note Progress Note: Selected Entries 05/03/20 05/03/20 05/03/20 00:13 00:50 01:02 Breakfast Temperature Pulse Rate Blood Pressure O2 Sat by Pulse 99 99 Oximetry (%) Oxygen Delivery Bi-pap Method Fraction of 50 50 Inspired Oxygen (FIO2) 05/03/20 05/03/20 05/03/20 04:25 05:32 09:00 Breakfast Temperature Pulse Rate Blood Pressure O2 Sat by Pulse 98 95 100 Oximetry (%) Oxygen Delivery Bi-pap Method Fraction of 50 50 Inspired Oxygen (FIO2) 05/03/20 05/03/20 05/03/20 10:00 18:00 21:00 Breakfast Temperature Pulse Rate Blood Pressure O2 Sat by Pulse 100 100 100 Oximetry (%) Oxygen Delivery Bi-pap Method Fraction of 50 Inspired Oxygen (FIO2) 05/03/20 05/04/20 05/04/20 22:20 00:12 01:47 Breakfast Temperature 101.1 F H Pulse Rate 90 Blood Pressure 139/96 O2 Sat by Pulse 97 97 98 Oximetry (%) Oxygen Delivery Method Fraction of 50 50 Inspired Oxygen (FIO2) 05/04/20 05/04/20 05/04/20 04:22 06:00 08:32 Breakfast Temperature 98.8 F Pulse Rate 56 L Blood Pressure 118/61 O2 Sat by Pulse 97 98 99 Oximetry (%) Oxygen Delivery Method Fraction of 50 50 Inspired Oxygen (FIO2) 05/04/20 09:46 Breakfast NPO Temperature Pulse Rate Blood Pressure O2 Sat by Pulse Oximetry (%) Oxygen Delivery Method Fraction of Inspired Oxygen (FIO2) Laboratory Tests 05/02/20 05/03/20 05/04/20 04:09 06:10 06:58 WBC 10.0 12.3 H 11.6 H Confused, knows he is in the hospital and , however thinks he is 25 yo, 1973. Looking better, on NRB, verbal, good vocal quality, fairly brisk swallow with trial of applesauce and single sips of water. Suggest MBS, if medically stable, to further assess swallowing function, r/o stasis and aspiration, to intiate PO diet safely.
--- NOTE | 2020-05-04 13:02 | CONS ---
DATE OF CONSULTATION: 05/04/2020 REASON FOR CONSULTATION: Small-bowel obstruction. BRIEF HISTORY: This is a 74-year-old male who was admitted to [facility]. He developed respiratory failure, is currently on a BiPAP device. He had an episode of vomiting for which he had a chest x-ray that suggested some dilated loops of bowel. He had an abdominal x-ray that also suggested the possibility of a small-bowel obstruction even though he has a virgin abdomen. He was considered not a candidate for CAT scan because of his respiratory difficulty and the fact that he is currently on a respiratory mask and not intubated and, therefore, no CAT scan has been done and no nasogastric tube was placed. A request was made for surgical evaluation for possible laparotomy for possible bowel obstruction without imaging to confirm. Patient was seen and examined this morning. However, due to persistent computer problems at [facility], I was unable to place my consultation into the computer system or completely browse all laboratory data and, therefore, I am dictating through the phone service. PAST MEDICAL HISTORY: Significant for stroke, hypertension, peripheral vascular disease. SOCIAL HISTORY: Unobtainable. The patient is a poor historian. PAST SURGICAL HISTORY: Negative for abdominal surgery. HOME MEDICATIONS: Include lisinopril, metoprolol, clozapine, aspirin, Lipitor, Flomax. REVIEW OF SYSTEMS: General: Patient admits to fatigue. Cardiac: Denies chest pain. Respiratory: Admits to shortness of breath. He is currently wearing a respiratory mask. Genitourinary: Denies dysuria. Musculoskeletal: Denies joint pain. Gastrointestinal: Admits to vomiting 2 times. States he currently has no abdominal pain. He states that he is passing some gas, but has not had a bowel movement. PHYSICAL EXAMINATION: General: This is an obese 74-year-old male with respiratory difficulty. Vital Signs: He is currently afebrile with a T-max at 101.1 which is presumed from his pneumonia. HEENT: His head is normocephalic. His sclerae are anicteric. Neck: Supple. Chest: Distant breath sounds. Abdomen: Soft. It is nontender. It is minimally distended. There are no surgical scars. There is no obvious hernia. Extremities: Trace edema. REVIEW OF LABORATORIES: White blood cell count is elevated at 11,000. His D-dimer is elevated at over 3000. His chemistries show an albumin of 2.5. An initial lactic acidosis has resolved. He is COVID negative. ASSESSMENT: This is a 74-year-old male who was admitted for pneumonia, respiratory failure. He has currently not been intubated or sent to the intensive care unit. He is currently on an oxygen mask at 50%, having difficulty breathing. He has had an abdominal x-ray that suggests the possibility of a mechanical bowel obstruction. However, the patient has never had abdominal surgery which would make adhesive obstruction unlikely. Other causes of obstruction would be cancer, inflammatory bowel disease or possibly even appendicitis. Without a CAT scan this cannot be determined. Patient is not a candidate for CAT scan at the moment as he is felt to be too unstable to go down because of his respiratory status. He is also not a candidate for nasogastric tube decompression because it would break the seal on his mask. Again, unless the patient is intubated, further workup will not be able to be done. If the patient is not a candidate for CAT scan or nasogastric tube, then he also by that logic would not be a candidate for surgery and would not recommend exploratory surgery as his workup. If the patient does get a CAT scan with oral contrast and a nasogastric tube is placed in order to give this, please reconsult to review findings. If there is a bowel obstruction or other surgical pathology noted, I will be available to give input and operate if he is a candidate for surgery. Currently he has no evidence of bowel compromise on his abdominal exam. His major problems appear to be respiratory in nature. Although it is entirely possible that he has an aspiration pneumonia from vomiting from bowel obstruction, this has not been determined and an abdominal x-ray in this setting is not a sufficient workup. DO SHERI CAMPOS/[id number]
--- NOTE | 2020-05-04 13:10 | PN ---
Teaching Attending Note Name of Resident: Melissa Henao ATTENDING PHYSICIAN STATEMENT I saw and evaluated the patient. I reviewed the resident's note and discussed the case with the resident. I agree with the resident's findings and plan as documented. SUBJECTIVE: pt seen and examined, more alert today, thirsty OBJECTIVE: Last Vital Signs Temp Pulse Resp BP Pulse Ox 98.8 F 56 L 18 118/61 99 05/04/20 06:00 05/04/20 06:00 05/04/20 06:00 05/04/20 06:00 05/04/20 08:32 GENERAL: Awake, alert, and oriented x2, in no acute distress. HEENT: AT/NC, not p/c/j, EMOI LUNGS: Breath sounds equal, bibasilar crackles. No accessory muscle use. HEART: Regular rate and rhythm, normal S1 and S2 ABDOMEN: Soft, nontender, not distended MUSCULOSKELETAL: Normal range of motion at all joints. No bony deformities or tenderness. No CVA tenderness. UPPER EXTREMITIES: 2+ pulses, warm, well-perfused. No cyanosis. No clubbing. No peripheral edema. LOWER EXTREMITIES: 2+ pulses, warm, well-perfused. No calf tenderness. No peripheral edema. NEUROLOGICAL: Cranial nerves II-XII intact. Normal speech. CBCD WBC 11.6 K/mm3 (4.0-10.0) H 05/04/20 06:58 RBC 3.67 M/mm3 (4.00-5.60) L 05/04/20 06:58 Hgb 11.7 GM/dL (11.7-16.9) 05/04/20 06:58 Hct 34.6 % (35.4-49) L 05/04/20 06:58 MCV 94.3 fl (80-96) 05/04/20 06:58 MCHC 33.8 g/dl (32.0-35.9) 05/04/20 06:58 RDW 13.5 % (11.9-15.9) 05/04/20 06:58 Plt Count 96 K/MM3 (134-434) L 05/04/20 06:58 MPV 13.0 fl (7.5-11.1) H 05/04/20 06:58 CMP Sodium 139 mmol/L (136-145) 05/04/20 06:58 Potassium 4.2 mmol/L (3.5-5.1) 05/04/20 06:58 Chloride 109 mmol/L (98-107) H 05/04/20 06:58 Carbon Dioxide 21 mmol/L (21-32) 05/04/20 06:58 Anion Gap 9 MMOL/L (8-16) 05/04/20 06:58 BUN 31.3 mg/dL (7-18) H 05/04/20 06:58 Creatinine 1.2 mg/dL (0.55-1.3) 05/04/20 06:58 Calcium 7.9 mg/dL (8.5-10.1) L 05/04/20 06:58 Total Bilirubin 0.8 mg/dL (0.2-1) 05/04/20 06:58 AST 77 U/L (15-37) H 05/04/20 06:58 ALT 36 U/L (13-61) 05/04/20 06:58 Alkaline Phosphatase 72 U/L (45-117) 05/04/20 06:58 Total Protein 5.3 g/dl (6.4-8.2) L 05/04/20 06:58 Albumin 2.5 g/dl (3.4-5.0) L 05/04/20 06:58 Active Medications Aspirin (Asa -) 81 mg PO DAILY [facility] Last Admin: 05/04/20 10:13 Dose: Not Given Documented by: Atorvastatin Calcium (Lipitor -) 80 mg PO HS [facility] Last Admin: 05/03/20 21:00 Dose: Not Given Documented by: Heparin Sodium (Porcine) (Heparin -) 5,000 unit SQ TID [facility] Last Admin: 05/04/20 06:24 Dose: 5,000 unit Documented by: Meropenem 1 gm/ Dextrose 100 mls @ 0 mls/hr IVPB Q12H [facility] Last Admin: 05/04/20 02:37 Dose: 100 mls/hr Documented by: Dextrose/Sodium Chloride (D5-1/2ns -) 1,000 mls @ 42 mls/hr IV ASDIR [facility] Metoprolol Succinate (Toprol Xl -) 25 mg PO DAILY [facility] Last Admin: 05/04/20 10:13 Dose: Not Given Documented by: Pantoprazole Sodium (Protonix Iv) 40 mg IVPUSH DAILY [facility] Last Admin: 05/04/20 10:12 Dose: 40 mg Documented by: ASSESSMENT AND PLAN: Pt is a 74 year old male with PMHx of HTN, HLD, carotid stents, pacemaker placement, 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 On restraints due to combative. #Acute respiratory failure 2/2 to pneumonia likely aspiration episode of vomiting (trigger is unknown) On non rebreather, sat >96% more alert had episode of fever overnight, sepsis work up done continue on meropenem repeat XR noted WBC trended down NPO pending mod. barium aspiration precautions, fall precautions replete electrolytes PRN speech and swallow Pulmonary consult appreciated Nephrology consult appreciated case discussed with consults #Elevated troponin Downtrending, demand ischemia EKG showing paced rhythm, denies CP ECHO showing LVH with EF 55-60% assistant in nursing on board recommendations appreciated UDAY SBO ( improving on repeated KUB, still no BM, GI consult appreciated) HTN HLD BPH Heparin 5000u TID (monitor platelets)
--- NOTE | 2020-05-04 18:28 | PN ---
Physical Exam: SUBJECTIVE: Patient seen and examined OBJECTIVE: Vital Signs Period Temp Pulse Resp BP Sys/Su Pulse Ox Last 24 Hr 97.0 F-101.1 F 56-99 18-20 118-156/61-96 97-100 GENERAL: The patient is awake, alert, and fully oriented, in no acute distress. HEAD: Normal with no signs of trauma. EYES: PERRL, extraocular movements intact, sclera anicteric, conjunctiva clear. No ptosis. ENT: Ears normal, nares patent, oropharynx clear without exudates, moist mucous membranes. NECK: Trachea midline, full range of motion, supple. LUNGS: Breath sounds equal, clear to auscultation bilaterally, no wheezes, no crackles, no accessory muscle use. On NRB, downgraded from BiPAP. HEART: Regular rate and rhythm, S1, S2 without murmur, rub or gallop. ABDOMEN: Soft, nontender, nondistended, normoactive bowel sounds, no guarding, no rebound, no hepatosplenomegaly, no masses. EXTREMITIES: 2+ pulses, warm, well-perfused, no edema. NEUROLOGICAL: Cranial nerves II through XII grossly intact. Normal speech, gait not observed. PSYCH: Normal mood, normal affect. SKIN: Warm, dry, normal turgor, no rashes or lesions noted Laboratory Results - last 24 hr 05/04/20 05/04/20 05/04/20 03:19 06:58 06:58 WBC 11.6 H RBC 3.67 L Hgb 11.7 Hct 34.6 L MCV 94.3 MCH 31.9 MCHC 33.8 RDW 13.5 Plt Count 96 L MPV 13.0 H Absolute Neuts (auto) 10.1 H Neutrophils % 87.3 H Neutrophils % (Manual) 81.3 Band Neutrophils % 3.3 Lymphocytes % 8.5 D Lymphocytes % (Manual) 12.1 D Monocytes % 3.7 L Monocytes % (Manual) 3 L D Eosinophils % 0.1 D Eosinophils % (Manual) 0.0 Basophils % 0.4 Basophils % (Manual) 0.0 Myelocytes % (Man) 0 D Promyelocytes % (Man) 0 Blast Cells % (Manual) 0 Nucleated RBC % 0 Metamyelocytes 0 D Hypochromia 0 Platelet Estimate Decreased Polychromasia 0 Poikilocytosis 0 Anisocytosis 0 Microcytosis 0 Macrocytosis 0 Sodium Potassium Chloride Carbon Dioxide Anion Gap BUN Creatinine Est GFR (CKD-EPI)AfAm Est GFR (CKD-EPI)NonAf Random Glucose Lactic Acid 0.8 Calcium Phosphorus Magnesium Total Bilirubin AST ALT Alkaline Phosphatase Total Protein Albumin Urine Color Yellow Urine Appearance Clear Urine pH 5.0 Ur Specific [place] 1.022 Urine Protein 2+ H Urine Glucose (UA) Negative Urine Ketones 2+ H Urine Blood 3+ H Urine Nitrite Negative Urine Bilirubin Negative Urine Urobilinogen 0.2 Ur Leukocyte Esterase Negative Urine WBC (Auto) 21 Urine RBC (Auto) 798 Urine Casts (Auto) 2 U Epithel Cells (Auto) 8 Urine Bacteria (Auto) 11 05/04/20 06:58 WBC RBC Hgb Hct MCV MCH MCHC RDW Plt Count MPV Absolute Neuts (auto) Neutrophils % Neutrophils % (Manual) Band Neutrophils % Lymphocytes % Lymphocytes % (Manual) Monocytes % Monocytes % (Manual) Eosinophils % Eosinophils % (Manual) Basophils % Basophils % (Manual) Myelocytes % (Man) Promyelocytes % (Man) Blast Cells % (Manual) Nucleated RBC % Metamyelocytes Hypochromia Platelet Estimate Polychromasia Poikilocytosis Anisocytosis Microcytosis Macrocytosis Sodium 139 Potassium 4.2 Chloride 109 H Carbon Dioxide 21 Anion Gap 9 BUN 31.3 H Creatinine 1.2 Est GFR (CKD-EPI)AfAm 69.11 Est GFR (CKD-EPI)NonAf 59.63 Random Glucose 78 Lactic Acid Calcium 7.9 L Phosphorus 2.2 L Magnesium 2.3 Total Bilirubin 0.8 AST 77 H ALT 36 Alkaline Phosphatase 72 Total Protein 5.3 L Albumin 2.5 L Urine Color Urine Appearance Urine pH Ur Specific [place] Urine Protein Urine Glucose (UA) Urine Ketones Urine Blood Urine Nitrite Urine Bilirubin Urine Urobilinogen Ur Leukocyte Esterase Urine WBC (Auto) Urine RBC (Auto) Urine Casts (Auto) U Epithel Cells (Auto) Urine Bacteria (Auto) Active Medications Generic Name Dose Route Start Last Admin Trade Name Freq PRN Reason Stop Dose Admin Aspirin 81 mg 05/03/20 10:00 05/04/20 10:13 Asa - PO Not Given DAILY [facility] Atorvastatin Calcium 80 mg 05/02/20 22:00 05/03/20 21:00 Lipitor - PO Not Given HS [facility] Heparin Sodium (Porcine) 5,000 unit 05/02/20 14:00 05/04/20 15:04 Heparin - SQ 5,000 unit TID [facility] Administration Meropenem 1 gm/ Dextrose 100 mls @ 0 mls/hr 05/02/20 15:30 05/04/20 15:04 IVPB 100 mls/hr Q12H [facility] Administration As Directed Dextrose/Sodium Chloride 1,000 mls @ 42 mls/hr 05/04/20 12:00 05/04/20 15:04 D5-1/2ns - IV 42 mls/hr ASDIR [facility] Administration Metoprolol Succinate 25 mg 05/03/20 10:00 05/04/20 10:13 Toprol Xl - PO Not Given DAILY [facility] Pantoprazole Sodium 40 mg 05/02/20 14:15 05/04/20 10:12 Protonix Iv IVPUSH 40 mg DAILY [facility] Administration ASSESSMENT/PLAN: Pt is a 74 year old male with PMHx of HTN, HLD, carotid stents, pacemaker placement, 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 On restraints due to combative. #Acute respiratory failure 2/2 to pneumonia likely aspiration -Downgraded to NRB from BiPAP, tolerating well; monitor sats overnight -On meropenem; ID consulted -No leukocytosis, afebrile -NPO for aspiration risk; speech and swallow --> MBS evaluation; recs dysphagia ground diet, thin liquid -chest CT 05/04 --> extensive consolidation/atelectasis within both LL, LLL>RLL; possible developing pneumonia JENN; trace pericardial effusion and mild mediastinal lymphadenopathy #UDAY resolved -Cr resolved, 2.6 --> 1.7 --> 1.2 -D5 1/2NS at 42cc/hr #SBO -abdominal x-ray showing SBO -consulted surg per GI rec -repeat ab x-ray 05/04 showing distal small bowel and colom air distended, but no obstruction; no free air #Elevated troponin -Downtrending, latest 3.18 -No EKG changes, asymptomatic -Per cardio, no need for heparin or intervention -Likely secondary to UDAY or infectious state #Hx of HTN -Continue metoprolol -Held lisinopril due to UDAY #Hx of HLD -Continue lipitor #Hx of BPH -Continue flomax FEN -D51/2NS 42cc/hr -Monitor electrolytes -Dysphagia diet PPx Heparin 5000u TID Dispo Admitted to tele. On NRB. On meropenem. Visit type - Emergency Visit Emergency Visit: Yes ED Registration Date: 05/02/20 Care time: The patient presented to the Emergency Department on the above date and was hospitalized for further evaluation of their emergent condition. - New Patient This patient is new to me today: No - Critical Care Critical Care patient: No - Medication Review Med list reviewed for High Risk Meds patients 65 and older: Yes ATTENDING PHYSICIAN STATEMENT I saw and evaluated the patient. I reviewed the resident's note and discussed the case with the resident. I agree with the resident's findings and plan as documented. SUBJECTIVE: OBJECTIVE: ASSESSMENT AND PLAN:
[2020-05-04] MEDS: ATORVASTATIN CA 80 MG TABLET (FP) PO SCH (21:14)
[2020-05-05] MEDS ORDERED: MEROPENEM 1 GM VIAL (RESTRICTED TO ID) IVPB ONE ×2 (02:42→14:16)
[2020-05-05] MEDS ORDERED: DEXTROSE 5%-WATER 100 ML IVPB ONE ×2 (02:42→14:16)
[2020-05-05] MEDS: MEROPENEM 1 GM in DEXTROSE 5%-WATER 100 ML IVPB SCH ×2 (02:46→15:17)
[2020-05-05] MEDS: HEPARIN NA (PORCINE) 5,000 UNITS/ML 1ML VIAL SQ SCH ×3 (06:07→21:59)
[2020-05-05 07:44] LABS: HEMATOCRIT 36.5 % (35.4-49); MCH 30.3 pg (25.7-33.7); MCHC 32.7 g/dl (32.0-35.9); MEAN CELL VOLUME 92.6 fl (80-96); MEAN PLT VOLUME 12.2 fl (7.5-11.1); PLATELET COUNT 111 K/MM3 (134-434); RBC 3.94 M/mm3 (4.00-5.60); RDW 13.7 % (11.9-15.9); WHITE BLOOD COUNT 14.3 K/mm3 (4.0-10.0)
[2020-05-05 08:11] LABS: BLOOD UREA NITROGEN 21.2 mg/dL (7-18); MAGNESIUM 2.1 mg/dL (1.8-2.4); PHOSPHOROUS 1.6 mg/dL (2.5-4.9); POTASSIUM 3.8 mmol/L (3.5-5.1)
[2020-05-05] MEDS: ASPIRIN 81 MG CHEWABLE TABLETS PO SCH (09:05)
[2020-05-05] MEDS: metoPROLOL SUCCINATE 25 MG TAB.SR.24H (FP) PO SCH (09:05)
[2020-05-05] MEDS: PANTOPRAZOLE SODIUM 40 MG VIAL IVPUSH SCH (09:05)
--- NOTE | 2020-05-05 09:12 | PN ---
Progress Note, Physician History of Present Illness: More responsive remains off bipap on VM. - Current Medication List Current Medications: Active Medications Aspirin (Asa -) 81 mg PO DAILY [facility] Last Admin: 05/05/20 09:05 Dose: 81 mg Documented by: Atorvastatin Calcium (Lipitor -) 80 mg PO HS [facility] Last Admin: 05/04/20 21:14 Dose: 80 mg Documented by: Heparin Sodium (Porcine) (Heparin -) 5,000 unit SQ TID [facility] Last Admin: 05/05/20 06:07 Dose: 5,000 unit Documented by: Meropenem 1 gm/ Dextrose 100 mls @ 0 mls/hr IVPB Q12H [facility] Last Admin: 05/05/20 02:46 Dose: 100 mls/hr Documented by: Metoprolol Succinate (Toprol Xl -) 25 mg PO DAILY [facility] Last Admin: 05/05/20 09:05 Dose: 25 mg Documented by: Pantoprazole Sodium (Protonix Iv) 40 mg IVPUSH DAILY [facility] Last Admin: 05/05/20 09:05 Dose: 40 mg Documented by: - Objective Vital Signs: Vital Signs Temperature 99.9 F H 05/05/20 05:00 Pulse Rate 91 H 05/05/20 05:00 Respiratory Rate 18 05/05/20 05:00 Blood Pressure 139/78 05/05/20 05:00 O2 Sat by Pulse Oximetry (%) 97 05/05/20 07:52 Constitutional: Yes: No Distress, Calm, Thin Neck: Yes: Supple Cardiovascular: Yes: Regular Rate and Rhythm Respiratory: Yes: Diminished, On Venti-Mask Gastrointestinal: Yes: Soft, Hypoactive Bowel Sounds Edema: No Labs: CBC, BMP 05/05/20 07:06 05/05/20 07:06 INR, PTT INR 0.99 (0.83-1.09) 05/02/20 03:55 - ....Imaging EKG: Report Reviewed (Tele: v-paced) Problem List - Problems (1) Aspiration pneumonia Code(s): J69.0 - PNEUMONITIS DUE TO INHALATION OF FOOD AND VOMIT Qualifiers: Aspiration pneumonia type: due to vomit Laterality: left Lung location: unspecified part of lung Qualified Code(s): J69.0 - Pneumonitis due to inhalation of food and vomit (2) Demand ischemia Code(s): I24.8 - OTHER FORMS OF ACUTE ISCHEMIC HEART DISEASE (3) Hyperlipidemia Code(s): E78.5 - HYPERLIPIDEMIA, UNSPECIFIED Qualifiers: Hyperlipidemia type: pure hypercholesterolemia Qualified Code(s): E78.00 - Pure hypercholesterolemia, unspecified; E78.0 - Pure hypercholesterolemia (4) Hypertension Code(s): I10 - ESSENTIAL (PRIMARY) HYPERTENSION Qualifiers: Hypertension type: essential hypertension Qualified Code(s): I10 - Essential (primary) hypertension (5) Coronary artery disease Code(s): I25.10 - ATHSCL HEART DISEASE OF [place] CORONARY ARTERY W/O ANG PCTRS Qualifiers: Coronary Disease-Associated Artery/Lesion type: [place] artery [place] vs. transplanted heart: [place] heart Associated angina: without angina Qualified Code(s): I25.10 - Atherosclerotic heart disease of [place] coronary artery without angina pectoris (6) UDAY (acute kidney injury) Code(s): N17.9 - ACUTE KIDNEY FAILURE, UNSPECIFIED (7) Elevated troponin I level Code(s): R79.89 - OTHER SPECIFIED ABNORMAL FINDINGS OF BLOOD CHEMISTRY (8) Respiratory failure Code(s): J96.90 - RESPIRATORY FAILURE, UNSP, UNSP W HYPOXIA OR HYPERCAPNIA Qualifiers: Chronicity: acute Respiratory failure complication: hypoxia Qualified Code(s): J96.01 - Acute respiratory failure with hypoxia (9) Cerebrovascular accident (CVA) Code(s): I63.9 - CEREBRAL INFARCTION, UNSPECIFIED Qualifiers: CVA mechanism: occlusion Precerebral and cerebral artery: carotid artery Laterality of affected vessel: left Qualified Code(s): I63.232 - Cerebral infarction due to unspecified occlusion or stenosis of left carotid arteries Assessment/Plan 05/03/2020 Echo: Normal LV size and fxn, mild , mild-mod MR 05/04/[address]: L>R lower lobe consolidation, possible JENN PNA 1. Acute hypoxic respiratory failure suspect aspiration pneumonia 2. CAD with demand ischemia 3. Carotid stents 4. Pacemaker placement 5. 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 UDAY 7. Hypertension 8. Hyperlipidemia 9. BPH 10. Partial small bowel obstruction resolving PLAN: 1. Trend troponins peaked at 4.95 now trending down 2. Continue BIPAP, O2 as needed and empiric antibiotics. GI and DVT prophylaxis 3. Hold Lisinopril until renal function stabilizes 4. Continue Toprol XL 25 mg QD, Lipitor 80 mg QD and ASA 81 mg QD 5. Echocardiography report noted (normal LVEF 60-65%, mild to moderate MR, mild ) 6. Dysphagia diet as tolerated
--- NOTE | 2020-05-05 10:21 | PN ---
Progress Note, TRAINING PROFESSIONAL - Note Progress Note: Selected Entries 05/04/20 05/04/20 05/04/20 01:47 06:00 09:00 Lunch Supper Temperature 101.1 F H 98.8 F Pulse Rate 90 56 L Respiratory 20 18 Rate Respiratory Normal Depth Respiratory Non-Labored Effort Blood Pressure 139/96 118/61 O2 Sat by Pulse Oximetry (%) Oxygen Delivery Method 05/04/20 05/04/20 05/04/20 10:00 13:39 17:00 Lunch NPO Supper Temperature 97.0 F L 98.3 F 98.1 F Pulse Rate 78 71 Respiratory 18 20 18 Rate Respiratory Depth Respiratory Effort Blood Pressure 135/72 137/83 145/95 O2 Sat by Pulse Oximetry (%) Oxygen Delivery Method 05/04/20 05/04/20 05/05/20 21:00 23:00 01:00 Lunch Supper 50% Temperature 99.1 F 97 F L Pulse Rate 88 92 H Respiratory 18 18 Rate Respiratory Normal Depth Respiratory Non-Labored Effort Blood Pressure 144/90 150/81 O2 Sat by Pulse 100 Oximetry (%) Oxygen Delivery Method 05/05/20 05/05/20 05/05/20 04:30 05:00 06:49 Lunch Supper Temperature 99.9 F H Pulse Rate 91 H Respiratory 18 Rate Respiratory Depth Respiratory Effort Blood Pressure 139/78 O2 Sat by Pulse 100 98 99 Oximetry (%) Oxygen Delivery Non-Rebreather Method Mask 05/05/20 07:52 Lunch Supper Temperature Pulse Rate Respiratory Rate Respiratory Depth Respiratory Effort Blood Pressure O2 Sat by Pulse 97 Oximetry (%) Oxygen Delivery Method Laboratory Tests 05/03/20 05/04/20 05/05/20 06:10 06:58 07:06 WBC 12.3 H 11.6 H 14.3 H Selected Entries 05/05/20 05/05/20 11:38 13:11 Breakfast 75% Diet Tolerated Well Fair Lunch 50% MBS completed. Dys ground/thin liquids ordered. Monitor PO tolerance, congestion, fever.
[2020-05-05] MEDS ORDERED: POTASSIUM PHOSPHATE 15 MM in SODIUM CHLORIDE 250 ML IVPB ONE ×2 (11:00→17:30)
--- NOTE | 2020-05-05 14:08 | PN ---
Progress Note, Physician History of Present Illness: awake and alert stable no new issues breathing well - Current Medication List Current Medications: Active Medications Aspirin (Asa -) 81 mg PO DAILY [facility] Last Admin: 05/05/20 09:05 Dose: 81 mg Documented by: Atorvastatin Calcium (Lipitor -) 80 mg PO HS [facility] Last Admin: 05/04/20 21:14 Dose: 80 mg Documented by: Heparin Sodium (Porcine) (Heparin -) 5,000 unit SQ TID [facility] Last Admin: 05/05/20 13:43 Dose: 5,000 unit Documented by: Meropenem 1 gm/ Dextrose 100 mls @ 0 mls/hr IVPB Q12H [facility] Last Admin: 05/05/20 02:46 Dose: 100 mls/hr Documented by: Potassium Phosphate 15 mm/ (Sodium Chloride) 255 mls @ 62.5 mls/hr IVPB ONCE ONE Stop: 05/05/20 15:04 Last Admin: 05/05/20 12:40 Dose: 62.5 mls/hr Documented by: Metoprolol Succinate (Toprol Xl -) 25 mg PO DAILY [facility] Last Admin: 05/05/20 09:05 Dose: 25 mg Documented by: Olanzapine (Zyprexa -) 5 mg PO [facility] Pantoprazole Sodium (Protonix Iv) 40 mg IVPUSH DAILY [facility] Last Admin: 05/05/20 09:05 Dose: 40 mg Documented by: - Objective Vital Signs: Vital Signs Temperature 97 F L 05/05/20 13:20 Pulse Rate 55 L 05/05/20 13:20 Respiratory Rate 20 05/05/20 13:20 Blood Pressure 119/87 05/05/20 13:20 O2 Sat by Pulse Oximetry (%) 97 05/05/20 09:00 Constitutional: Yes: No Distress, Calm Cardiovascular: Yes: S1, S2 Respiratory: Yes: Regular, On Nasal O2, Poor Air Entry Gastrointestinal: Yes: Normal Bowel Sounds, Soft Musculoskeletal: Yes: WNL Extremities: Yes: WNL Neurological: Yes: Alert, Oriented Psychiatric: Yes: Alert, Oriented Labs: CBC, BMP 05/05/20 07:06 05/05/20 07:06 INR, PTT INR 0.99 (0.83-1.09) 05/02/20 03:55 Assessment/Plan Problem List - Problems (1) UDAY (acute kidney injury) Code(s): N17.9 - ACUTE KIDNEY FAILURE, UNSPECIFIED (2) Aspiration pneumonia Code(s): J69.0 - PNEUMONITIS DUE TO INHALATION OF FOOD AND VOMIT Qualifiers: Aspiration pneumonia type: due to vomit Laterality: left Lung location: unspecified part of lung Qualified Code(s): J69.0 - Pneumonitis due to inhalation of food and vomit (3) Coronary artery disease Code(s): I25.10 - ATHSCL HEART DISEASE OF [place] CORONARY ARTERY W/O ANG PCTRS Qualifiers: Coronary Disease-Associated Artery/Lesion type: [place] artery [place] vs. transplanted heart: [place] heart Associated angina: without angina Qualified Code(s): I25.10 - Atherosclerotic heart disease of [place] coronary artery without angina pectoris Impression 1. UDAY 2. resp failure requiring bipap 3. cad with hx of stents 4. elevated ldh 5. hx htn 6. vomiting 7. aspiration PNA 8. bph 9. hld plan continue abx resp support cx reports pending rest as per the team
--- NOTE | 2020-05-05 14:09 | PN ---
Progress Note, Physician History of Present Illness: more awake and alert continues to need venti mask - Current Medication List Current Medications: Active Medications Aspirin (Asa -) 81 mg PO DAILY [facility] Last Admin: 05/05/20 09:05 Dose: 81 mg Documented by: Atorvastatin Calcium (Lipitor -) 80 mg PO HS [facility] Last Admin: 05/04/20 21:14 Dose: 80 mg Documented by: Heparin Sodium (Porcine) (Heparin -) 5,000 unit SQ TID [facility] Last Admin: 05/05/20 13:43 Dose: 5,000 unit Documented by: Meropenem 1 gm/ Dextrose 100 mls @ 0 mls/hr IVPB Q12H [facility] Last Admin: 05/05/20 02:46 Dose: 100 mls/hr Documented by: Potassium Phosphate 15 mm/ (Sodium Chloride) 255 mls @ 62.5 mls/hr IVPB ONCE ONE Stop: 05/05/20 15:04 Last Admin: 05/05/20 12:40 Dose: 62.5 mls/hr Documented by: Metoprolol Succinate (Toprol Xl -) 25 mg PO DAILY [facility] Last Admin: 05/05/20 09:05 Dose: 25 mg Documented by: Olanzapine (Zyprexa -) 5 mg PO [facility] Pantoprazole Sodium (Protonix Iv) 40 mg IVPUSH DAILY [facility] Last Admin: 05/05/20 09:05 Dose: 40 mg Documented by: - Objective Vital Signs: Vital Signs Temperature 97 F L 05/05/20 13:20 Pulse Rate 55 L 05/05/20 13:20 Respiratory Rate 20 05/05/20 13:20 Blood Pressure 119/87 05/05/20 13:20 O2 Sat by Pulse Oximetry (%) 97 05/05/20 09:00 Constitutional: Yes: No Distress, Calm Cardiovascular: Yes: S1, S2 Respiratory: Yes: Regular, Poor Air Entry, Other (on vm) Gastrointestinal: Yes: Normal Bowel Sounds, Soft Musculoskeletal: Yes: WNL Extremities: Yes: WNL Neurological: Yes: Alert, Oriented Psychiatric: Yes: Alert, Oriented Labs: CBC, BMP 05/05/20 07:06 05/05/20 07:06 INR, PTT INR 0.99 (0.83-1.09) 05/02/20 03:55 Assessment/Plan Problem List - Problems (1) UADY (acute kidney injury) Code(s): N17.9 - ACUTE KIDNEY FAILURE, UNSPECIFIED (2) Aspiration pneumonia Code(s): J69.0 - PNEUMONITIS DUE TO INHALATION OF FOOD AND VOMIT Qualifiers: Aspiration pneumonia type: due to vomit Laterality: left Lung location: unspecified part of lung Qualified Code(s): J69.0 - Pneumonitis due to inhalation of food and vomit (3) Coronary artery disease Code(s): I25.10 - ATHSCL HEART DISEASE OF [place] CORONARY ARTERY W/O ANG PCTRS Qualifiers: Coronary Disease-Associated Artery/Lesion type: [place] artery [place] vs. transplanted heart: [place] heart Associated angina: without angina Qualified Code(s): I25.10 - Atherosclerotic heart disease of [place] coronary artery without angina pectoris Impression 1. UDAY 2. resp failure requiring bipap 3. cad with hx of stents 4. elevated ldh 5. hx htn 6. vomiting 7. aspiration PNA 8. bph 9. hld plan continue abx resp support asp precautions rest as per the team
--- NOTE | 2020-05-05 14:10 | PN ---
Progress Note, Physician History of Present Illness: Pt seen and examined at bedside. He is awake and alert. He denies shortness of breath. - Current Medication List Current Medications: Active Medications Aspirin (Asa -) 81 mg PO DAILY [facility] Last Admin: 05/05/20 09:05 Dose: 81 mg Documented by: Atorvastatin Calcium (Lipitor -) 80 mg PO HS [facility] Last Admin: 05/04/20 21:14 Dose: 80 mg Documented by: Heparin Sodium (Porcine) (Heparin -) 5,000 unit SQ TID [facility] Last Admin: 05/05/20 13:43 Dose: 5,000 unit Documented by: Meropenem 1 gm/ Dextrose 100 mls @ 0 mls/hr IVPB Q12H [facility] Last Admin: 05/05/20 02:46 Dose: 100 mls/hr Documented by: Potassium Phosphate 15 mm/ (Sodium Chloride) 255 mls @ 62.5 mls/hr IVPB ONCE ONE Stop: 05/05/20 15:04 Last Admin: 05/05/20 12:40 Dose: 62.5 mls/hr Documented by: Metoprolol Succinate (Toprol Xl -) 25 mg PO DAILY [facility] Last Admin: 05/05/20 09:05 Dose: 25 mg Documented by: Olanzapine (Zyprexa -) 5 mg PO [facility] Pantoprazole Sodium (Protonix Iv) 40 mg IVPUSH DAILY [facility] Last Admin: 05/05/20 09:05 Dose: 40 mg Documented by: - Objective Vital Signs: Vital Signs Temperature 97 F L 05/05/20 13:20 Pulse Rate 55 L 05/05/20 13:20 Respiratory Rate 20 05/05/20 13:20 Blood Pressure 119/87 05/05/20 13:20 O2 Sat by Pulse Oximetry (%) 97 05/05/20 09:00 Constitutional: Yes: Calm Eyes: Yes: Conjunctiva Clear HENT: Yes: Atraumatic Neck: Yes: Supple Cardiovascular: Yes: S1, S2 Respiratory: Yes: On Venti-Mask Gastrointestinal: Yes: Soft Genitourinary: Yes: Romo Present Musculoskeletal: Yes: Muscle Weakness Neurological: Yes: Oriented Labs: CBC, BMP 05/05/20 07:06 05/05/20 07:06 INR, PTT INR 0.99 (0.83-1.09) 05/02/20 03:55 Problem List - Problems (1) UDAY (acute kidney injury) Code(s): N17.9 - ACUTE KIDNEY FAILURE, UNSPECIFIED (2) Aspiration pneumonia Code(s): J69.0 - PNEUMONITIS DUE TO INHALATION OF FOOD AND VOMIT Qualifiers: Qualified Code(s): J69.0 - Pneumonitis due to inhalation of food and vomit (3) Coronary artery disease Code(s): I25.10 - ATHSCL HEART DISEASE OF [place] CORONARY ARTERY W/O ANG PCTRS Qualifiers: Qualified Code(s): I25.10 - Atherosclerotic heart disease of [place] coronary artery without angina pectoris Assessment/Plan Current Medications Generic Name Dose Route Start Last Admin Trade Name Freq PRN Reason Stop Dose Admin Aspirin 81 mg 05/03/20 10:00 05/05/20 09:05 Asa - PO 81 mg DAILY [facility] Administration Atorvastatin Calcium 80 mg 05/02/20 22:00 05/04/20 21:14 Lipitor - PO 80 mg HS [facility] Administration Heparin Sodium (Porcine) 5,000 unit 05/02/20 14:00 05/05/20 13:43 Heparin - SQ 5,000 unit TID [facility] Administration Meropenem 1 gm/ Dextrose 100 mls @ 0 mls/hr 05/02/20 15:30 05/05/20 02:46 IVPB 100 mls/hr Q12H [facility] Administration As Directed Potassium Phosphate 15 mm/ 255 mls @ 62.5 mls/hr 05/05/20 11:00 05/05/20 12:40 Sodium Chloride IVPB 05/05/20 15:04 62.5 mls/hr ONCE ONE Administration Metoprolol Succinate 25 mg 05/03/20 10:00 05/05/20 09:05 Toprol Xl - PO 25 mg DAILY [facility] Administration Olanzapine 5 mg 05/05/20 22:00 Zyprexa - PO HS [facility] Pantoprazole Sodium 40 mg 05/02/20 14:15 05/05/20 09:05 Protonix Iv IVPUSH 40 mg DAILY [facility] Administration Impression 1. UDAY 2. resp failure requiring bipap 3. cad with hx of stents 4. elevated ldh 5. hx htn 6. vomiting 7. aspiration PNA 8. bph 9. hld Plan - renal function stable - pt stable off of fluids - monitor pulse ox and titrate oxygen as tolerated - discussed with medical team - cont abx per medical team - follow cultures
--- NOTE | 2020-05-05 14:11 | PN ---
Physical Exam: SUBJECTIVE: Patient seen and examined. More alert and cooperative. Denies fever, chills.Reports improvement in respiratory effort. OBJECTIVE: Vital Signs Period Temp Pulse Resp BP Sys/Su Pulse Ox Last 24 Hr 97 F-99.9 F 55-92 18-20 119-150/78-95 97-100 GENERAL: The patient is awake, alert, and fully oriented, in no acute distress. HEAD: Normal with no signs of trauma. EYES: PERRL, extraocular movements intact, sclera anicteric, conjunctiva clear. No ptosis. ENT: Ears normal, nares patent, oropharynx clear without exudates, moist mucous membranes. NECK: Trachea midline, full range of motion, supple. LUNGS: Breath sounds equal, clear to auscultation bilaterally, no wheezes, no crackles, no accessory muscle use. On NRB, downgraded from BiPAP. HEART: Regular rate and rhythm, S1, S2 without murmur, rub or gallop. ABDOMEN: Soft, nontender, nondistended, normoactive bowel sounds, no guarding, no rebound, no hepatosplenomegaly, no masses. EXTREMITIES: 2+ pulses, warm, well-perfused, no edema. NEUROLOGICAL: Cranial nerves II through XII grossly intact. Normal speech, gait not observed. PSYCH: Normal mood, normal affect. SKIN: Warm, dry, normal turgor, no rashes or lesions noted Laboratory Results - last 24 hr 05/05/20 05/05/20 07:06 07:06 WBC 14.3 H RBC 3.94 L Hgb 12.0 Hct 36.5 MCV 92.6 MCH 30.3 MCHC 32.7 RDW 13.7 Plt Count 111 L MPV 12.2 H Sodium 138 Potassium 3.8 Chloride 105 Carbon Dioxide 25 Anion Gap 7 L BUN 21.2 H Creatinine 1.0 Est GFR (CKD-EPI)AfAm 86.15 Est GFR (CKD-EPI)NonAf 74.34 Random Glucose 115 H Calcium 8.0 L Phosphorus 1.6 L Magnesium 2.1 Active Medications Generic Name Dose Route Start Last Admin Trade Name Freq PRN Reason Stop Dose Admin Aspirin 81 mg 05/03/20 10:00 05/05/20 09:05 Asa - PO 81 mg DAILY [facility] Administration Atorvastatin Calcium 80 mg 05/02/20 22:00 05/04/20 21:14 Lipitor - PO 80 mg HS [facility] Administration Heparin Sodium (Porcine) 5,000 unit 05/02/20 14:00 05/05/20 13:43 Heparin - SQ 5,000 unit TID [facility] Administration Meropenem 1 gm/ Dextrose 100 mls @ 0 mls/hr 05/02/20 15:30 05/05/20 02:46 IVPB 100 mls/hr Q12H [facility] Administration As Directed Potassium Phosphate 15 mm/ 255 mls @ 62.5 mls/hr 05/05/20 11:00 05/05/20 12:40 Sodium Chloride IVPB 05/05/20 15:04 62.5 mls/hr ONCE ONE Administration Metoprolol Succinate 25 mg 05/03/20 10:00 05/05/20 09:05 Toprol Xl - PO 25 mg DAILY [facility] Administration Olanzapine 5 mg 05/05/20 22:00 Zyprexa - PO HS [facility] Pantoprazole Sodium 40 mg 05/02/20 14:15 05/05/20 09:05 Protonix Iv IVPUSH 40 mg DAILY [facility] Administration ASSESSMENT/PLAN: Pt is a 74 year old male with PMHx of HTN, HLD, carotid stents, pacemaker placement, 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 On restraints due to combative. #Acute respiratory failure 2/2 to pneumonia likely aspiration -Downgraded to NRB from BiPAP, tolerating well; de-escalate as tolerated -On meropenem; ID consulted -Elevated WBC 11.6 --> 14.3 -NPO for aspiration risk; speech and swallow --> MBS evaluation; recs dysphagia ground diet, thin liquid -chest CT reviewed #UDAY resolved -Resolved -renal consulted #SBO -improving SBO per AXR #Elevated troponin -Downtrending, latest 3.18 -No EKG changes, asymptomatic -Per cardio, no need for heparin or intervention -Likely secondary to UDAY or infectious state #Hx of HTN -Continue metoprolol -Held lisinopril due to UDAY #Hx of HLD -Continue lipitor #Hx of BPH -Continue flomax FEN -No standing luids -Monitor electrolytes -Dysphagia diet PPx Heparin 5000u TID Dispo Admitted to tele. On NRB, de-escalate as tolerated. On meropenem. Visit type - Emergency Visit Emergency Visit: Yes ED Registration Date: 05/02/20 Care time: The patient presented to the Emergency Department on the above date and was hospitalized for further evaluation of their emergent condition. - New Patient This patient is new to me today: No - Critical Care Critical Care patient: No - Medication Review Med list reviewed for High Risk Meds patients 65 and older: Yes ATTENDING PHYSICIAN STATEMENT I saw and evaluated the patient. I reviewed the resident's note and discussed the case with the resident. I agree with the resident's findings and plan as documented. SUBJECTIVE: OBJECTIVE: ASSESSMENT AND PLAN:
--- NOTE | 2020-05-05 14:40 | PN ---
Teaching Attending Note Name of Resident: Melissa Henao ATTENDING PHYSICIAN STATEMENT I saw and evaluated the patient. I reviewed the resident's note and discussed the case with the resident. I agree with the resident's findings and plan as documented. SUBJECTIVE: OBJECTIVE: Last Vital Signs Temp Pulse Resp BP Pulse Ox 97 F L 55 L 20 119/87 97 05/05/20 13:20 05/05/20 13:20 05/05/20 13:20 05/05/20 13:20 05/05/20 09:00 GENERAL: Awake, alert, and oriented x2, in no acute distress. HEENT: AT/NC, not p/c/j, EMOI LUNGS: Breath sounds equal, bibasilar crackles. No accessory muscle use. HEART: Regular rate and rhythm, normal S1 and S2 ABDOMEN: Soft, nontender, not distended MUSCULOSKELETAL: Normal range of motion at all joints. No bony deformities or tenderness. No CVA tenderness. UPPER EXTREMITIES: 2+ pulses, warm, well-perfused. No cyanosis. No clubbing. No peripheral edema. LOWER EXTREMITIES: 2+ pulses, warm, well-perfused. No calf tenderness. No peripheral edema. NEUROLOGICAL: Cranial nerves II-XII intact. Normal speech. CBCD WBC 14.3 K/mm3 (4.0-10.0) H 05/05/20 07:06 RBC 3.94 M/mm3 (4.00-5.60) L 05/05/20 07:06 Hgb 12.0 GM/dL (11.7-16.9) 05/05/20 07:06 Hct 36.5 % (35.4-49) 05/05/20 07:06 MCV 92.6 fl (80-96) 05/05/20 07:06 MCHC 32.7 g/dl (32.0-35.9) 05/05/20 07:06 RDW 13.7 % (11.9-15.9) 05/05/20 07:06 Plt Count 111 K/MM3 (134-434) L 05/05/20 07:06 MPV 12.2 fl (7.5-11.1) H 05/05/20 07:06 CMP Sodium 138 mmol/L (136-145) 05/05/20 07:06 Potassium 3.8 mmol/L (3.5-5.1) 05/05/20 07:06 Chloride 105 mmol/L (98-107) 05/05/20 07:06 Carbon Dioxide 25 mmol/L (21-32) 05/05/20 07:06 Anion Gap 7 MMOL/L (8-16) L 05/05/20 07:06 BUN 21.2 mg/dL (7-18) H 05/05/20 07:06 Creatinine 1.0 mg/dL (0.55-1.3) 05/05/20 07:06 Calcium 8.0 mg/dL (8.5-10.1) L 05/05/20 07:06 Total Bilirubin 0.8 mg/dL (0.2-1) 05/04/20 06:58 AST 77 U/L (15-37) H 05/04/20 06:58 ALT 36 U/L (13-61) 05/04/20 06:58 Alkaline Phosphatase 72 U/L (45-117) 05/04/20 06:58 Total Protein 5.3 g/dl (6.4-8.2) L 05/04/20 06:58 Albumin 2.5 g/dl (3.4-5.0) L 05/04/20 06:58 Active Medications Aspirin (Asa -) 81 mg PO DAILY [facility] Last Admin: 05/05/20 09:05 Dose: 81 mg Documented by: Atorvastatin Calcium (Lipitor -) 80 mg PO HS [facility] Last Admin: 05/04/20 21:14 Dose: 80 mg Documented by: Heparin Sodium (Porcine) (Heparin -) 5,000 unit SQ TID [facility] Last Admin: 05/05/20 13:43 Dose: 5,000 unit Documented by: Meropenem 1 gm/ Dextrose 100 mls @ 0 mls/hr IVPB Q12H [facility] Last Admin: 05/05/20 02:46 Dose: 100 mls/hr Documented by: Potassium Phosphate 15 mm/ (Sodium Chloride) 255 mls @ 62.5 mls/hr IVPB ONCE ONE Stop: 05/05/20 15:04 Last Admin: 05/05/20 12:40 Dose: 62.5 mls/hr Documented by: Metoprolol Succinate (Toprol Xl -) 25 mg PO DAILY [facility] Last Admin: 05/05/20 09:05 Dose: 25 mg Documented by: Olanzapine (Zyprexa -) 5 mg PO HS [facility] Pantoprazole Sodium (Protonix Iv) 40 mg IVPUSH DAILY [facility] Last Admin: 05/05/20 09:05 Dose: 40 mg Documented by: ASSESSMENT AND PLAN: Pt is a 74 year old male with PMHx of HTN, HLD, carotid stents, pacemaker placement, 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 On restraints due to combative. 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
[2020-05-05] MEDS ORDERED: ACETAMINOPHEN 325 MG TABLET (FP) PO PRN (16:13)
[2020-05-05] MEDS ORDERED: ALBUTEROL SO4 2.5/IPRATROPIUM 0.5 INH SOL 3 ML VIAL.NEB. NEB ONE (16:22)
[2020-05-05] MEDS: ATORVASTATIN CA 80 MG TABLET (FP) PO SCH (22:00)
[2020-05-05] MEDS: OLANZapine 5 MG TABLET PO SCH (22:00)
[2020-05-05] MEDS ORDERED: ALBUTEROL SO4 2.5/IPRATROPIUM 0.5 INH SOL 3 ML VIAL.NEB. NEB PRN (22:00)
[2020-05-06] MEDS ORDERED: MEROPENEM 1 GM VIAL (RESTRICTED TO ID) IVPB ONE ×2 (01:52→15:42)
[2020-05-06] MEDS ORDERED: DEXTROSE 5%-WATER 100 ML IVPB ONE ×2 (01:52→15:42)
[2020-05-06] MEDS: MEROPENEM 1 GM in DEXTROSE 5%-WATER 100 ML IVPB SCH ×2 (03:10→15:45)
[2020-05-06] MEDS: HEPARIN NA (PORCINE) 5,000 UNITS/ML 1ML VIAL SQ SCH ×3 (05:31→21:48)
--- NOTE | 2020-05-06 08:57 | PN ---
Progress Note, Physician History of Present Illness: More responsive remains off bipap on VM. - Current Medication List Current Medications: Active Medications Acetaminophen (Tylenol -) 650 mg PO Q6H PRN PRN Reason: Fever Or Pain Albuterol/Ipratropium (Duoneb -) 1 amp NEB Q6H PRN PRN Reason: SHORTNESS OF BREATH Aspirin (Asa -) 81 mg PO DAILY [facility] Last Admin: 05/05/20 09:05 Dose: 81 mg Documented by: Atorvastatin Calcium (Lipitor -) 80 mg PO HS [facility] Last Admin: 05/05/20 22:00 Dose: 80 mg Documented by: Heparin Sodium (Porcine) (Heparin -) 5,000 unit SQ TID [facility] Last Admin: 05/06/20 05:31 Dose: 5,000 unit Documented by: Meropenem 1 gm/ Dextrose 100 mls @ 0 mls/hr IVPB Q12H [facility] Last Admin: 05/06/20 03:10 Dose: 100 mls/hr Documented by: Metoprolol Succinate (Toprol Xl -) 25 mg PO DAILY [facility] Last Admin: 05/05/20 09:05 Dose: 25 mg Documented by: Olanzapine (Zyprexa -) 5 mg PO [facility] Last Admin: 05/05/20 22:00 Dose: 5 mg Documented by: Pantoprazole Sodium (Protonix Iv) 40 mg IVPUSH DAILY [facility] Last Admin: 05/05/20 09:05 Dose: 40 mg Documented by: - Objective Vital Signs: Vital Signs Temperature 98.5 F 05/06/20 05:44 Pulse Rate 80 05/06/20 05:44 Respiratory Rate 20 05/06/20 05:44 Blood Pressure 147/90 05/06/20 05:44 O2 Sat by Pulse Oximetry (%) 99 05/06/20 07:45 Constitutional: Yes: No Distress, Calm, Thin Neck: Yes: Supple Cardiovascular: Yes: Regular Rate and Rhythm Respiratory: Yes: Diminished, On Venti-Mask Gastrointestinal: Yes: Soft, Hypoactive Bowel Sounds Edema: No Labs: CBC, BMP 05/05/20 07:06 05/05/20 07:06 INR, PTT INR 0.99 (0.83-1.09) 05/02/20 03:55 Problem List - Problems (1) Aspiration pneumonia Code(s): J69.0 - PNEUMONITIS DUE TO INHALATION OF FOOD AND VOMIT Qualifiers: Aspiration pneumonia type: due to vomit Laterality: left Lung location: unspecified part of lung Qualified Code(s): J69.0 - Pneumonitis due to inhalation of food and vomit (2) Demand ischemia Code(s): I24.8 - OTHER FORMS OF ACUTE ISCHEMIC HEART DISEASE (3) Hyperlipidemia Code(s): E78.5 - HYPERLIPIDEMIA, UNSPECIFIED Qualifiers: Hyperlipidemia type: pure hypercholesterolemia Qualified Code(s): E78.00 - Pure hypercholesterolemia, unspecified; E78.0 - Pure hypercholesterolemia (4) Hypertension Code(s): I10 - ESSENTIAL (PRIMARY) HYPERTENSION Qualifiers: Hypertension type: essential hypertension Qualified Code(s): I10 - Essential (primary) hypertension (5) Coronary artery disease Code(s): I25.10 - ATHSCL HEART DISEASE OF [place] CORONARY ARTERY W/O ANG PCTRS Qualifiers: Coronary Disease-Associated Artery/Lesion type: [place] artery [place] vs. transplanted heart: [place] heart Associated angina: without angina Qualified Code(s): I25.10 - Atherosclerotic heart disease of [place] coronary artery without angina pectoris (6) UDAY (acute kidney injury) Code(s): N17.9 - ACUTE KIDNEY FAILURE, UNSPECIFIED (7) Elevated troponin I level Code(s): R79.89 - OTHER SPECIFIED ABNORMAL FINDINGS OF BLOOD CHEMISTRY (8) Respiratory failure Code(s): J96.90 - RESPIRATORY FAILURE, UNSP, UNSP W HYPOXIA OR HYPERCAPNIA Qualifiers: Chronicity: acute Respiratory failure complication: hypoxia Qualified Code(s): J96.01 - Acute respiratory failure with hypoxia (9) Cerebrovascular accident (CVA) Code(s): I63.9 - CEREBRAL INFARCTION, UNSPECIFIED Qualifiers: CVA mechanism: occlusion Precerebral and cerebral artery: carotid artery Laterality of affected vessel: left Qualified Code(s): I63.232 - Cerebral infarction due to unspecified occlusion or stenosis of left carotid arteries Assessment/Plan 05/03/2020 Echo: Normal LV size and fxn, mild , mild-mod MR 05/04/[address]: L>R lower lobe consolidation, possible JENN PNA 1. Acute hypoxic respiratory failure suspect aspiration pneumonia 2. CAD with demand ischemia 3. Carotid stents 4. Pacemaker placement 5. 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 UDAY resolved 7. Hypertension 8. Hyperlipidemia 9. BPH 10. Partial small bowel obstruction resolving PLAN: 1. Trend troponins peaked at 4.95 now trending down 2. Continue BIPAP, O2 as needed and empiric antibiotics. GI and DVT prophylaxis 3. Resume Lisinopril 10 qd as renal function stabilized 4. Continue Toprol XL 25 mg QD, Lipitor 80 mg QD and ASA 81 mg QD 5. Echocardiography report noted (normal LVEF 60-65%, mild to moderate MR, mild ) 6. Dysphagia diet as tolerated
[2020-05-06] MEDS: ASPIRIN 81 MG CHEWABLE TABLETS PO SCH (10:23)
[2020-05-06] MEDS: PANTOPRAZOLE SODIUM 40 MG VIAL IVPUSH SCH (10:23)
[2020-05-06] MEDS: metoPROLOL SUCCINATE 25 MG TAB.SR.24H (FP) PO SCH (10:23)
--- NOTE | 2020-05-06 10:42 | PN ---
Progress Note, MEDICATION AID - Note Progress Note: Selected Entries 05/04/20 05/04/20 05/04/20 01:47 06:00 09:00 Lunch Supper Temperature 101.1 F H 98.8 F Pulse Rate 90 56 L Respiratory 20 18 Rate Respiratory Normal Depth Respiratory Non-Labored Effort Blood Pressure 139/96 118/61 O2 Sat by Pulse Oximetry (%) Oxygen Delivery Method 05/04/20 05/04/20 05/04/20 10:00 13:39 17:00 Lunch NPO Supper Temperature 97.0 F L 98.3 F 98.1 F Pulse Rate 78 71 Respiratory 18 20 18 Rate Respiratory Depth Respiratory Effort Blood Pressure 135/72 137/83 145/95 O2 Sat by Pulse Oximetry (%) Oxygen Delivery Method 05/04/20 05/04/20 05/05/20 21:00 23:00 01:00 Lunch Supper 50% Temperature 99.1 F 97 F L Pulse Rate 88 92 H Respiratory 18 18 Rate Respiratory Normal Depth Respiratory Non-Labored Effort Blood Pressure 144/90 150/81 O2 Sat by Pulse 100 Oximetry (%) Oxygen Delivery Method 05/05/20 05/05/20 05/05/20 04:30 05:00 06:49 Lunch Supper Temperature 99.9 F H Pulse Rate 91 H Respiratory 18 Rate Respiratory Depth Respiratory Effort Blood Pressure 139/78 O2 Sat by Pulse 100 98 99 Oximetry (%) Oxygen Delivery Non-Rebreather Method Mask 05/05/20 07:52 Lunch Supper Temperature Pulse Rate Respiratory Rate Respiratory Depth Respiratory Effort Blood Pressure O2 Sat by Pulse 97 Oximetry (%) Oxygen Delivery Method Laboratory Tests 05/03/20 05/04/20 05/05/20 06:10 06:58 07:06 WBC 12.3 H 11.6 H 14.3 H Selected Entries 05/05/20 05/05/20 11:38 13:11 Breakfast 75% Diet Tolerated Well Fair Lunch 50% Selected Entries 05/05/20 05/05/20 05/05/20 01:00 04:30 05:00 Breakfast Diet Tolerated Lunch Supper Temperature Pulse Rate Blood Pressure O2 Sat by Pulse 100 100 98 Oximetry (%) Oxygen Delivery Method Fraction of Inspired Oxygen (FIO2) 05/05/20 05/05/20 05/05/20 06:49 07:52 09:00 Breakfast Diet Tolerated Lunch Supper Temperature Pulse Rate Blood Pressure O2 Sat by Pulse 99 97 97 Oximetry (%) Oxygen Delivery Non-Rebreather Non-Rebreather Method Mask Mask Fraction of 100 100 Inspired Oxygen (FIO2) 05/05/20 05/05/20 05/05/20 11:38 13:11 15:00 Breakfast 75% 75% Diet Tolerated Well Fair Fair Lunch 50% 50% Supper Temperature Pulse Rate Blood Pressure O2 Sat by Pulse Oximetry (%) Oxygen Delivery Method Fraction of Inspired Oxygen (FIO2) 05/05/20 05/05/20 05/05/20 15:52 21:00 23:00 Breakfast Diet Tolerated Fair Lunch Supper 50% Temperature Pulse Rate Blood Pressure O2 Sat by Pulse 98 97 Oximetry (%) Oxygen Delivery Method Fraction of Inspired Oxygen (FIO2) 05/06/20 05/06/20 05/06/20 01:14 02:00 05:44 Breakfast Diet Tolerated Lunch Supper Temperature 98.0 F 98.5 F Pulse Rate 71 80 Blood Pressure 148/82 147/90 O2 Sat by Pulse 97 Oximetry (%) Oxygen Delivery Method Fraction of Inspired Oxygen (FIO2) 05/06/20 07:45 Breakfast Diet Tolerated Lunch Supper Temperature Pulse Rate Blood Pressure O2 Sat by Pulse 99 Oximetry (%) Oxygen Delivery Method Fraction of Inspired Oxygen (FIO2) Laboratory Tests 05/04/20 05/05/20 06:58 07:06 WBC 11.6 H 14.3 H MBS completed. On Dys ground/thin liquids with good tolerance so far. Nursing placing pt on trial VM. Pt alert, verbal, delayed responses, speaks in sentences. "23 yo" Impaired memory, knows he is at [facility]. Monitor PO tolerance, congestion, fever.
[2020-05-06 11:37] LABS: BASO % 0.2 % (0-2.0); EOS % 0.9 % (0-4.5); HEMOGLOBIN 12.3 GM/dL (11.7-16.9); MCH 31.2 pg (25.7-33.7); MCHC 33.2 g/dl (32.0-35.9); MEAN PLT VOLUME 12.3 fl (7.5-11.1); MONO % 6.9 % (3.8-10.2); PLATELET COUNT 113 K/MM3 (134-434); RBC 3.93 M/mm3 (4.00-5.60); RDW 13.7 % (11.9-15.9)
[2020-05-06] MEDS ORDERED: POTASSIUM PHOSPHATE 30 MM in SODIUM CHLORIDE 500 ML IVPB ONE (12:00)
--- NOTE | 2020-05-06 12:00 | PN ---
Progress Note, Physician - Current Medication List Current Medications: Active Medications Acetaminophen (Tylenol -) 650 mg PO Q6H PRN PRN Reason: Fever Or Pain Albuterol/Ipratropium (Duoneb -) 1 amp NEB Q6H PRN PRN Reason: SHORTNESS OF BREATH Aspirin (Asa -) 81 mg PO DAILY [facility] Last Admin: 05/06/20 10:23 Dose: 81 mg Documented by: Atorvastatin Calcium (Lipitor -) 80 mg PO HS [facility] Last Admin: 05/05/20 22:00 Dose: 80 mg Documented by: Heparin Sodium (Porcine) (Heparin -) 5,000 unit SQ TID [facility] Last Admin: 05/06/20 05:31 Dose: 5,000 unit Documented by: Meropenem 1 gm/ Dextrose 100 mls @ 0 mls/hr IVPB Q12H [facility] Last Admin: 05/06/20 03:10 Dose: 100 mls/hr Documented by: Potassium Phosphate 30 mm/ (Sodium Chloride) 510 mls @ 85 mls/hr IVPB ONCE ONE Stop: 05/06/20 17:59 Metoprolol Succinate (Toprol Xl -) 25 mg PO DAILY [facility] Last Admin: 05/06/20 10:23 Dose: 25 mg Documented by: Olanzapine (Zyprexa -) 5 mg PO HS [facility] Last Admin: 05/05/20 22:00 Dose: 5 mg Documented by: Pantoprazole Sodium (Protonix Iv) 40 mg IVPUSH DAILY [facility] Last Admin: 05/06/20 10:23 Dose: 40 mg Documented by: - Objective Vital Signs: Vital Signs Temperature 98.5 F 05/06/20 05:44 Pulse Rate 80 05/06/20 05:44 Respiratory Rate 20 05/06/20 05:44 Blood Pressure 147/90 05/06/20 05:44 O2 Sat by Pulse Oximetry (%) 99 05/06/20 07:45 Labs: CBC, BMP 05/06/20 10:30 INR, PTT INR 0.99 (0.83-1.09) 05/02/20 03:55
[2020-05-06 12:02] LABS: BLOOD UREA NITROGEN 19.8 mg/dL (7-18); CALCIUM 8.2 mg/dL (8.5-10.1); CREATININE 0.9 mg/dL (0.55-1.3); PHOSPHOROUS 2.1 mg/dL (2.5-4.9)
--- NOTE | 2020-05-06 12:07 | PN ---
Teaching Attending Note Name of Resident: Melissa Henao ATTENDING PHYSICIAN STATEMENT I saw and evaluated the patient. I reviewed the resident's note and discussed the case with the resident. I agree with the resident's findings and plan as documented. SUBJECTIVE: OBJECTIVE: Last Vital Signs Temp Pulse Resp BP Pulse Ox 98.5 F 80 20 147/90 99 05/06/20 05:44 05/06/20 05:44 05/06/20 05:44 05/06/20 05:44 05/06/20 07:45 GENERAL: Awake, alert, and oriented x2, in no acute distress. HEENT: AT/NC, not p/c/j, EMOI LUNGS: Breath sounds equal, bibasilar crackles. No accessory muscle use. HEART: Regular rate and rhythm, normal S1 and S2 ABDOMEN: Soft, nontender, not distended MUSCULOSKELETAL: Normal range of motion at all joints. No bony deformities or tenderness. No CVA tenderness. UPPER EXTREMITIES: 2+ pulses, warm, well-perfused. No cyanosis. No clubbing. No peripheral edema. LOWER EXTREMITIES: 2+ pulses, warm, well-perfused. No calf tenderness. No peripheral edema. NEUROLOGICAL: Cranial nerves II-XII intact. Normal speech. CBCD WBC 11.0 K/mm3 (4.0-10.0) H 05/06/20 10:30 RBC 3.93 M/mm3 (4.00-5.60) L 05/06/20 10:30 Hgb 12.3 GM/dL (11.7-16.9) 05/06/20 10:30 Hct 37.0 % (35.4-49) 05/06/20 10:30 MCV 94.0 fl (80-96) 05/06/20 10:30 MCHC 33.2 g/dl (32.0-35.9) 05/06/20 10:30 RDW 13.7 % (11.9-15.9) 05/06/20 10:30 Plt Count 113 K/MM3 (134-434) L 05/06/20 10:30 MPV 12.3 fl (7.5-11.1) H 05/06/20 10:30 CMP Sodium 137 mmol/L (136-145) 05/06/20 10:30 Potassium 4.0 mmol/L (3.5-5.1) 05/06/20 10:30 Chloride 104 mmol/L (98-107) 05/06/20 10:30 Carbon Dioxide 26 mmol/L (21-32) 05/06/20 10:30 Anion Gap 7 MMOL/L (8-16) L 05/06/20 10:30 BUN 19.8 mg/dL (7-18) H 05/06/20 10:30 Creatinine 0.9 mg/dL (0.55-1.3) 05/06/20 10:30 Calcium 8.2 mg/dL (8.5-10.1) L 05/06/20 10:30 Total Bilirubin 0.8 mg/dL (0.2-1) 05/04/20 06:58 AST 77 U/L (15-37) H 05/04/20 06:58 ALT 36 U/L (13-61) 05/04/20 06:58 Alkaline Phosphatase 72 U/L (45-117) 05/04/20 06:58 Total Protein 5.3 g/dl (6.4-8.2) L 05/04/20 06:58 Albumin 2.5 g/dl (3.4-5.0) L 05/04/20 06:58 Active Medications Acetaminophen (Tylenol -) 650 mg PO Q6H PRN PRN Reason: Fever Or Pain Albuterol/Ipratropium (Duoneb -) 1 amp NEB Q6H PRN PRN Reason: SHORTNESS OF BREATH Aspirin (Asa -) 81 mg PO DAILY [facility] Last Admin: 05/06/20 10:23 Dose: 81 mg Documented by: Atorvastatin Calcium (Lipitor -) 80 mg PO HS [facility] Last Admin: 05/05/20 22:00 Dose: 80 mg Documented by: Heparin Sodium (Porcine) (Heparin -) 5,000 unit SQ TID [facility] Last Admin: 05/06/20 05:31 Dose: 5,000 unit Documented by: Meropenem 1 gm/ Dextrose 100 mls @ 0 mls/hr IVPB Q12H [facility] Last Admin: 05/06/20 03:10 Dose: 100 mls/hr Documented by: Potassium Phosphate 30 mm/ (Sodium Chloride) 510 mls @ 85 mls/hr IVPB ONCE ONE Stop: 05/06/20 17:59 Metoprolol Succinate (Toprol Xl -) 25 mg PO DAILY [facility] Last Admin: 05/06/20 10:23 Dose: 25 mg Documented by: Olanzapine (Zyprexa -) 5 mg PO HS [facility] Last Admin: 05/05/20 22:00 Dose: 5 mg Documented by: Pantoprazole Sodium (Protonix Iv) 40 mg IVPUSH DAILY [facility] Last Admin: 05/06/20 10:23 Dose: 40 mg Documented by: ASSESSMENT AND PLAN: Pt is a 74 year old male with PMHx of HTN, HLD, carotid stents, pacemaker placement, 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 On restraints due to combative. #Acute respiratory failure 2/2 to pneumonia likely aspiration improving On non rebreather, sat >96% more alert continue on meropenem aspiration precautions, fall precautions replete electrolytes PRN dysphagea/chopped diet Pulmonary consult appreciated Nephrology consult appreciated case discussed with consults # demand ischemia EKG showing paced rhythm, denies CP ECHO showing LVH with EF 55-60% band maker on board recommendations appreciated UDAY SBO ( improving on repeated KUB, still no BM, GI consult appreciated) HTN HLD BPH Heparin 5000u TID
--- NOTE | 2020-05-06 12:16 | PN ---
Progress Note (short form) - Note Progress Note: PULMONARY AWAKE/ALERT DENIES PAIN/SOB VSS/AFEBRILE Constitutional: Yes: Well Nourished, Calm Eyes: Yes: WNL HENT: Yes: WNL Neck: Yes: WNL Cardiovascular: Yes: Regular Rate and Rhythm, S1, S2 Respiratory: Yes: Rhonchi (scattered hebert rhonchi) Gastrointestinal: Yes: Normal Bowel Sounds, Soft Extremities: Yes: WNL Edema: No Labs/meds/notes/images/ct chest/duplex noted IMP ACUTE HYPOXEMIC/HYPERCAPNEIC RESPIRATORY FAILURE IMPROVED ASPIRATION UDAY IMPROVING + TROPONIN LIKELY DEMAND ISCHEMIA ELEVATED D-DIMER NON-SPECIFIC HTN H/O CVA ASHD S/P PPM HLD S/P CAROTID STENTS LACTIC ACIDOSIS CORRECTED PLAN SUPPLEMENTAL O2 MAINTAIN O2 SAT 90% NIPPV NEEDED ABX IVF INHALED BRONCHODILATORS ASPIRATION PRECAUTIONS TREND TROPONINS MONITOR LYTES,RENAL FUNCTION F/U CHEST X-RAYS Blake VANEGAS MD
--- NOTE | 2020-05-06 12:27 | PN ---
Progress Note, Physician History of Present Illness: Pt seen and examined at bedside. He is awake and more interactive. His oxygen requirement have improved. - Current Medication List Current Medications: Active Medications Acetaminophen (Tylenol -) 650 mg PO Q6H PRN PRN Reason: Fever Or Pain Albuterol/Ipratropium (Duoneb -) 1 amp NEB Q6H PRN PRN Reason: SHORTNESS OF BREATH Aspirin (Asa -) 81 mg PO DAILY [facility] Last Admin: 05/06/20 10:23 Dose: 81 mg Documented by: Atorvastatin Calcium (Lipitor -) 80 mg PO HS [facility] Last Admin: 05/05/20 22:00 Dose: 80 mg Documented by: Heparin Sodium (Porcine) (Heparin -) 5,000 unit SQ TID [facility] Last Admin: 05/06/20 05:31 Dose: 5,000 unit Documented by: Meropenem 1 gm/ Dextrose 100 mls @ 0 mls/hr IVPB Q12H [facility] Last Admin: 05/06/20 03:10 Dose: 100 mls/hr Documented by: Potassium Phosphate 30 mm/ (Sodium Chloride) 510 mls @ 85 mls/hr IVPB ONCE ONE Stop: 05/06/20 17:59 Metoprolol Succinate (Toprol Xl -) 25 mg PO DAILY [facility] Last Admin: 05/06/20 10:23 Dose: 25 mg Documented by: Olanzapine (Zyprexa -) 5 mg PO HS [facility] Last Admin: 05/05/20 22:00 Dose: 5 mg Documented by: Pantoprazole Sodium (Protonix Iv) 40 mg IVPUSH DAILY [facility] Last Admin: 05/06/20 10:23 Dose: 40 mg Documented by: - Objective Vital Signs: Vital Signs Temperature 98.5 F 05/06/20 05:44 Pulse Rate 80 05/06/20 05:44 Respiratory Rate 20 05/06/20 05:44 Blood Pressure 147/90 05/06/20 05:44 O2 Sat by Pulse Oximetry (%) 99 05/06/20 07:45 Constitutional: Yes: Calm Eyes: Yes: Conjunctiva Clear HENT: Yes: Atraumatic Neck: Yes: Supple Cardiovascular: Yes: S1, S2 Respiratory: Yes: On Venti-Mask Gastrointestinal: Yes: Soft Genitourinary: Yes: Romo Present Musculoskeletal: Yes: WNL Edema: No Neurological: Yes: Oriented Psychiatric: Yes: Oriented Labs: CBC, BMP 05/06/20 10:30 05/06/20 10:30 INR, PTT INR 0.99 (0.83-1.09) 05/02/20 03:55 Problem List - Problems (1) UDAY (acute kidney injury) Code(s): N17.9 - ACUTE KIDNEY FAILURE, UNSPECIFIED (2) Aspiration pneumonia Code(s): J69.0 - PNEUMONITIS DUE TO INHALATION OF FOOD AND VOMIT Qualifiers: Aspiration pneumonia type: due to vomit Laterality: left Lung location: unspecified part of lung Qualified Code(s): J69.0 - Pneumonitis due to inhalation of food and vomit (3) Coronary artery disease Code(s): I25.10 - ATHSCL HEART DISEASE OF [place] CORONARY ARTERY W/O ANG PCTRS Qualifiers: Coronary Disease-Associated Artery/Lesion type: [place] artery [place] vs. transplanted heart: [place] heart Associated angina: without angina Qualified Code(s): I25.10 - Atherosclerotic heart disease of [place] coronary artery without angina pectoris Assessment/Plan Current Medications Generic Name Dose Route Start Last Admin Trade Name Freq PRN Reason Stop Dose Admin Acetaminophen 650 mg 05/05/20 16:13 Tylenol - PO Q6H PRN Fever Or Pain Albuterol/Ipratropium 1 amp 05/05/20 22:00 Duoneb - NEB Q6H PRN SHORTNESS OF BREATH Aspirin 81 mg 05/03/20 10:00 05/06/20 10:23 Asa - PO 81 mg DAILY [facility] Administration Atorvastatin Calcium 80 mg 05/02/20 22:00 05/05/20 22:00 Lipitor - PO 80 mg HS [facility] Administration Heparin Sodium (Porcine) 5,000 unit 05/02/20 14:00 05/06/20 05:31 Heparin - SQ 5,000 unit TID [facility] Administration Meropenem 1 gm/ Dextrose 100 mls @ 0 mls/hr 05/02/20 15:30 05/06/20 03:10 IVPB 100 mls/hr Q12H [facility] Administration As Directed Potassium Phosphate 30 mm/ 510 mls @ 85 mls/hr 05/06/20 12:00 Sodium Chloride IVPB 05/06/20 17:59 ONCE ONE Metoprolol Succinate 25 mg 05/03/20 10:00 05/06/20 10:23 Toprol Xl - PO 25 mg DAILY [facility] Administration Olanzapine 5 mg 05/05/20 22:00 05/05/20 22:00 Zyprexa - PO 5 mg HS [facility] Administration Pantoprazole Sodium 40 mg 05/02/20 14:15 05/06/20 10:23 Protonix Iv IVPUSH 40 mg DAILY [facility] Administration Impression 1. UDAY 2. resp failure requiring bipap 3. cad with hx of stents 4. elevated ldh 5. hx htn 6. vomiting 7. aspiration PNA 8. bph 9. hld Plan - instrument maker and repairer has improved - cont abx - monitor pulse ox - titrate oxygen as tolerated - follow up swallow eval, pt was being evaluated
--- NOTE | 2020-05-06 12:30 | PN ---
Physical Exam: SUBJECTIVE: Patient seen and examined. Episode of wheezing in afternoon day prior given nebs. No wheezes heard today. No SOB, chest pain, fever/chills. OBJECTIVE: Vital Signs Period Temp Pulse Resp BP Sys/Su Pulse Ox Last 24 Hr 97 F-99.0 F 55-90 18-20 119-148/76-90 97-99 GENERAL: The patient is awake, alert, and fully oriented, in no acute distress. HEAD: Normal with no signs of trauma. EYES: PERRL, extraocular movements intact, sclera anicteric, conjunctiva clear. No ptosis. ENT: Ears normal, nares patent, oropharynx clear without exudates, moist mucous membranes. NECK: Trachea midline, full range of motion, supple. LUNGS: Breath sounds equal, clear to auscultation bilaterally, no wheezes, no crackles, no accessory muscle use. On NRB, downgraded from BiPAP. HEART: Regular rate and rhythm, S1, S2 without murmur, rub or gallop. ABDOMEN: Soft, nontender, nondistended, normoactive bowel sounds, no guarding, no rebound, no hepatosplenomegaly, no masses. EXTREMITIES: 2+ pulses, warm, well-perfused, no edema. NEUROLOGICAL: Cranial nerves II through XII grossly intact. Normal speech, gait not observed. PSYCH: Normal mood, normal affect. SKIN: Warm, dry, normal turgor, no rashes or lesions noted Laboratory Results - last 24 hr 05/06/20 05/06/20 10:30 10:30 WBC 11.0 H RBC 3.93 L Hgb 12.3 Hct 37.0 MCV 94.0 MCH 31.2 MCHC 33.2 RDW 13.7 Plt Count 113 L MPV 12.3 H Absolute Neuts (auto) 9.4 H Neutrophils % 85.0 H Lymphocytes % 7.0 L Monocytes % 6.9 D Eosinophils % 0.9 D Basophils % 0.2 Nucleated RBC % 0 Sodium 137 Potassium 4.0 Chloride 104 Carbon Dioxide 26 Anion Gap 7 L BUN 19.8 H Creatinine 0.9 Est GFR (CKD-EPI)AfAm 97.86 Est GFR (CKD-EPI)NonAf 84.43 Random Glucose 113 H Calcium 8.2 L Phosphorus 2.1 L Magnesium 2.0 Active Medications Generic Name Dose Route Start Last Admin Trade Name Freq PRN Reason Stop Dose Admin Acetaminophen 650 mg 05/05/20 16:13 Tylenol - PO Q6H PRN Fever Or Pain Albuterol/Ipratropium 1 amp 05/05/20 22:00 Duoneb - NEB Q6H PRN SHORTNESS OF BREATH Aspirin 81 mg 05/03/20 10:00 05/06/20 10:23 Asa - PO 81 mg DAILY [facility] Administration Atorvastatin Calcium 80 mg 05/02/20 22:00 05/05/20 22:00 Lipitor - PO 80 mg HS [facility] Administration Heparin Sodium (Porcine) 5,000 unit 05/02/20 14:00 05/06/20 05:31 Heparin - SQ 5,000 unit TID [facility] Administration Meropenem 1 gm/ Dextrose 100 mls @ 0 mls/hr 05/02/20 15:30 05/06/20 03:10 IVPB 100 mls/hr Q12H [facility] Administration As Directed Potassium Phosphate 30 mm/ 510 mls @ 85 mls/hr 05/06/20 12:00 Sodium Chloride IVPB 05/06/20 17:59 ONCE ONE Metoprolol Succinate 25 mg 05/03/20 10:00 05/06/20 10:23 Toprol Xl - PO 25 mg DAILY [facility] Administration Olanzapine 5 mg 05/05/20 22:00 05/05/20 22:00 Zyprexa - PO 5 mg HS [facility] Administration Pantoprazole Sodium 40 mg 05/02/20 14:15 05/06/20 10:23 Protonix Iv IVPUSH 40 mg DAILY [facility] Administration ASSESSMENT/PLAN: Pt is a 74 year old male with PMHx of HTN, HLD, carotid stents, pacemaker placement, 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 On restraints due to combative. #Acute respiratory failure 2/2 to pneumonia likely aspiration -Downgraded to NRB from BiPAP, tolerating well; de-escalate to venti mask as tolerated -On meropenem; ID consulted -Leukocytosis improving 14.3 --> 11 -NPO for aspiration risk; speech and swallow --> MBS evaluation; recs dysphagia ground diet, thin liquid -chest CT reviewed #UDAY resolved -Resolved -renal consulted #SBO -improved #Elevated troponin -Downtrended -Per cardio, no need for heparin or intervention #Hx of HTN -Continue metoprolol -Held lisinopril due to UDAY #Hx of HLD -Continue lipitor #Hx of BPH -Continue flomax FEN -No standing fluids -Monitor electrolytes -Dysphagia diet PPx Heparin 5000u TID Dispo Admitted to tele. On NRB, de-escalate as tolerated. On meropenem. Visit type - Emergency Visit Emergency Visit: Yes ED Registration Date: 05/02/20 Care time: The patient presented to the Emergency Department on the above date and was hospitalized for further evaluation of their emergent condition. - New Patient This patient is new to me today: Yes Date on this admission: 05/03/20 - Critical Care Critical Care patient: No - Medication Review Med list reviewed for High Risk Meds patients 65 and older: Yes ATTENDING PHYSICIAN STATEMENT I saw and evaluated the patient. I reviewed the resident's note and discussed the case with the resident. I agree with the resident's findings and plan as documented. SUBJECTIVE: OBJECTIVE: ASSESSMENT AND PLAN:
[2020-05-06 13:28] LABS: ANISOCYTOSIS 1+; MACROCYTOSIS 0; PLATELET ESTIMATE DECREASED; TEAR DROP CELLS 1+
--- NOTE | 2020-05-06 20:51 | PN ---
Progress Note (short form) - Note Progress Note: Chief Complaint: Events noted, notes reviewed, History of Present Illness: Seen and examined on telemetry. Events noted, notes reviewed, Echocardiography dated 05/03/2020 revealed normal left ventricular size and function, mild , mild-moderate MR Medications: Review of Systems Vital Signs: Last Vital Signs Temp Pulse Resp BP Pulse Ox 97.9 F 67 20 149/58 L 95 04/18/20 22:00 04/19/20 01:59 04/19/20 01:59 04/19/20 01:59 04/19/20 05:06 Intake & Output 04/16/20 04/17/20 04/18/20 04/19/20 23:59 23:59 23:59 23:59 Intake Total 500 811 Output Total 56436 35 [id number] [facility] -56287 -35 -9773 Weight 141 lb 1.533 oz 141 lb Neck: Supple Negative JVD Respiratory: Diminished Breath Sounds at the Bases Cardiovascular: S1 S2 Regular Rate Rhythm grade 2/6 systolic ejection murmur Gastrointestinal: Soft Benign Normal Bowel Sounds Ext: Negative Edema Labs: Assessment/Plan ASSESSMENT: 1. Acute hypoxic respiratory failure related to aspiration pneumonia, clinically resolving 2. CAD with evidence of demand ischemic injury angina pectoris 3. Diastolic LV dysfunction with clinical class 0 NYHA classification LV failure 4. AV block post Pacemaker placement 5. HTN 6. Hypercholesterolemia 7. History of CVA with residual deficit 8. Carotid disease post carotid stenting 9. Acute renal inefficiency, resolved 10. Partial small bowel obstruction, resolving PLAN: 1. Anais Negrete MD 1.07/15/31 Chief Complaint: Events noted, notes reviewed, History of Present Illness: Seen and examined on telemetry. Events noted, notes reviewed, Echocardiography dated 05/03/2020 revealed normal left ventricular size and function, mild , mild-moderate MR Medications: Review of Systems Vital Signs: Last Vital Signs Temp Pulse Resp BP Pulse Ox 97.9 F 67 20 149/58 L 95 04/18/20 22:00 04/19/20 01:59 04/19/20 01:59 04/19/20 01:59 04/19/20 05:06 Intake & Output 04/16/20 04/17/20 04/18/20 04/19/20 23:59 23:59 23:59 23:59 Intake Total 500 811 Output Total 42427 35 56979 [facility] -92156 -35 -9773 Weight 141 lb 1.533 oz 141 lb Neck: Supple Negative JVD Respiratory: Diminished Breath Sounds at the Bases Cardiovascular: S1 S2 Regular Rate Rhythm grade 2/6 systolic ejection murmur Gastrointestinal: Soft Benign Normal Bowel Sounds Ext: Negative Edema Labs: Assessment/Plan ASSESSMENT: ppm, htn, hld, here with dyspnea, leukocytosis, fever, pyuria and UDAY since improving 1. CAD with evidence of demand ischemic injury angina pectoris 2. Diastolic LV dysfunction with clinical class 0 NYHA classifications LV failure 3. Persistent atrial fibrillation with periods of rapid ventricular response 4. Post PPM 5. Dementia 3. Previous fall with SAH not ideal a/c candidate 4. s/p PPM ([facility] initially placed 1997; latest battery replacement ?2015; last checked 6 months ago) 5. HTN currently hypotensive 6. Hyperlipidemia 7. UTI 9. UDAY resolving 10. Demand ischemia PLAN: 1. Continue Metoprolol Tartrate to 100 mg BID and IV Lopressor as needed for added rate control. Continue Losartan 25 mg QD as tolerated 2. Not on anticoagulation due to bleeding risk 3. Completed empiric antibiotics 4. Continue Lipitor 40 mg QD. 5. Decrease Lasix 20 mg QD with monitoring diuretic response, renal function and electrolytes 6. PPM interrogation 7. 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 Matteo Jerry upon discharge PLAN: 1. Anais Negrete MD 2. Chief Complaint: Events noted, notes reviewed, History of Present Illness: Seen and examined on telemetry. Events noted, notes reviewed, Echocardiography dated 05/03/2020 revealed normal left ventricular size and function, mild , mild-moderate MR Medications: Review of Systems Vital Signs: Last Vital Signs Temp Pulse Resp BP Pulse Ox 97.9 F 67 20 149/58 L 95 04/18/20 22:00 04/19/20 01:59 04/19/20 01:59 04/19/20 01:59 04/19/20 05:06 Intake & Output 04/16/20 04/17/20 04/18/20 04/19/20 23:59 23:59 23:59 23:59 Intake Total 500 811 Output Total 76882 35 97389 Balance -70800 -35 -9773 Weight 141 lb 1.533 oz 141 lb Neck: Supple Negative JVD Respiratory: Diminished Breath Sounds at the Bases Cardiovascular: S1 S2 Regular Rate Rhythm grade 2/6 systolic ejection murmur Gastrointestinal: Soft Benign Normal Bowel Sounds Ext: Negative Edema Labs: Assessment/Plan ASSESSMENT: 1. Acute hypoxic respiratory failure related to aspiration pneumonia, clinically resolving 2. CAD with evidence of demand ischemic injury angina pectoris 3. Diastolic LV dysfunction with clinical class 0 NYHA classification LV failure 4. AV block post Pacemaker placement 5. HTN 6. Hypercholesterolemia 7. History of CVA with residual deficit 8. Carotid disease post carotid stenting 9. Acute renal inefficiency, resolved 10. Partial small bowel obstruction, resolving PLAN: 1. Anais Negrete MD 3. Chief Complaint: Events noted, notes reviewed, History of Present Illness: Seen and examined on telemetry. Events noted, notes reviewed, Echocardiography dated 05/03/2020 revealed normal left ventricular size and function, mild , mild-moderate MR Medications: Review of Systems Vital Signs: Last Vital Signs Temp Pulse Resp BP Pulse Ox 97.9 F 67 20 149/58 L 95 04/18/20 22:00 04/19/20 01:59 04/19/20 01:59 04/19/20 01:59 04/19/20 05:06 Intake & Output 04/16/20 04/17/20 04/18/20 04/19/20 23:59 23:59 23:59 23:59 Intake Total 500 811 Output Total 71944 35 [id number] [facility] -48558 -35 -9773 Weight 141 lb 1.533 oz 141 lb Neck: Supple Negative JVD Respiratory: Diminished Breath Sounds at the Bases Cardiovascular: S1 S2 Regular Rate Rhythm grade 2/6 systolic ejection murmur Gastrointestinal: Soft Benign Normal Bowel Sounds Ext: Negative Edema Labs: Assessment/Plan ASSESSMENT: 1. Acute hypoxic respiratory failure related to aspiration pneumonia, clinically resolving 2. CAD with evidence of demand ischemic injury angina pectoris 3. Diastolic LV dysfunction with clinical class 0 NYHA classification LV failure 4. AV block post Pacemaker placement 5. HTN 6. Hypercholesterolemia 7. History of CVA with residual deficit 8. Carotid disease post carotid stenting 9. Acute renal inefficiency, resolved 10. Partial small bowel obstruction, resolving PLAN: 1. Anais Negrete MD 4. Chief Complaint: Events noted, notes reviewed, History of Present Illness: Seen and examined on telemetry. Events noted, notes reviewed, Echocardiography dated 05/03/2020 revealed normal left ventricular size and function, mild , mild-moderate MR Medications: Review of Systems Vital Signs: Last Vital Signs Temp Pulse Resp BP Pulse Ox 97.9 F 67 20 149/58 L 95 04/18/20 22:00 04/19/20 01:59 04/19/20 01:59 04/19/20 01:59 04/19/20 05:06 Intake & Output 04/16/20 04/17/20 04/18/20 04/19/20 23:59 23:59 23:59 23:59 Intake Total 500 811 Output Total 68438 35 25488 Balance -05298 -35 -9773 Weight 141 lb 1.533 oz 141 lb Neck: Supple Negative JVD Respiratory: Diminished Breath Sounds at the Bases Cardiovascular: S1 S2 Regular Rate Rhythm grade 2/6 systolic ejection murmur Gastrointestinal: Soft Benign Normal Bowel Sounds Ext: Negative Edema Labs: Assessment/Plan ASSESSMENT: 1. Acute hypoxic respiratory failure related to aspiration pneumonia, clinically resolving 2. CAD with evidence of demand ischemic injury angina pectoris 3. Diastolic LV dysfunction with clinical class 0 NYHA classification LV failure 4. AV block post Pacemaker placement 5. HTN 6. Hypercholesterolemia 7. History of CVA with residual deficit 8. Carotid disease post carotid stenting 9. Acute renal inefficiency, resolved 10. Partial small bowel obstruction, resolving PLAN: 1. Anais Negrete MD 5. Chief Complaint: Events noted, notes reviewed, History of Present Illness: Seen and examined on telemetry. Events noted, notes reviewed, Echocardiography dated 05/03/2020 revealed normal left ventricular size and function, mild , mild-moderate MR Medications: Review of Systems Vital Signs: Last Vital Signs Temp Pulse Resp BP Pulse Ox 97.9 F 67 20 149/58 L 95 04/18/20 22:00 04/19/20 01:59 04/19/20 01:59 04/19/20 01:59 04/19/20 05:06 Intake & Output 04/16/20 04/17/20 04/18/20 04/19/20 23:59 23:59 23:59 23:59 Intake Total 500 811 Output Total 76149 35 03631 Balance -25928 -35 -9773 Weight 141 lb 1.533 oz 141 lb Neck: Supple Negative JVD Respiratory: Diminished Breath Sounds at the Bases Cardiovascular: S1 S2 Regular Rate Rhythm grade 2/6 systolic ejection murmur Gastrointestinal: Soft Benign Normal Bowel Sounds Ext: Negative Edema Labs: Assessment/Plan ASSESSMENT: 1. Acute hypoxic respiratory failure related to aspiration pneumonia, clinically resolving 2. CAD with evidence of demand ischemic injury angina pectoris 3. Diastolic LV dysfunction with clinical class 0 NYHA classification LV failure 4. AV block post Pacemaker placement 5. HTN 6. Hypercholesterolemia 7. History of CVA with residual deficit 8. Carotid disease post carotid stenting 9. Acute renal inefficiency, resolved 10. Partial small bowel obstruction, resolving PLAN: 1. Anais Negrete MD 6. Chief Complaint: Events noted, notes reviewed, History of Present Illness: Seen and examined on telemetry. Events noted, notes reviewed, Echocardiography dated 05/03/2020 revealed normal left ventricular size and function, mild , mild-moderate MR Medications: Review of Systems Vital Signs: Last Vital Signs Temp Pulse Resp BP Pulse Ox 97.9 F 67 20 149/58 L 95 04/18/20 22:00 04/19/20 01:59 04/19/20 01:59 04/19/20 01:59 04/19/20 05:06 Intake & Output 04/16/20 04/17/20 04/18/20 04/19/20 23:59 23:59 23:59 23:59 Intake Total 500 811 Output Total 19965 35 [id number] [facility]09756 -35 -9773 Weight 141 lb 1.533 oz 141 lb Neck: Supple Negative JVD Respiratory: Diminished Breath Sounds at the Bases Cardiovascular: S1 S2 Regular Rate Rhythm grade 2/6 systolic ejection murmur Gastrointestinal: Soft Benign Normal Bowel Sounds Ext: Negative Edema Labs: Assessment/Plan ASSESSMENT: 1. Acute hypoxic respiratory failure related to aspiration pneumonia, clinically resolving 2. CAD with evidence of demand ischemic injury angina pectoris 3. Diastolic LV dysfunction with clinical class 0 NYHA classification LV failure 4. AV block post Pacemaker placement 5. HTN 6. Hypercholesterolemia 7. History of CVA with residual deficit 8. Carotid disease post carotid stenting 9. Acute renal inefficiency, resolved 10. Partial small bowel obstruction, resolving PLAN: 1. Anais Negrete MD 7. Chief Complaint: Events noted, notes reviewed, History of Present Illness: Seen and examined on telemetry. Events noted, notes reviewed, Echocardiography dated 05/03/2020 revealed normal left ventricular size and function, mild , mild-moderate MR Medications: Review of Systems Vital Signs: Last Vital Signs Temp Pulse Resp BP Pulse Ox 97.9 F 67 20 149/58 L 95 04/18/20 22:00 04/19/20 01:59 04/19/20 01:59 04/19/20 01:59 04/19/20 05:06 Intake & Output 04/16/20 04/17/20 04/18/20 04/19/20 23:59 23:59 23:59 23:59 Intake Total 500 811 Output Total 54910 35 62888 Balance 43849 -35 -9773 Weight 141 lb 1.533 oz 141 lb Neck: Supple Negative JVD Respiratory: Diminished Breath Sounds at the Bases Cardiovascular: S1 S2 Regular Rate Rhythm grade 2/6 systolic ejection murmur Gastrointestinal: Soft Benign Normal Bowel Sounds Ext: Negative Edema Labs: Assessment/Plan ASSESSMENT: 1. Acute hypoxic respiratory failure related to aspiration pneumonia, clinically resolving 2. CAD with evidence of demand ischemic injury angina pectoris 3. Diastolic LV dysfunction with clinical class 0 NYHA classification LV failure 4. AV block post Pacemaker placement 5. HTN 6. Hypercholesterolemia 7. History of CVA with residual deficit 8. Carotid disease post carotid stenting 9. Acute renal inefficiency, resolved 10. Partial small bowel obstruction, resolving PLAN: 1. Anais Negrete MD 8. Chief Complaint: Events noted, notes reviewed, History of Present Illness: Seen and examined on telemetry. Events noted, notes reviewed, Echocardiography dated 05/03/2020 revealed normal left ventricular size and function, mild , mild-moderate MR Medications: Review of Systems Vital Signs: Last Vital Signs Temp Pulse Resp BP Pulse Ox 97.9 F 67 20 149/58 L 95 04/18/20 22:00 04/19/20 01:59 04/19/20 01:59 04/19/20 01:59 04/19/20 05:06 Intake & Output 04/16/20 04/17/20 04/18/20 04/19/20 23:59 23:59 23:59 23:59 Intake Total 500 811 Output Total 96095 35 72353 Balance -65572 -35 -9773 Weight 141 lb 1.533 oz 141 lb Neck: Supple Negative JVD Respiratory: Diminished Breath Sounds at the Bases Cardiovascular: S1 S2 Regular Rate Rhythm grade 2/6 systolic ejection murmur Gastrointestinal: Soft Benign Normal Bowel Sounds Ext: Negative Edema Labs: Assessment/Plan ASSESSMENT: 1. Acute hypoxic respiratory failure related to aspiration pneumonia, clinically resolving 2. CAD with evidence of demand ischemic injury angina pectoris 3. Diastolic LV dysfunction with clinical class 0 NYHA classification LV failure 4. AV block post Pacemaker placement 5. HTN 6. Hypercholesterolemia 7. History of CVA with residual deficit 8. Carotid disease post carotid stenting 9. Acute renal inefficiency, resolved 10. Partial small bowel obstruction, resolving PLAN: 1. Anais Negrete MD 9. Chief Complaint: Events noted, notes reviewed, History of Present Illness: Seen and examined on telemetry. Events noted, notes reviewed, Echocardiography dated 05/03/2020 revealed normal left ventricular size and function, mild , mild-moderate MR Medications: Review of Systems Vital Signs: Last Vital Signs Temp Pulse Resp BP Pulse Ox 97.9 F 67 20 149/58 L 95 04/18/20 22:00 04/19/20 01:59 04/19/20 01:59 04/19/20 01:59 04/19/20 05:06 Intake & Output 04/16/20 04/17/20 04/18/20 04/19/20 23:59 23:59 23:59 23:59 Intake Total 500 811 Output Total 49027 35 [id number] [facility]95011 -35 -9773 Weight 141 lb 1.533 oz 141 lb Neck: Supple Negative JVD Respiratory: Diminished Breath Sounds at the Bases Cardiovascular: S1 S2 Regular Rate Rhythm grade 2/6 systolic ejection murmur Gastrointestinal: Soft Benign Normal Bowel Sounds Ext: Negative Edema Labs: Assessment/Plan ASSESSMENT: 1. Acute hypoxic respiratory failure related to aspiration pneumonia, clinically resolving 2. CAD with evidence of demand ischemic injury angina pectoris 3. Diastolic LV dysfunction with clinical class 0 NYHA classification LV failure 4. AV block post Pacemaker placement 5. HTN 6. Hypercholesterolemia 7. History of CVA with residual deficit 8. Carotid disease post carotid stenting 9. Acute renal inefficiency, resolved 10. Partial small bowel obstruction, resolving PLAN: 1. Anais Negrete MD 10. Chief Complaint: Events noted, notes reviewed, History of Present Illness: Seen and examined on telemetry. Events noted, notes reviewed, Echocardiography dated 05/03/2020 revealed normal left ventricular size and function, mild , mild-moderate MR Medications: Review of Systems Vital Signs: Last Vital Signs Temp Pulse Resp BP Pulse Ox 97.9 F 67 20 149/58 L 95 04/18/20 22:00 04/19/20 01:59 04/19/20 01:59 04/19/20 01:59 04/19/20 05:06 Intake & Output 04/16/20 04/17/20 04/18/20 04/19/20 23:59 23:59 23:59 23:59 Intake Total 500 811 Output Total 48473 35 63083 Balance -22376 -35 -9773 Weight 141 lb 1.533 oz 141 lb Neck: Supple Negative JVD Respiratory: Diminished Breath Sounds at the Bases Cardiovascular: S1 S2 Regular Rate Rhythm grade 2/6 systolic ejection murmur Gastrointestinal: Soft Benign Normal Bowel Sounds Ext: Negative Edema Labs: Assessment/Plan ASSESSMENT: 1. Acute hypoxic respiratory failure related to aspiration pneumonia, clinically resolving 2. CAD with evidence of demand ischemic injury angina pectoris 3. Diastolic LV dysfunction with clinical class 0 NYHA classification LV failure 4. AV block post Pacemaker placement 5. HTN 6. Hypercholesterolemia 7. History of CVA with residual deficit 8. Carotid disease post carotid stenting 9. Acute renal inefficiency, resolved 10. Partial small bowel obstruction, resolving PLAN: 1. Anais Negrete MD 11. Chief Complaint: Events noted, notes reviewed, History of Present Illness: Seen and examined on telemetry. Events noted, notes reviewed, Echocardiography dated 05/03/2020 revealed normal left ventricular size and function, mild , mild-moderate MR Medications: Review of Systems Vital Signs: Last Vital Signs Temp Pulse Resp BP Pulse Ox 97.9 F 67 20 149/58 L 95 04/18/20 22:00 04/19/20 01:59 04/19/20 01:59 04/19/20 01:59 04/19/20 05:06 Intake & Output 04/16/20 04/17/20 04/18/20 04/19/20 23:59 23:59 23:59 23:59 Intake Total 500 811 Output Total 79101 35 20593 [facility] -44828 -35 -9773 Weight 141 lb 1.533 oz 141 lb Neck: Supple Negative JVD Respiratory: Diminished Breath Sounds at the Bases Cardiovascular: S1 S2 Regular Rate Rhythm grade 2/6 systolic ejection murmur Gastrointestinal: Soft Benign Normal Bowel Sounds Ext: Negative Edema Labs: Assessment/Plan ASSESSMENT: 1. Acute hypoxic respiratory failure related to aspiration pneumonia, clinically resolving 2. CAD with evidence of demand ischemic injury angina pectoris 3. Diastolic LV dysfunction with clinical class 0 NYHA classification LV failure 4. AV block post Pacemaker placement 5. HTN 6. Hypercholesterolemia 7. History of CVA with residual deficit 8. Carotid disease post carotid stenting 9. Acute renal inefficiency, resolved 10. Partial small bowel obstruction, resolving PLAN: 1. Anais Negrete MD 12. Chief Complaint: Events noted, notes reviewed, History of Present Illness: Seen and examined on telemetry. Events noted, notes reviewed, Echocardiography dated 05/03/2020 revealed normal left ventricular size and function, mild , mild-moderate MR Medications: Review of Systems Vital Signs: Last Vital Signs Temp Pulse Resp BP Pulse Ox 97.9 F 67 20 149/58 L 95 04/18/20 22:00 04/19/20 01:59 04/19/20 01:59 04/19/20 01:59 04/19/20 05:06 Intake & Output 04/16/20 04/17/20 04/18/20 04/19/20 23:59 23:59 23:59 23:59 Intake Total 500 811 Output Total 93234 35 48614 [facility]94025 -35 -9773 Weight 141 lb 1.533 oz 141 lb Neck: Supple Negative JVD Respiratory: Diminished Breath Sounds at the Bases Cardiovascular: S1 S2 Regular Rate Rhythm grade 2/6 systolic ejection murmur Gastrointestinal: Soft Benign Normal Bowel Sounds Ext: Negative Edema Labs: Assessment/Plan ASSESSMENT: 1. Acute hypoxic respiratory failure related to aspiration pneumonia, clinically resolving 2. CAD with evidence of demand ischemic injury angina pectoris 3. Diastolic LV dysfunction with clinical class 0 NYHA classification LV failure 4. AV block post Pacemaker placement 5. HTN 6. Hypercholesterolemia 7. History of CVA with residual deficit 8. Carotid disease post carotid stenting 9. Acute renal inefficiency, resolved 10. Partial small bowel obstruction, resolving PLAN: 1. Anais Negrete MD 13. Chief Complaint: Events noted, notes reviewed, History of Present Illness: Seen and examined on telemetry. Events noted, notes reviewed, Echocardiography dated 05/03/2020 revealed normal left ventricular size and function, mild , mild-moderate MR Medications: Review of Systems Vital Signs: Last Vital Signs Temp Pulse Resp BP Pulse Ox 97.9 F 67 20 149/58 L 95 04/18/20 22:00 04/19/20 01:59 04/19/20 01:59 04/19/20 01:59 04/19/20 05:06 Intake & Output 04/16/20 04/17/20 04/18/20 04/19/20 23:59 23:59 23:59 23:59 Intake Total 500 811 Output Total 08546 35 76751 [facility] -99639 -35 -9773 Weight 141 lb 1.533 oz 141 lb Neck: Supple Negative JVD Respiratory: Diminished Breath Sounds at the Bases Cardiovascular: S1 S2 Regular Rate Rhythm grade 2/6 systolic ejection murmur Gastrointestinal: Soft Benign Normal Bowel Sounds Ext: Negative Edema Labs: Assessment/Plan ASSESSMENT: 1. Acute hypoxic respiratory failure related to aspiration pneumonia, clinically resolving 2. CAD with evidence of demand ischemic injury angina pectoris 3. Diastolic LV dysfunction with clinical class 0 NYHA classification LV failure 4. AV block post Pacemaker placement 5. HTN 6. Hypercholesterolemia 7. History of CVA with residual deficit 8. Carotid disease post carotid stenting 9. Acute renal inefficiency, resolved 10. Partial small bowel obstruction, resolving PLAN: 1. Anais Negrete MD 14. Chief Complaint: Events noted, notes reviewed, History of Present Illness: Seen and examined on telemetry. Events noted, notes reviewed, Echocardiography dated 05/03/2020 revealed normal left ventricular size and function, mild , mild-moderate MR Medications: Review of Systems Vital Signs: Last Vital Signs Temp Pulse Resp BP Pulse Ox 97.9 F 67 20 149/58 L 95 04/18/20 22:00 04/19/20 01:59 04/19/20 01:59 04/19/20 01:59 04/19/20 05:06 Intake & Output 04/16/20 04/17/20 04/18/20 04/19/20 23:59 23:59 23:59 23:59 Intake Total 500 811 Output Total 75597 35 62287 [facility] -45396 -35 -9773 Weight 141 lb 1.533 oz 141 lb Neck: Supple Negative JVD Respiratory: Diminished Breath Sounds at the Bases Cardiovascular: S1 S2 Regular Rate Rhythm grade 2/6 systolic ejection murmur Gastrointestinal: Soft Benign Normal Bowel Sounds Ext: Negative Edema Labs: Assessment/Plan ASSESSMENT: 1. Acute hypoxic respiratory failure related to aspiration pneumonia, clinically resolving 2. CAD with evidence of demand ischemic injury angina pectoris 3. Diastolic LV dysfunction with clinical class 0 NYHA classification LV failure 4. AV block post Pacemaker placement 5. HTN 6. Hypercholesterolemia 7. History of CVA with residual deficit 8. Carotid disease post carotid stenting 9. Acute renal inefficiency, resolved 10. Partial small bowel obstruction, resolving PLAN: 1. Anais Negrete MD Chief Complaint: Events noted, notes reviewed, History of Present Illness: Seen and examined on telemetry. Events noted, notes reviewed, Echocardiography dated 05/03/2020 revealed normal left ventricular size and function, mild , mild-moderate MR Medications: Review of Systems Vital Signs: Last Vital Signs Temp Pulse Resp BP Pulse Ox 97.9 F 67 20 149/58 L 95 04/18/20 22:00 04/19/20 01:59 04/19/20 01:59 04/19/20 01:59 04/19/20 05:06 Intake & Output 04/16/20 04/17/20 04/18/20 04/19/20 23:59 23:59 23:59 23:59 Intake Total 500 811 Output Total 86467 35 84429 [facility]86057 -35 -9773 Weight 141 lb 1.533 oz 141 lb Neck: Supple Negative JVD Respiratory: Diminished Breath Sounds at the Bases Cardiovascular: S1 S2 Regular Rate Rhythm grade 2/6 systolic ejection murmur Gastrointestinal: Soft Benign Normal Bowel Sounds Ext: Negative Edema Labs: Assessment/Plan ASSESSMENT: 1. Acute hypoxic respiratory failure related to aspiration pneumonia, clinically resolving 2. CAD with evidence of demand ischemic injury angina pectoris 3. Diastolic LV dysfunction with clinical class 0 NYHA classification LV failure 4. AV block post Pacemaker placement 5. HTN 6. Hypercholesterolemia 7. History of CVA with residual deficit 8. Carotid disease post carotid stenting 9. Acute renal inefficiency, resolved 10. Partial small bowel obstruction, resolving PLAN: 1. Anais Negrete MD 15. Chief Complaint: Events noted, notes reviewed, History of Present Illness: Seen and examined on telemetry. Events noted, notes reviewed, Echocardiography dated 05/03/2020 revealed normal left ventricular size and function, mild , mild-moderate MR Medications: Review of Systems Vital Signs: Last Vital Signs Temp Pulse Resp BP Pulse Ox 97.9 F 67 20 149/58 L 95 04/18/20 22:00 04/19/20 01:59 04/19/20 01:59 04/19/20 01:59 04/19/20 05:06 Intake & Output 04/16/20 04/17/20 04/18/20 04/19/20 23:59 23:59 23:59 23:59 Intake Total 500 811 Output Total 06231 35 24331 [facility]08696 -35 -9773 Weight 141 lb 1.533 oz 141 lb Neck: Supple Negative JVD Respiratory: Diminished Breath Sounds at the Bases Cardiovascular: S1 S2 Regular Rate Rhythm grade 2/6 systolic ejection murmur Gastrointestinal: Soft Benign Normal Bowel Sounds Ext: Negative Edema Labs: Assessment/Plan ASSESSMENT: 1. Acute hypoxic respiratory failure related to aspiration pneumonia, clinically resolving 2. CAD with evidence of demand ischemic injury angina pectoris 3. Diastolic LV dysfunction with clinical class 0 NYHA classification LV failure 4. AV block post Pacemaker placement 5. HTN 6. Hypercholesterolemia 7. History of CVA with residual deficit 8. Carotid disease post carotid stenting 9. Acute renal inefficiency, resolved 10. Partial small bowel obstruction, resolving PLAN: 1. Anais Negrete MD
[2020-05-06] MEDS: ATORVASTATIN CA 80 MG TABLET (FP) PO SCH (21:49)
[2020-05-06] MEDS: OLANZapine 5 MG TABLET PO SCH (21:49)
[2020-05-07] MEDS ORDERED: DEXTROSE 5%-WATER 100 ML IVPB ONE ×2 (03:43→14:27)
[2020-05-07] MEDS ORDERED: MEROPENEM 1 GM VIAL (RESTRICTED TO ID) IVPB ONE ×2 (03:43→14:27)
[2020-05-07] MEDS: MEROPENEM 1 GM in DEXTROSE 5%-WATER 100 ML IVPB SCH ×2 (03:47→15:22)
[2020-05-07] MEDS: HEPARIN NA (PORCINE) 5,000 UNITS/ML 1ML VIAL SQ SCH ×3 (05:45→21:33)
--- NOTE | 2020-05-07 06:49 | PN ---
Progress Note (short form) - Note Progress Note: Chief Complaint: Events noted, notes reviewed, resting in bed, eating breakfast with assistance, no distress noted History of Present Illness: Seen and examined on telemetry. Events noted, notes reviewed, resting in bed, eating breakfast with assistance, no distress noted Echocardiography dated 05/03/2020 revealed normal left ventricular size and function, mild , mild-moderate MR Medications: Current Medications Generic Name Dose Route Start Last Admin Trade Name Freq PRN Reason Stop Dose Admin Acetaminophen 650 mg 05/05/20 16:13 Tylenol - PO Q6H PRN Fever Or Pain Albuterol/Ipratropium 1 amp 05/05/20 22:00 Duoneb - NEB Q6H PRN SHORTNESS OF BREATH Aspirin 81 mg 05/03/20 10:00 05/06/20 10:23 Asa - PO 81 mg DAILY [facility] Administration Atorvastatin Calcium 80 mg 05/02/20 22:00 05/06/20 21:49 Lipitor - PO 80 mg HS [facility] Administration Heparin Sodium (Porcine) 5,000 unit 05/02/20 14:00 05/07/20 05:45 Heparin - SQ 5,000 unit TID [facility] Administration Meropenem 1 gm/ Dextrose 100 mls @ 0 mls/hr 05/02/20 15:30 05/07/20 03:47 IVPB 100 mls/hr Q12H [facility] Administration As Directed Lisinopril 10 mg 05/07/20 10:00 Prinivil PO DAILY [facility] Metoprolol Succinate 25 mg 05/03/20 10:00 05/06/20 10:23 Toprol Xl - PO 25 mg DAILY [facility] Administration Olanzapine 5 mg 05/05/20 22:00 05/06/20 21:49 Zyprexa - PO 5 mg HS [facility] Administration Pantoprazole Sodium 40 mg 05/02/20 14:15 05/06/20 10:23 Protonix Iv IVPUSH 40 mg DAILY [facility] Administration Review of Systems - Review of Systems Unable to obtain Vital Signs: Last Vital Signs Temp Pulse Resp BP Pulse Ox 98.7 F 74 18 123/77 98 05/07/20 05:58 05/07/20 05:58 05/07/20 05:58 05/07/20 05:58 05/07/20 05:58 Intake & Output 05/04/20 05/05/20 05/06/20 05/07/20 23:59 23:59 23:59 23:59 Intake Total 1290 1294 1200 600 Output Total 800 520 325 Balance 490 774 875 600 Weight 200 lb Neck: Supple Negative JVD Respiratory: Diminished Breath Sounds at the Bases Cardiovascular: S1 S2 Regular Rate Rhythm grade 2/6 systolic ejection murmur Gastrointestinal: Soft Benign Normal Bowel Sounds Ext: Negative Edema Labs: CBC, BMP 05/07/20 08:03 05/07/20 08:03 CBC, BMP 05/06/20 10:30 05/06/20 10:30 Hepatic Panel Total Bilirubin 0.8 mg/dL (0.2-1) 05/04/20 06:58 AST 77 U/L (15-37) H 05/04/20 06:58 ALT 36 U/L (13-61) 05/04/20 06:58 Alkaline Phosphatase 72 U/L (45-117) 05/04/20 06:58 Albumin 2.5 g/dl (3.4-5.0) L 05/04/20 06:58 INR, PTT INR 0.99 (0.83-1.09) 05/02/20 03:55 Assessment/Plan ASSESSMENT: 1. Acute hypoxic respiratory failure related to aspiration pneumonia, clinically resolving 2. CAD with evidence of demand ischemic injury angina pectoris 3. Diastolic LV dysfunction with clinical class 0 NYHA classification LV failure 4. AV block post pacemaker placement 5. HTN 6. Hypercholesterolemia 7. History of CVA with residual deficit 8. Carotid disease post carotid stenting 9. Acute renal inefficiency, resolved 10. Partial small bowel obstruction, resolved 11. Thrombocytopenia PLAN: 1. Continue Toprol-XL therapy 2. Continue Lisinopril therapy 3. Continue Lipitor therapy 4. Continue Ecotrin therapy 5. Antibiotics as per the primary team Anais Negrete MD
[2020-05-07 08:15] LABS: BASO % 0.5 % (0-2.0); HEMATOCRIT 35.1 % (35.4-49); HEMOGLOBIN 11.8 GM/dL (11.7-16.9); LYMPH % 15.4 % (8-40); MCH 31.1 pg (25.7-33.7); MCHC 33.6 g/dl (32.0-35.9); MEAN CELL VOLUME 92.7 fl (80-96); MEAN PLT VOLUME 11.7 fl (7.5-11.1); MONO % 10.1 % (3.8-10.2); PLATELET COUNT 122 K/MM3 (134-434); RBC 3.78 M/mm3 (4.00-5.60); WHITE BLOOD COUNT 9.4 K/mm3 (4.0-10.0)
[2020-05-07 08:39] LABS: CALCIUM 7.7 mg/dL (8.5-10.1); CREATININE 0.8 mg/dL (0.55-1.3); MAGNESIUM 1.9 mg/dL (1.8-2.4); PHOSPHOROUS 2.4 mg/dL (2.5-4.9); POTASSIUM 4.4 mmol/L (3.5-5.1)
[2020-05-07] MEDS ORDERED: PT OWN MED DRAWER 7, Y5N ONE (09:45)
[2020-05-07] MEDS: metoPROLOL SUCCINATE 25 MG TAB.SR.24H (FP) PO SCH (10:16)
[2020-05-07] MEDS: PANTOPRAZOLE SODIUM 40 MG VIAL IVPUSH SCH (10:16)
[2020-05-07] MEDS: ASPIRIN 81 MG CHEWABLE TABLETS PO SCH (10:16)
[2020-05-07] MEDS: LISINOPRIL 10 MG TABLET (FP) PO SCH (10:16)
--- NOTE | 2020-05-07 11:14 | PN ---
Progress Note (short form) - Note Progress Note: PULMONARY APPEARS STABLE VSS/AFEBRILE Constitutional: Yes: Well Nourished, Calm Eyes: Yes: WNL HENT: Yes: WNL Neck: Yes: WNL Cardiovascular: Yes: Regular Rate and Rhythm, S1, S2 Respiratory: Yes: Rhonchi (scattered hebert rhonchi) Gastrointestinal: Yes: Normal Bowel Sounds, Soft Extremities: Yes: WNL Edema: No Labs/meds/notes/images/ct chest/duplex noted IMP ACUTE HYPOXEMIC/HYPERCAPNEIC RESPIRATORY FAILURE IMPROVED ASPIRATION UDAY IMPROVING + TROPONIN LIKELY DEMAND ISCHEMIA ELEVATED D-DIMER NON-SPECIFIC HTN H/O CVA ASHD S/P PPM HLD S/P CAROTID STENTS LACTIC ACIDOSIS CORRECTED PLAN SUPPLEMENTAL O2 MAINTAIN O2 SAT 90% NIPPV NEEDED ABX IVF INHALED BRONCHODILATORS ASPIRATION PRECAUTIONS MONITOR LYTES,RENAL FUNCTION F/U CHEST X-RAYS Blake VANEGAS MD
[2020-05-07 11:15] LABS: ANISOCYTOSIS 0; MACROCYTOSIS 0; PLATELET ESTIMATE DECREASED
[2020-05-07] MEDS ORDERED: NAPH,MB-DB/K PH,MBDB POWDER PACKET PO ONE (11:47)
--- NOTE | 2020-05-07 11:50 | PN ---
Physical Exam: SUBJECTIVE: Patient seen and examined OBJECTIVE: Vital Signs Period Temp Pulse Resp BP Sys/Su Pulse Ox Last 24 Hr 96.6 F-98.8 F 74-87 18-20 117-147/63-91 95-100 GENERAL: Awake, alert, and oriented x2, in no acute distress. HEENT: AT/NC, not p/c/j, EMOI LUNGS: Breath sounds equal, lt sided crackles. No accessory muscle use. HEART: Regular rate and rhythm, normal S1 and S2 ABDOMEN: Soft, nontender, not distended MUSCULOSKELETAL: Normal range of motion at all joints. No bony deformities or tenderness. No CVA tenderness. UPPER EXTREMITIES: 2+ pulses, warm, well-perfused. No cyanosis. No clubbing. No peripheral edema. LOWER EXTREMITIES: 2+ pulses, warm, well-perfused. No calf tenderness. No peripheral edema. NEUROLOGICAL: Cranial nerves II-XII intact. Normal speech. Laboratory Results - last 24 hr 05/06/20 05/06/20 05/07/20 10:30 10:30 08:03 WBC 9.4 RBC 3.78 L Hgb 11.8 Hct 35.1 L MCV 92.7 MCH 31.1 MCHC 33.6 RDW 14.0 Plt Count 122 L MPV 11.7 H Absolute Neuts (auto) 6.8 Neutrophils % 72.0 Neutrophils % (Manual) 75.5 Band Neutrophils % 2.0 Lymphocytes % 15.4 D Lymphocytes % (Manual) 6.1 L D Monocytes % 10.1 Monocytes % (Manual) 13 H D Eosinophils % 2.0 D Eosinophils % (Manual) 3.1 D Basophils % 0.5 Basophils % (Manual) 0.0 Myelocytes % (Man) 0 Promyelocytes % (Man) 0 Blast Cells % (Manual) 0 Nucleated RBC % 0 0 Metamyelocytes 0 Hypochromia 0 Platelet Estimate Decreased Platelet Comment Present Polychromasia 0 Poikilocytosis 1+ Anisocytosis 1+ Microcytosis 1+ Macrocytosis 0 Spherocytes 1+ Tear Drop Cells 1+ Sodium 137 Potassium 4.0 Chloride 104 Carbon Dioxide 26 Anion Gap 7 L BUN 19.8 H Creatinine 0.9 Est GFR (CKD-EPI)AfAm 97.86 Est GFR (CKD-EPI)NonAf 84.43 Random Glucose 113 H Calcium 8.2 L Phosphorus 2.1 L Magnesium 2.0 05/07/20 08:03 WBC RBC Hgb Hct MCV MCH MCHC RDW Plt Count MPV Absolute Neuts (auto) Neutrophils % Neutrophils % (Manual) Band Neutrophils % Lymphocytes % Lymphocytes % (Manual) Monocytes % Monocytes % (Manual) Eosinophils % Eosinophils % (Manual) Basophils % Basophils % (Manual) Myelocytes % (Man) Promyelocytes % (Man) Blast Cells % (Manual) Nucleated RBC % Metamyelocytes Hypochromia Platelet Estimate Platelet Comment Polychromasia Poikilocytosis Anisocytosis Microcytosis Macrocytosis Spherocytes Tear Drop Cells Sodium 135 L Potassium 4.4 Chloride 103 Carbon Dioxide 24 Anion Gap 8 BUN 18.0 Creatinine 0.8 Est GFR (CKD-EPI)AfAm 102.71 Est GFR (CKD-EPI)NonAf 88.62 Random Glucose 91 Calcium 7.7 L Phosphorus 2.4 L Magnesium 1.9 Active Medications Generic Name Dose Route Start Last Admin Trade Name Freq PRN Reason Stop Dose Admin Acetaminophen 650 mg 05/05/20 16:13 Tylenol - PO Q6H PRN Fever Or Pain Albuterol/Ipratropium 1 amp 05/05/20 22:00 Duoneb - NEB Q6H PRN SHORTNESS OF BREATH Aspirin 81 mg 05/03/20 10:00 05/07/20 10:16 Asa - PO 81 mg DAILY EDDI Administration Atorvastatin Calcium 80 mg 05/02/20 22:00 05/06/20 21:49 Lipitor - PO 80 mg HS [facility] Administration Heparin Sodium (Porcine) 5,000 unit 05/02/20 14:00 05/07/20 05:45 Heparin - SQ 5,000 unit TID [facility] Administration Meropenem 1 gm/ Dextrose 100 mls @ 0 mls/hr 05/02/20 15:30 05/07/20 03:47 IVPB 100 mls/hr Q12H ED[facility] Administration As Directed Lisinopril 10 mg 05/07/20 10:00 05/07/20 10:16 Prinivil PO 10 mg DAILY [facility] Administration Metoprolol Succinate 25 mg 05/03/20 10:00 05/07/20 10:16 Toprol Xl - PO 25 mg DAILY [facility] Administration Olanzapine 5 mg 05/05/20 22:00 05/06/20 21:49 Zyprexa - PO 5 mg HS EDDI Administration Pantoprazole Sodium 40 mg 05/02/20 14:15 05/07/20 10:16 Protonix Iv IVPUSH 40 mg DAILY ED[facility] Administration ASSESSMENT/PLAN: Pt is a 74 year old male with PMHx of HTN, HLD, carotid stents, pacemaker placement, CVA with RIGHT residual weakness and aphasia (2018), LEFT ear deafness, BPH presenting to ED after vomiting episode led to SOB and became hy poxic, admitted for acute respiratory failure likely secondary to aspiration pneumonia. 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 - New Patient This patient is new to me today: No - Critical Care Critical Care patient: No - Discharge Referral Referred to [facility] Med [facility] No - Medication Review Med list reviewed for High Risk Meds patients 65 and older: Yes (yes)
--- NOTE | 2020-05-07 14:09 | PN ---
Progress Note, Physician - Current Medication List Current Medications: Active Medications Acetaminophen (Tylenol -) 650 mg PO Q6H PRN PRN Reason: Fever Or Pain Albuterol/Ipratropium (Duoneb -) 1 amp NEB Q6H PRN PRN Reason: SHORTNESS OF BREATH Aspirin (Asa -) 81 mg PO DAILY [facility] Last Admin: 05/07/20 10:16 Dose: 81 mg Documented by: Atorvastatin Calcium (Lipitor -) 80 mg PO HS [facility] Last Admin: 05/06/20 21:49 Dose: 80 mg Documented by: Heparin Sodium (Porcine) (Heparin -) 5,000 unit SQ TID [facility] Last Admin: 05/07/20 05:45 Dose: 5,000 unit Documented by: Meropenem 1 gm/ Dextrose 100 mls @ 0 mls/hr IVPB Q12H [facility] Last Admin: 05/07/20 03:47 Dose: 100 mls/hr Documented by: Lisinopril (Prinivil) 10 mg PO DAILY [facility] Last Admin: 05/07/20 10:16 Dose: 10 mg Documented by: Metoprolol Succinate (Toprol Xl -) 25 mg PO DAILY [facility] Last Admin: 05/07/20 10:16 Dose: 25 mg Documented by: Olanzapine (Zyprexa -) 5 mg PO HS [facility] Last Admin: 05/06/20 21:49 Dose: 5 mg Documented by: Pantoprazole Sodium (Protonix Iv) 40 mg IVPUSH DAILY [facility] Last Admin: 05/07/20 10:16 Dose: 40 mg Documented by: - Objective Vital Signs: Vital Signs Temperature 98.3 F 05/07/20 10:00 Pulse Rate 79 05/07/20 10:00 Respiratory Rate 05/07/20 10:00 Blood Pressure 130/91 05/07/20 10:00 O2 Sat by Pulse Oximetry (%) 96 05/07/20 10:00 Labs: CBC, BMP 05/07/20 08:03 05/07/20 08:03 INR, PTT INR 0.99 (0.83-1.09) 05/02/20 03:55
--- NOTE | 2020-05-07 16:49 | PN ---
Progress Note (short form) - Note Progress Note: 1. UDAY 2. resp failure requiring bipap 3. cad with hx of stents 4. elevated ldh 5. hx htn 6. vomiting 7. aspiration PNA 8. bph 9. hld Active Medications Acetaminophen (Tylenol -) 650 mg PO Q6H PRN PRN Reason: Fever Or Pain Albuterol/Ipratropium (Duoneb -) 1 amp NEB Q6H PRN PRN Reason: SHORTNESS OF BREATH Aspirin (Asa -) 81 mg PO DAILY [facility] Last Admin: 05/07/20 10:16 Dose: 81 mg Documented by: Atorvastatin Calcium (Lipitor -) 80 mg PO HS [facility] Last Admin: 05/06/20 21:49 Dose: 80 mg Documented by: Heparin Sodium (Porcine) (Heparin -) 5,000 unit SQ TID [facility] Last Admin: 05/07/20 14:38 Dose: 5,000 unit Documented by: Meropenem 1 gm/ Dextrose 100 mls @ 0 mls/hr IVPB Q12H [facility] Last Admin: 05/07/20 15:22 Dose: 100 mls/hr Documented by: Lisinopril (Prinivil) 10 mg PO DAILY [facility] Last Admin: 05/07/20 10:16 Dose: 10 mg Documented by: Metoprolol Succinate (Toprol Xl -) 25 mg PO DAILY [facility] Last Admin: 05/07/20 10:16 Dose: 25 mg Documented by: Olanzapine (Zyprexa -) 5 mg PO HS [facility] Last Admin: 05/06/20 21:49 Dose: 5 mg Documented by: Pantoprazole Sodium (Protonix Iv) 40 mg IVPUSH DAILY [facility] Last Admin: 05/07/20 10:16 Dose: 40 mg Documented by: Last Vital Signs Temp Pulse Resp BP Pulse Ox 98.1 F 73 18 121/71 98 05/07/20 14:00 05/07/20 14:00 05/07/20 14:00 05/07/20 14:00 05/07/20 14:00 CBC, BMP 05/07/20 08:03 05/07/20 08:03 IMP- improving kidney function Plan- same rx
[2020-05-07] MEDS: OLANZapine 5 MG TABLET PO SCH (21:33)
[2020-05-07] MEDS: ATORVASTATIN CA 80 MG TABLET (FP) PO SCH (21:33)
[2020-05-08] MEDS ORDERED: MEROPENEM 1 GM VIAL (RESTRICTED TO ID) IVPB ONE (01:37)
[2020-05-08] MEDS ORDERED: DEXTROSE 5%-WATER 100 ML IVPB ONE (01:37)
[2020-05-08] MEDS: MEROPENEM 1 GM in DEXTROSE 5%-WATER 100 ML IVPB SCH (02:56)
[2020-05-08] MEDS: HEPARIN NA (PORCINE) 5,000 UNITS/ML 1ML VIAL SQ SCH ×3 (06:25→22:00)
--- NOTE | 2020-05-08 06:40 | PN ---
Progress Note (short form) - Note Progress Note: Chief Complaint: Events noted, notes reviewed, resting in bed, no distress noted, overall no change in status History of Present Illness: Seen and examined on telemetry. Events noted, notes reviewed, resting in bed, no distress noted, overall no change in status Echocardiography dated 05/03/2020 revealed normal left ventricular size and fun ction, mild , mild-moderate MR Medications: Current Medications Generic Name Dose Route Start Last Admin Trade Name Freq PRN Reason Stop Dose Admin Acetaminophen 650 mg 05/05/20 16:13 Tylenol - PO Q6H PRN Fever Or Pain Albuterol/Ipratropium 1 amp 05/05/20 22:00 Duoneb - NEB Q6H PRN SHORTNESS OF BREATH Aspirin 81 mg 05/03/20 10:00 05/07/20 10:16 Asa - PO 81 mg DAILY [facility] Administration Atorvastatin Calcium 80 mg 05/02/20 22:00 05/07/20 21:33 Lipitor - PO 80 mg HS [facility] Administration Heparin Sodium (Porcine) 5,000 unit 05/02/20 14:00 05/08/20 06:25 Heparin - SQ 5,000 unit TID [facility] Administration Meropenem 1 gm/ Dextrose 100 mls @ 0 mls/hr 05/02/20 15:30 05/08/20 02:56 IVPB 100 mls/hr Q12H ED[facility] Administration As Directed Lisinopril 10 mg 05/07/20 10:00 05/07/20 10:16 Prinivil PO 10 mg DAILY [facility] Administration Metoprolol Succinate 25 mg 05/03/20 10:00 05/07/20 10:16 Toprol Xl - PO 25 mg DAILY [facility] Administration Olanzapine 5 mg 05/05/20 22:00 05/07/20 21:33 Zyprexa - PO 5 mg HS [facility] Administration Pantoprazole Sodium 40 mg 05/02/20 14:15 05/07/20 10:16 Protonix Iv IVPUSH 40 mg DAILY [facility] Administration Review of Systems - Review of Systems Unable to obtain Vital Signs: Last Vital Signs Temp Pulse Resp BP Pulse Ox 97.9 F 70 18 134/78 99 05/07/20 21:00 05/07/20 21:00 05/07/20 21:00 05/07/20 21:00 05/07/20 21:00 Intake & Output 05/05/20 05/06/20 05/07/20 05/08/20 23:59 23:59 23:59 23:59 Intake Total 1294 1200 800 Output Total 520 325 Balance 774 875 800 Neck: Supple Negative JVD Respiratory: Diminished Breath Sounds at the Bases Cardiovascular: S1 S2 Regular Rate Rhythm grade 2/6 systolic ejection murmur Gastrointestinal: Soft Benign Normal Bowel Sounds Ext: Negative Edema Labs: CBC, BMP 05/08/20 06:28 05/08/20 06:28 Hepatic Panel Total Bilirubin 0.6 mg/dL (0.2-1) 05/08/20 06:28 AST 51 U/L (15-37) H 05/08/20 06:28 ALT 68 U/L (13-61) H 05/08/20 06:28 Alkaline Phosphatase 89 U/L (45-117) 05/08/20 06:28 Albumin 2.1 g/dl (3.4-5.0) L 05/08/20 06:28 Hepatic Panel Total Bilirubin 0.8 mg/dL (0.2-1) 05/04/20 06:58 AST 77 U/L (15-37) H 05/04/20 06:58 ALT 36 U/L (13-61) 05/04/20 06:58 Alkaline Phosphatase 72 U/L (45-117) 05/04/20 06:58 Albumin 2.5 g/dl (3.4-5.0) L 05/04/20 06:58 INR, PTT INR 0.99 (0.83-1.09) 05/02/20 03:55 Assessment/Plan ASSESSMENT: 1. Acute hypoxic respiratory failure related to aspiration pneumonia, clinically resolving pneumonia 2. CAD with evidence of demand ischemic injury angina pectoris 3. Diastolic LV dysfunction with clinical class 0 NYHA classification LV failure 4. AV block post pacemaker placement 5. HTN 6. Hypercholesterolemia 7. History of CVA with residual deficit 8. Carotid disease post carotid stenting 9. Acute renal inefficiency, resolved 10. Partial small bowel obstruction, resolved 11. Thrombocytopenia, resolved PLAN: 1. Continue Toprol-XL therapy 2. Continue Lisinopril therapy 3. Continue Lipitor therapy 4. Continue Ecotrin therapy 5. Antibiotics as per the primary team Anais Negrete MD
[2020-05-08 06:56] LABS: HEMATOCRIT 34.2 % (35.4-49); HEMOGLOBIN 11.5 GM/dL (11.7-16.9); MCH 30.9 pg (25.7-33.7); MCHC 33.6 g/dl (32.0-35.9); MEAN CELL VOLUME 92.1 fl (80-96); MEAN PLT VOLUME 11.3 fl (7.5-11.1); PLATELET COUNT 134 K/MM3 (134-434); RBC 3.72 M/mm3 (4.00-5.60); RDW 13.7 % (11.9-15.9); WHITE BLOOD COUNT 9.4 K/mm3 (4.0-10.0)
[2020-05-08 07:24] LABS: ALBUMIN 2.1 g/dl (3.4-5.0); BILIRUBIN,TOTAL 0.6 mg/dL (0.2-1); BLOOD UREA NITROGEN 19.9 mg/dL (7-18); CALCIUM 7.6 mg/dL (8.5-10.1); CREATININE 0.8 mg/dL (0.55-1.3); POTASSIUM 4.1 mmol/L (3.5-5.1)
[2020-05-08] MEDS ORDERED: SODIUM CHLORIDE 1,000 ML IV SCH (07:45)
[2020-05-08] MEDS ORDERED: POLYETHYLENE GLYCOL 3350 119 GM BTL PO PRN (08:59)
--- NOTE | 2020-05-08 09:00 | PN ---
Progress Note, Physician - Current Medication List Current Medications: Active Medications Acetaminophen (Tylenol -) 650 mg PO Q6H PRN PRN Reason: Fever Or Pain Albuterol/Ipratropium (Duoneb -) 1 amp NEB Q6H PRN PRN Reason: SHORTNESS OF BREATH Aspirin (Asa -) 81 mg PO DAILY [facility] Last Admin: 05/07/20 10:16 Dose: 81 mg Documented by: Atorvastatin Calcium (Lipitor -) 80 mg PO HS [facility] Last Admin: 05/07/20 21:33 Dose: 80 mg Documented by: Heparin Sodium (Porcine) (Heparin -) 5,000 unit SQ TID [facility] Last Admin: 05/08/20 06:25 Dose: 5,000 unit Documented by: Sodium Chloride (Normal Saline -) 1,000 mls @ 50 mls/hr IV ASDIR [facility] Stop: 05/09/20 07:44 Lisinopril (Prinivil) 10 mg PO DAILY [facility] Last Admin: 05/07/20 10:16 Dose: 10 mg Documented by: Metoprolol Succinate (Toprol Xl -) 25 mg PO DAILY [facility] Last Admin: 05/07/20 10:16 Dose: 25 mg Documented by: Olanzapine (Zyprexa -) 5 mg PO HS [facility] Last Admin: 05/07/20 21:33 Dose: 5 mg Documented by: Pantoprazole Sodium (Protonix Iv) 40 mg IVPUSH DAILY [facility] Last Admin: 05/07/20 10:16 Dose: 40 mg Documented by: Polyethylene Glycol (Miralax (For Daily Use) -) 17 gm PO BID PRN PRN Reason: CONSTIPATION - Objective Vital Signs: Vital Signs Temperature 98.1 F 05/08/20 06:00 Pulse Rate 69 05/08/20 06:00 Respiratory Rate 18 05/08/20 06:00 Blood Pressure 119/72 05/08/20 06:00 O2 Sat by Pulse Oximetry (%) 99 05/07/20 21:00 Labs: CBC, BMP 05/08/20 06:28 05/08/20 06:28 INR, PTT INR 0.99 (0.83-1.09) 05/02/20 03:55
[2020-05-08] MEDS: ASPIRIN 81 MG CHEWABLE TABLETS PO SCH (10:43)
[2020-05-08] MEDS: LISINOPRIL 10 MG TABLET (FP) PO SCH (10:43)
[2020-05-08] MEDS: PANTOPRAZOLE SODIUM 40 MG VIAL IVPUSH SCH (10:43)
[2020-05-08] MEDS: metoPROLOL SUCCINATE 25 MG TAB.SR.24H (FP) PO SCH (10:43)
--- NOTE | 2020-05-08 11:55 | PN ---
Teaching Attending Note Name of Resident: Melissa Henao ATTENDING PHYSICIAN STATEMENT I saw and evaluated the patient. I reviewed the resident's note and discussed the case with the resident. I agree with the resident's findings and plan as documented. SUBJECTIVE: pt seen and examined OBJECTIVE: Last Vital Signs Temp Pulse Resp BP Pulse Ox 97.8 F 71 18 125/65 92 L 05/08/20 10:00 05/08/20 11:13 05/08/20 10:00 05/08/20 10:00 05/08/20 11:13 GENERAL: Awake, alert, and oriented x3, in no acute distress. HEENT: AT/NC, not p/c/j, EMOI LUNGS: Breath sounds equal, lt sided crackles. No accessory muscle use. HEART: Regular rate and rhythm, normal S1 and S2 ABDOMEN: Soft, nontender, not distended MUSCULOSKELETAL: Normal range of motion at all joints. No bony deformities or tenderness. No CVA tenderness. UPPER EXTREMITIES: 2+ pulses, warm, well-perfused. No cyanosis. No clubbing. No peripheral edema. LOWER EXTREMITIES: 2+ pulses, warm, well-perfused. No calf tenderness. No peripheral edema. NEUROLOGICAL: Cranial nerves II-XII intact. Normal speech. CBCD WBC 9.4 K/mm3 (4.0-10.0) 05/08/20 06:28 RBC 3.72 M/mm3 (4.00-5.60) L 05/08/20 06:28 Hgb 11.5 GM/dL (11.7-16.9) L 05/08/20 06:28 Hct 34.2 % (35.4-49) L 05/08/20 06:28 MCV 92.1 fl (80-96) 05/08/20 06:28 MCHC 33.6 g/dl (32.0-35.9) 05/08/20 06:28 RDW 13.7 % (11.9-15.9) 05/08/20 06:28 Plt Count 134 K/MM3 (134-434) 05/08/20 06:28 MPV 11.3 fl (7.5-11.1) H 05/08/20 06:28 CMP Sodium 133 mmol/L (136-145) L 05/08/20 06:28 Potassium 4.1 mmol/L (3.5-5.1) 05/08/20 06:28 Chloride 100 mmol/L (98-107) 05/08/20 06:28 Carbon Dioxide 27 mmol/L (21-32) 05/08/20 06:28 Anion Gap 6 MMOL/L (8-16) L 05/08/20 06:28 BUN 19.9 mg/dL (7-18) H 05/08/20 06:28 Creatinine 0.8 mg/dL (0.55-1.3) 05/08/20 06:28 Calcium 7.6 mg/dL (8.5-10.1) L 05/08/20 06:28 Total Bilirubin 0.6 mg/dL (0.2-1) 05/08/20 06:28 AST 51 U/L (15-37) H 05/08/20 06:28 ALT 68 U/L (13-61) H 05/08/20 06:28 Alkaline Phosphatase 89 U/L (45-117) 05/08/20 06:28 Total Protein 5.0 g/dl (6.4-8.2) L 05/08/20 06:28 Albumin 2.1 g/dl (3.4-5.0) L 05/08/20 06:28 Active Medications Acetaminophen (Tylenol -) 650 mg PO Q6H PRN PRN Reason: Fever Or Pain Albuterol/Ipratropium (Duoneb -) 1 amp NEB Q6H PRN PRN Reason: SHORTNESS OF BREATH Aspirin (Asa -) 81 mg PO DAILY [facility] Last Admin: 05/08/20 10:43 Dose: 81 mg Documented by: Atorvastatin Calcium (Lipitor -) 80 mg PO HS [facility] Last Admin: 05/07/20 21:33 Dose: 80 mg Documented by: Heparin Sodium (Porcine) (Heparin -) 5,000 unit SQ TID [facility] Last Admin: 05/08/20 06:25 Dose: 5,000 unit Documented by: Sodium Chloride (Normal Saline -) 1,000 mls @ 50 mls/hr IV ASDIR [facility] Stop: 05/09/20 07:44 Last Admin: 05/08/20 08:00 Dose: 50 mls/hr Documented by: Lisinopril (Prinivil) 10 mg PO DAILY [facility] Last Admin: 05/08/20 10:43 Dose: 10 mg Documented by: Metoprolol Succinate (Toprol Xl -) 25 mg PO DAILY [facility] Last Admin: 05/08/20 10:43 Dose: 25 mg Documented by: Olanzapine (Zyprexa -) 5 mg PO HS [facility] Last Admin: 05/07/20 21:33 Dose: 5 mg Documented by: Pantoprazole Sodium (Protonix Iv) 40 mg IVPUSH DAILY [facility] Last Admin: 05/08/20 10:43 Dose: 40 mg Documented by: Polyethylene Glycol (Miralax (For Daily Use) -) 17 gm PO BID PRN PRN Reason: CONSTIPATION ASSESSMENT AND PLAN: Pt is a 74 year old male with PMHx of HTN, HLD, carotid stents, pacemaker placement, 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 #Acute respiratory failure 2/2 to pneumonia likely aspiration improving titrating O2 down as tolerated abx completed aspiration precautions, fall precautions replete electrolytes PRN dysphagea/chopped diet off tele Pulmonary consult appreciated Nephrology consult appreciated case discussed with consults # demand ischemia loading inspector on board recommendations appreciated thrombocytopenia, Resolved UDAY SBO ( improving on repeated KUB, added miralax, still no BM, GI consult appreciated) HTN HLD BPH Heparin 5000u TID
--- NOTE | 2020-05-08 11:55 | PN ---
Progress Note (short form) - Note Progress Note: PULMONARY RESTING COMFORTABLY NO CP/NO SOB VSS/AFEBRILE Constitutional: Yes: Well Nourished, Calm Eyes: Yes: WNL HENT: Yes: WNL Neck: Yes: WNL Cardiovascular: Yes: Regular Rate and Rhythm, S1, S2 Respiratory: Yes: Rhonchi (scattered hebert rhonchi) Gastrointestinal: Yes: Normal Bowel Sounds, Soft Extremities: Yes: WNL Edema: No Labs/meds/notes/images/ct chest/duplex noted IMP ACUTE HYPOXEMIC/HYPERCAPNEIC RESPIRATORY FAILURE IMPROVED ASPIRATION UDAY IMPROVING + TROPONIN LIKELY DEMAND ISCHEMIA ELEVATED D-DIMER NON-SPECIFIC HTN H/O CVA ASHD S/P PPM HLD S/P CAROTID STENTS LACTIC ACIDOSIS CORRECTED PLAN SUPPLEMENTAL O2 MAINTAIN O2 SAT 90% NIPPV NEEDED ABX IVF INHALED BRONCHODILATORS ASPIRATION PRECAUTIONS MONITOR LYTES,RENAL FUNCTION F/U CHEST X-RAYS Blake VANEGAS MD
--- NOTE | 2020-05-08 12:01 | PN ---
Physical Exam: SUBJECTIVE: Patient seen and examined. Denies any acute complaints. Weaned down to 5L NC. No BM still. OBJECTIVE: Vital Signs Period Temp Pulse Resp BP Sys/Su Pulse Ox Last 24 Hr 97.8 F-98.1 F 69-73 18-20 119-134/62-78 92-99 GENERAL: The patient is awake, alert, and fully oriented, in no acute distress. HEAD: Normal with no signs of trauma. EYES: PERRL, extraocular movements intact, sclera anicteric, conjunctiva clear. No ptosis. ENT: Ears normal, nares patent, oropharynx clear without exudates, moist mucous membranes. NECK: Trachea midline, full range of motion, supple. LUNGS: Breath sounds equal, no wheezes, no accessory muscle use. L sided crackles minimally. On 5L NC. HEART: Regular rate and rhythm, S1, S2 without murmur, rub or gallop. ABDOMEN: Soft, nontender, nondistended EXTREMITIES: 2+ pulses, warm, well-perfused, no edema. NEUROLOGICAL: Cranial nerves II through XII grossly intact. Normal speech, gait not observed. PSYCH: Normal mood, normal affect. SKIN: Warm, dry, normal turgor, no rashes or lesions noted Laboratory Results - last 24 hr 05/07/20 05/08/20 05/08/20 08:03 06:28 06:28 WBC 9.4 RBC 3.72 L Hgb 11.5 L Hct 34.2 L MCV 92.1 MCH 30.9 MCHC 33.6 RDW 13.7 Plt Count 134 MPV 11.3 H Neutrophils % (Manual) 57.8 D Band Neutrophils % 0.0 Lymphocytes % (Manual) 23.5 D Monocytes % (Manual) 9 Eosinophils % (Manual) 2.0 Basophils % (Manual) 2.0 D Myelocytes % (Man) 6 H D Promyelocytes % (Man) 0 Blast Cells % (Manual) 0 Nucleated RBC % 0 Metamyelocytes 0 Hypochromia 0 Platelet Estimate Decreased Polychromasia 0 Poikilocytosis 0 Anisocytosis 0 Microcytosis 0 Macrocytosis 0 Sodium 133 L Potassium 4.1 Chloride 100 Carbon Dioxide 27 Anion Gap 6 L BUN 19.9 H Creatinine 0.8 Est GFR (CKD-EPI)AfAm 102.71 Est GFR (CKD-EPI)NonAf 88.62 Random Glucose 98 Calcium 7.6 L Total Bilirubin 0.6 AST 51 H ALT 68 H Alkaline Phosphatase 89 Total Protein 5.0 L Albumin 2.1 L Active Medications Generic Name Dose Route Start Last Admin Trade Name Judith PRN Reason Stop Dose Admin Acetaminophen 650 mg 05/05/20 16:13 Tylenol - PO Q6H PRN Fever Or Pain Albuterol/Ipratropium 1 amp 05/05/20 22:00 Duoneb - NEB Q6H PRN SHORTNESS OF BREATH Aspirin 81 mg 05/03/20 10:00 05/08/20 10:43 Asa - PO 81 mg DAILY [facility] Administration Atorvastatin Calcium 80 mg 05/02/20 22:00 05/07/20 21:33 Lipitor - PO 80 mg HS [facility] Administration Heparin Sodium (Porcine) 5,000 unit 05/02/20 14:00 05/08/20 06:25 Heparin - SQ 5,000 unit TID [facility] Administration Sodium Chloride 1,000 mls @ 50 mls/hr 05/08/20 07:45 05/08/20 08:00 Normal Saline - IV 05/09/20 07:44 50 mls/hr ASDIR [facility] Administration Lisinopril 10 mg 05/07/20 10:00 05/08/20 10:43 Prinivil PO 10 mg DAILY [facility] Administration Metoprolol Succinate 25 mg 05/03/20 10:00 05/08/20 10:43 Toprol Xl - PO 25 mg DAILY [facility] Administration Olanzapine 5 mg 05/05/20 22:00 05/07/20 21:33 Zyprexa - PO 5 mg HS [facility] Administration Pantoprazole Sodium 40 mg 05/02/20 14:15 05/08/20 10:43 Protonix Iv IVPUSH 40 mg DAILY [facility] Administration Polyethylene Glycol 17 gm 05/08/20 08:59 Miralax (For Daily Use) - PO BID PRN CONSTIPATION ASSESSMENT/PLAN: Pt is a 74 year old male with PMHx of HTN, HLD, carotid stents, pacemaker lauren cement, 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 On restraints due to combative. #Acute respiratory failure 2/2 to pneumonia likely aspiration -Titrating O2 down as tolerated, currently on 5L NC -Completed meropenem ABx course today; ID consulted -Leukocytosis resolved -NPO for aspiration risk; speech and swallow --> MBS evaluation; recs dysphagia ground diet, thin liquid -chest CT reviewed -pre/post O2 ordered for O2 requirements #UDAY resolved -Resolved; Cr 0.8 -renal consulted #SBO -improved on imaging -still no BM, Miralax added -GI consult appreciated #Elevated troponin -Downtrended -Per cardio, no need for heparin or intervention #Hx of HTN -Continue metoprolol, restarted Lisinopril 05/07 #Hx of HLD -Continue lipitor #Hx of BPH -Continue flomax FEN -NS 50cc/hr -Monitor electrolytes -Dysphagia diet PPx Heparin 5000u TID Dispo Admitted to tele. On 5L NC, downgraded. ABx course completed (meropenem). Visit type - Emergency Visit Emergency Visit: Yes ED Registration Date: 05/02/20 Care time: The patient presented to the Emergency Department on the above date and was hospitalized for further evaluation of their emergent condition. - New Patient This patient is new to me today: No - Critical Care Critical Care patient: No - Medication Review Med list reviewed for High Risk Meds patients 65 and older: Yes ATTENDING PHYSICIAN STATEMENT I saw and evaluated the patient. I reviewed the resident's note and discussed the case with the resident. I agree with the resident's findings and plan as documented. SUBJECTIVE: OBJECTIVE: ASSESSMENT AND PLAN:
--- NOTE | 2020-05-08 19:27 | PN ---
Progress Note (short form) - Note Progress Note: 1. UDAY 2. resp failure requiring bipap 3. cad with hx of stents 4. elevated ldh 5. hx htn 6. vomiting 7. aspiration PNA 8. bph 9. hld Active Medications Acetaminophen (Tylenol -) 650 mg PO Q6H PRN PRN Reason: Fever Or Pain Albuterol/Ipratropium (Duoneb -) 1 amp NEB Q6H PRN PRN Reason: SHORTNESS OF BREATH Aspirin (Asa -) 81 mg PO DAILY [facility] Last Admin: 05/08/20 10:43 Dose: 81 mg Documented by: Atorvastatin Calcium (Lipitor -) 80 mg PO HS [facility] Last Admin: 05/07/20 21:33 Dose: 80 mg Documented by: Heparin Sodium (Porcine) (Heparin -) 5,000 unit SQ TID [facility] Last Admin: 05/08/20 14:20 Dose: 5,000 unit Documented by: Sodium Chloride (Normal Saline -) 1,000 mls @ 50 mls/hr IV ASDIR [facility] Stop: 05/09/20 07:44 Last Admin: 05/08/20 08:00 Dose: 50 mls/hr Documented by: Lisinopril (Prinivil) 10 mg PO DAILY [facility] Last Admin: 05/08/20 10:43 Dose: 10 mg Documented by: Metoprolol Succinate (Toprol Xl -) 25 mg PO DAILY [facility] Last Admin: 05/08/20 10:43 Dose: 25 mg Documented by: Olanzapine (Zyprexa -) 5 mg PO HS [facility] Last Admin: 05/07/20 21:33 Dose: 5 mg Documented by: Pantoprazole Sodium (Protonix Iv) 40 mg IVPUSH DAILY [facility] Last Admin: 05/08/20 10:43 Dose: 40 mg Documented by: Polyethylene Glycol (Miralax (For Daily Use) -) 17 gm PO BID PRN PRN Reason: CONSTIPATION Last Vital Signs Temp Pulse Resp BP Pulse Ox 98.2 F 63 18 130/71 95 05/08/20 18:00 05/08/20 18:00 05/08/20 18:00 05/08/20 18:00 05/08/20 18:00 CBC, BMP 05/08/20 06:28 05/08/20 06:28 CBC, BMP 05/07/20 08:03 05/07/20 08:03 IMP- improving kidney function Plan- same rx
[2020-05-08] MEDS: ATORVASTATIN CA 80 MG TABLET (FP) PO SCH (21:30)
[2020-05-08] MEDS: OLANZapine 5 MG TABLET PO SCH (21:30)
[2020-05-09] MEDS: HEPARIN NA (PORCINE) 5,000 UNITS/ML 1ML VIAL SQ SCH ×3 (05:55→21:36)
[2020-05-09 08:13] LABS: HEMATOCRIT 34.4 % (35.4-49); HEMOGLOBIN 11.6 GM/dL (11.7-16.9); MCH 31.1 pg (25.7-33.7); MCHC 33.7 g/dl (32.0-35.9); MEAN CELL VOLUME 92.2 fl (80-96); MEAN PLT VOLUME 12.1 fl (7.5-11.1); PLATELET COUNT 121 K/MM3 (134-434); RBC 3.74 M/mm3 (4.00-5.60); WHITE BLOOD COUNT 9.1 K/mm3 (4.0-10.0)
--- NOTE | 2020-05-09 08:41 | PN ---
Progress Note, Physician History of Present Illness: More interactive on NC, denies dyspnea. - Current Medication List Current Medications: Active Medications Acetaminophen (Tylenol -) 650 mg PO Q6H PRN PRN Reason: Fever Or Pain Albuterol/Ipratropium (Duoneb -) 1 amp NEB Q6H PRN PRN Reason: SHORTNESS OF BREATH Aspirin (Asa -) 81 mg PO DAILY [facility] Last Admin: 05/08/20 10:43 Dose: 81 mg Documented by: Atorvastatin Calcium (Lipitor -) 80 mg PO HS [facility] Last Admin: 05/08/20 21:30 Dose: 80 mg Documented by: Heparin Sodium (Porcine) (Heparin -) 5,000 unit SQ TID [facility] Last Admin: 05/09/20 05:55 Dose: 5,000 unit Documented by: Lisinopril (Prinivil) 10 mg PO DAILY [facility] Last Admin: 05/08/20 10:43 Dose: 10 mg Documented by: Metoprolol Succinate (Toprol Xl -) 25 mg PO DAILY [facility] Last Admin: 05/08/20 10:43 Dose: 25 mg Documented by: Olanzapine (Zyprexa -) 5 mg PO HS [facility] Last Admin: 05/08/20 21:30 Dose: 5 mg Documented by: Pantoprazole Sodium (Protonix Iv) 40 mg IVPUSH DAILY [facility] Last Admin: 05/08/20 10:43 Dose: 40 mg Documented by: Polyethylene Glycol (Miralax (For Daily Use) -) 17 gm PO BID PRN PRN Reason: CONSTIPATION - Objective Vital Signs: Vital Signs Temperature 98.6 F 05/09/20 06:00 Pulse Rate 73 05/09/20 06:00 Respiratory Rate 18 05/09/20 06:00 Blood Pressure 137/71 05/09/20 06:00 O2 Sat by Pulse Oximetry (%) 95 05/08/20 21:00 Constitutional: Yes: No Distress, Calm, Thin Neck: Yes: Supple Cardiovascular: Yes: Regular Rate and Rhythm Respiratory: Yes: Regular, Diminished, On Nasal O2 Gastrointestinal: Yes: Soft, Hypoactive Bowel Sounds Edema: No Labs: INR, PTT INR 0.99 (0.83-1.09) 05/02/20 03:55 Problem List - Problems (1) Aspiration pneumonia Code(s): J69.0 - PNEUMONITIS DUE TO INHALATION OF FOOD AND VOMIT Qualifiers: Aspiration pneumonia type: due to vomit Laterality: left Lung location: unspecified part of lung Qualified Code(s): J69.0 - Pneumonitis due to inhalation of food and vomit (2) Demand ischemia Code(s): I24.8 - OTHER FORMS OF ACUTE ISCHEMIC HEART DISEASE (3) Hyperlipidemia Code(s): E78.5 - HYPERLIPIDEMIA, UNSPECIFIED Qualifiers: Hyperlipidemia type: pure hypercholesterolemia Qualified Code(s): E78.00 - Pure hypercholesterolemia, unspecified; E78.0 - Pure hypercholesterolemia (4) Hypertension Code(s): I10 - ESSENTIAL (PRIMARY) HYPERTENSION Qualifiers: Hypertension type: essential hypertension Qualified Code(s): I10 - Essent ial (primary) hypertension (5) Coronary artery disease Code(s): I25.10 - ATHSCL HEART DISEASE OF [place] CORONARY ARTERY W/O ANG PCTRS Qualifiers: Coronary Disease-Associated Artery/Lesion type: [place] artery [place] vs. transplanted heart: [place] heart Associated angina: without angina Qualified Code(s): I25.10 - Atherosclerotic heart disease of [place] coronary artery without angina pectoris (6) UDAY (acute kidney injury) Code(s): N17.9 - ACUTE KIDNEY FAILURE, UNSPECIFIED (7) Elevated troponin I level Code(s): R79.89 - OTHER SPECIFIED ABNORMAL FINDINGS OF BLOOD CHEMISTRY (8) Respiratory failure Code(s): J96.90 - RESPIRATORY FAILURE, UNSP, UNSP W HYPOXIA OR HYPERCAPNIA Qualifiers: Chronicity: acute Respiratory failure complication: hypoxia Qualified Code(s): J96.01 - Acute respiratory failure with hypoxia (9) Cerebrovascular accident (CVA) Code(s): I63.9 - CEREBRAL INFARCTION, UNSPECIFIED Qualifiers: CVA mechanism: occlusion Precerebral and cerebral artery: carotid artery Laterality of affected vessel: left Qualified Code(s): I63.232 - Cerebral infarction due to unspecified occlusion or stenosis of left carotid arteries Assessment/Plan 05/03/2020 Echo: Normal LV size and fxn, mild , mild-mod MR 05/04/[address]: L>R lower lobe consolidation, possible JENN PNA 1. Acute hypoxic respiratory failure related to aspiration pneumonia, clinically resolving 2. CAD with evidence of demand ischemic injury angina pectoris 3. Diastolic LV dysfunction with clinical class 0 NYHA classification LV failure 4. AV block post pacemaker placement 5. HTN 6. Hypercholesterolemia 7. History of CVA with residual deficit 8. Carotid disease post carotid stenting 9. Acute renal inefficiency, resolved 10. Partial small bowel obstruction, resolved 11. Thrombocytopenia, resolved PLAN: 1. Continue BIPAP, BD, O2 as needed and antibiotic course. GI and DVT prophylaxis 2. Continue Lisinopril 10 qd as renal function stabilized 3. Continue Toprol XL 25 mg QD, Lipitor 80 mg QD and ASA 81 mg QD 4. Echocardiography report noted (normal LVEF 60-65%, mild to moderate MR, mild ) 5. Dysphagia diet as tolerated
[2020-05-09 08:48] LABS: POTASSIUM 4.5 mmol/L (3.5-5.1)
[2020-05-09 08:55] LABS: ALBUMIN 2.1 g/dl (3.4-5.0); BILIRUBIN,TOTAL 0.6 mg/dL (0.2-1); BLOOD UREA NITROGEN 19.1 mg/dL (7-18); CALCIUM 7.5 mg/dL (8.5-10.1); CREATININE 0.8 mg/dL (0.55-1.3); MAGNESIUM 2.1 mg/dL (1.8-2.4); PHOSPHOROUS 2.2 mg/dL (2.5-4.9); TOT PROT 4.9 g/dl (6.4-8.2)
[2020-05-09] MEDS ORDERED: PT OWN MED DRAWER 7, Y5N ONE ×2 (09:18→11:24)
[2020-05-09] MEDS: ASPIRIN 81 MG CHEWABLE TABLETS PO SCH (09:21)
[2020-05-09] MEDS: PANTOPRAZOLE SODIUM 40 MG VIAL IVPUSH SCH (09:21)
[2020-05-09] MEDS: metoPROLOL SUCCINATE 25 MG TAB.SR.24H (FP) PO SCH (09:21)
[2020-05-09] MEDS: LISINOPRIL 10 MG TABLET (FP) PO SCH (09:21)
[2020-05-09] MEDS ORDERED: POTASSIUM PHOSPHATE 15 MM in SODIUM CHLORIDE 250 ML IVPB ONE (10:00)
--- NOTE | 2020-05-09 10:54 | PN ---
Progress Note, EDUCATION ASSISTANT - Note Progress Note: Selected Entries 05/07/20 05/07/20 05/07/20 00:48 02:00 05:20 Breakfast Diet Tolerated Lunch Supper Temperature Pulse Rate Blood Pressure O2 Sat by Pulse 100 96 98 Oximetry (%) Oxygen Delivery Method 05/07/20 05/07/20 05/07/20 05:58 09:00 10:00 Breakfast Diet Tolerated Lunch Supper Temperature Pulse Rate Blood Pressure O2 Sat by Pulse 98 96 96 Oximetry (%) Oxygen Delivery Venturi Mask Method 05/07/20 05/07/20 05/07/20 14:00 15:00 18:00 Breakfast 100% Diet Tolerated Fair Fair Lunch 75% Supper 50% Temperature Pulse Rate Blood Pressure O2 Sat by Pulse 98 Oximetry (%) Oxygen Delivery Method 05/07/20 05/08/20 05/08/20 21:00 09:00 10:00 Breakfast Diet Tolerated Lunch Supper Temperature Pulse Rate Blood Pressure O2 Sat by Pulse 99 95 95 Oximetry (%) Oxygen Delivery Venturi Mask Nasal Cannula Method 05/08/20 05/08/20 05/08/20 11:13 14:00 15:00 Breakfast 75% Diet Tolerated Fair Lunch 75% Supper Temperature Pulse Rate Blood Pressure O2 Sat by Pulse 92 L 97 Oximetry (%) Oxygen Delivery Method 05/08/20 05/08/20 05/08/20 18:00 20:42 21:00 Breakfast Diet Tolerated Lunch Supper Temperature Pulse Rate Blood Pressure O2 Sat by Pulse 95 95 95 Oximetry (%) Oxygen Delivery Method 05/09/20 05/09/20 06:00 09:22 Breakfast Diet Tolerated Lunch Supper Temperature 98.6 F 98.7 F Pulse Rate 73 65 Blood Pressure 137/71 123/79 O2 Sat by Pulse Oximetry (%) Oxygen Delivery Method Laboratory Tests 05/09/20 05:55 WBC 9.1 On Dys ground/thin liquids Cough response observed by [employer], while fed carefully. Swallowing reassessed. Fed pt and allowed to hold cup, drinking carefully, single sips. Intermittent cough response observed, c/w aspiration suspected. Slow mastication of small bite of cookie. Improved pulmonary function. IMP-Intermittent cough persists on thin liquid Suggest-downgradeto nectar thick liquid. Continue Dys ground for now. Monitor PO tolerance, congestion, fever.
--- NOTE | 2020-05-09 12:22 | PN ---
Teaching Attending Note Name of Resident: Melissa Henao ATTENDING PHYSICIAN STATEMENT I saw and evaluated the patient. I reviewed the resident's note and discussed the case with the resident. I agree with the resident's findings and plan as documented. SUBJECTIVE: pt seen and examined at bedside OBJECTIVE: Last Vital Signs Temp Pulse Resp BP Pulse Ox 98.7 F 65 18 123/79 95 05/09/20 09:22 05/09/20 09:22 05/09/20 09:22 05/09/20 09:22 05/09/20 09:22 GENERAL: Awake, alert, and oriented x2, in no acute distress. HEENT: AT/NC, not p/c/j, EMOI LUNGS: Breath sounds equal, lt sided crackles. No accessory muscle use. HEART: Regular rate and rhythm, normal S1 and S2 ABDOMEN: Soft, nontender, not distended MUSCULOSKELETAL: Normal range of motion at all joints. No bony deformities or tenderness. No CVA tenderness. UPPER EXTREMITIES: 2+ pulses, warm, well-perfused. No cyanosis. No clubbing. No peripheral edema. LOWER EXTREMITIES: 2+ pulses, warm, well-perfused. No calf tenderness. No peripheral edema. NEUROLOGICAL: Cranial nerves II-XII intact. Normal speech. CBCD WBC 9.1 K/mm3 (4.0-10.0) 05/09/20 05:55 RBC 3.74 M/mm3 (4.00-5.60) L 05/09/20 05:55 Hgb 11.6 GM/dL (11.7-16.9) L 05/09/20 05:55 Hct 34.4 % (35.4-49) L 05/09/20 05:55 MCV 92.2 fl (80-96) 05/09/20 05:55 MCHC 33.7 g/dl (32.0-35.9) 05/09/20 05:55 RDW 14.0 % (11.9-15.9) 05/09/20 05:55 Plt Count 121 K/MM3 (134-434) L 05/09/20 05:55 MPV 12.1 fl (7.5-11.1) H 05/09/20 05:55 CMP Sodium 136 mmol/L (136-145) 05/09/20 05:55 Potassium 4.5 mmol/L (3.5-5.1) 05/09/20 05:55 Chloride 102 mmol/L (98-107) 05/09/20 05:55 Carbon Dioxide 26 mmol/L (21-32) 05/09/20 05:55 Anion Gap 7 MMOL/L (8-16) L 05/09/20 05:55 BUN 19.1 mg/dL (7-18) H 05/09/20 05:55 Creatinine 0.8 mg/dL (0.55-1.3) 05/09/20 05:55 Random Glucose 86 mg/dL (74-106) 05/09/20 05:55 Calcium 7.5 mg/dL (8.5-10.1) L 05/09/20 05:55 Total Bilirubin 0.6 mg/dL (0.2-1) 05/09/20 05:55 AST 42 U/L (15-37) H 05/09/20 05:55 ALT 64 U/L (13-61) H 05/09/20 05:55 Alkaline Phosphatase 94 U/L (45-117) 05/09/20 05:55 Total Protein 4.9 g/dl (6.4-8.2) L 05/09/20 05:55 Albumin 2.1 g/dl (3.4-5.0) L 05/09/20 05:55 CARDIAC ENZYMES Creatine Kinase 1473 U/L (26-308) H 05/03/20 06:10 Troponin I 3.18 ng/ml (0.00-0.05) H* 05/03/20 06:10 Active Medications Acetaminophen (Tylenol -) 650 mg PO Q6H PRN PRN Reason: Fever Or Pain Albuterol/Ipratropium (Duoneb -) 1 amp NEB Q6H PRN PRN Reason: SHORTNESS OF BREATH Aspirin (Asa -) 81 mg PO DAILY [facility] Last Admin: 05/09/20 09:21 Dose: 81 mg Documented by: Atorvastatin Calcium (Lipitor -) 80 mg PO HS [facility] Last Admin: 05/08/20 21:30 Dose: 80 mg Documented by: Heparin Sodium (Porcine) (Heparin -) 5,000 unit SQ TID [facility] Last Admin: 05/09/20 05:55 Dose: 5,000 unit Documented by: Potassium Phosphate 15 mm/ (Sodium Chloride) 255 mls @ 63.75 mls/hr IVPB ONCE ONE Stop: 05/09/20 13:59 Last Admin: 05/09/20 11:25 Dose: 63.75 mls/hr Documented by: Lisinopril (Prinivil) 10 mg PO DAILY [facility] Last Admin: 05/09/20 09:21 Dose: 10 mg Documented by: Metoprolol Succinate (Toprol Xl -) 25 mg PO DAILY [facility] Last Admin: 05/09/20 09:21 Dose: 25 mg Documented by: Olanzapine (Zyprexa -) 5 mg PO HS [facility] Last Admin: 05/08/20 21:30 Dose: 5 mg Documented by: Pantoprazole Sodium (Protonix Iv) 40 mg IVPUSH DAILY [facility] Last Admin: 05/09/20 09:21 Dose: 40 mg Documented by: Polyethylene Glycol (Miralax (For Daily Use) -) 17 gm PO BID PRN PRN Reason: CONSTIPATION ASSESSMENT AND PLAN: 74 year old man with PMHx of HTN, HLD, carotid stents, pacemaker placement, 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 #Acute respiratory failure 2/2 to pneumonia likely aspiration resolved titrating O2 down as tolerated abx completed aspiration precautions, fall precautions replete electrolytes PRN dysphagea/chopped diet, tolerating well off tele Pulmonary consult appreciated Nephrology consult appreciated case discussed with consults nut packer on board recommendations appreciated demand ischemia thrombocytopenia, Resolved UDAY SBO ( improving on repeated KUB, added miralax, still no BM, GI consult appreciated) HTN HLD BPH Heparin 5000u TID
--- NOTE | 2020-05-09 12:51 | PN ---
Progress Note, Physician History of Present Illness: Pt seen and examined at bedside. He is awake and alert. He feels that his breathing is improved. - Current Medication List Current Medications: Active Medications Acetaminophen (Tylenol -) 650 mg PO Q6H PRN PRN Reason: Fever Or Pain Albuterol/Ipratropium (Duoneb -) 1 amp NEB Q6H PRN PRN Reason: SHORTNESS OF BREATH Aspirin (Asa -) 81 mg PO DAILY [facility] Last Admin: 05/09/20 09:21 Dose: 81 mg Documented by: Atorvastatin Calcium (Lipitor -) 80 mg PO HS [facility] Last Admin: 05/08/20 21:30 Dose: 80 mg Documented by: Heparin Sodium (Porcine) (Heparin -) 5,000 unit SQ TID [facility] Last Admin: 05/09/20 05:55 Dose: 5,000 unit Documented by: Potassium Phosphate 15 mm/ (Sodium Chloride) 255 mls @ 63.75 mls/hr IVPB ONCE ONE Stop: 05/09/20 13:59 Last Admin: 05/09/20 11:25 Dose: 63.75 mls/hr Documented by: Lisinopril (Prinivil) 10 mg PO DAILY [facility] Last Admin: 05/09/20 09:21 Dose: 10 mg Documented by: Metoprolol Succinate (Toprol Xl -) 25 mg PO DAILY [facility] Last Admin: 05/09/20 09:21 Dose: 25 mg Documented by: Olanzapine (Zyprexa -) 5 mg PO HS [facility] Last Admin: 05/08/20 21:30 Dose: 5 mg Documented by: Pantoprazole Sodium (Protonix Iv) 40 mg IVPUSH DAILY [facility] Last Admin: 05/09/20 09:21 Dose: 40 mg Documented by: Polyethylene Glycol (Miralax (For Daily Use) -) 17 gm PO BID PRN PRN Reason: CONSTIPATION - Objective Vital Signs: Vital Signs Temperature 98.7 F 05/09/20 09:22 Pulse Rate 65 05/09/20 09:22 Respiratory Rate 18 05/09/20 09:22 Blood Pressure 123/79 05/09/20 09:22 O2 Sat by Pulse Oximetry (%) 95 05/09/20 09:22 Constitutional: Yes: Calm Eyes: Yes: Conjunctiva Clear HENT: Yes: Atraumatic Cardiovascular: Yes: S1, S2 Respiratory: Yes: CTA Bilaterally, On Nasal O2 Gastrointestinal: Yes: Soft Genitourinary: Yes: Incontinence Musculoskeletal: Yes: WNL Edema: No Neurological: Yes: Oriented Psychiatric: Yes: Oriented Labs: CBC, BMP 05/09/20 05:55 05/09/20 05:55 INR, PTT INR 0.99 (0.83-1.09) 05/02/20 03:55 Problem List - Problems (1) UDAY (acute kidney injury) Code(s): N17.9 - ACUTE KIDNEY FAILURE, UNSPECIFIED (2) Aspiration pneumonia Code(s): J69.0 - PNEUMONITIS DUE TO INHALATION OF FOOD AND VOMIT Qualifiers: Aspiration pneumonia type: due to vomit Laterality: left Lung location: unspecified part of lung Qualified Code(s): J69.0 - Pneumonitis due to inhalation of food and vomit (3) Coronary artery disease Code(s): I25.10 - ATHSCL HEART DISEASE OF [place] CORONARY ARTERY W/O ANG PCTRS Qualifiers: Coronary Disease-Associated Artery/Lesion type: [place] artery [place] vs. transplanted heart: [place] heart Associated angina: without angina Qualified Code(s): I25.10 - Atherosclerotic heart disease of [place] coronary artery without angina pectoris Assessment/Plan Current Medications Generic Name Dose Route Start Last Admin Trade Name Freq PRN Reason Stop Dose Admin Acetaminophen 650 mg 05/05/20 16:13 Tylenol - PO Q6H PRN Fever Or Pain Albuterol/Ipratropium 1 amp 05/05/20 22:00 Duoneb - NEB Q6H PRN SHORTNESS OF BREATH Aspirin 81 mg 05/03/20 10:00 05/09/20 09:21 Asa - PO 81 mg DAILY [facility] Administration Atorvastatin Calcium 80 mg 05/02/20 22:00 05/08/20 21:30 Lipitor - PO 80 mg HS [facility] Administration Heparin Sodium (Porcine) 5,000 unit 05/02/20 14:00 05/09/20 05:55 Heparin - SQ 5,000 unit TID [facility] Administration Potassium Phosphate 15 mm/ 255 mls @ 63.75 mls/hr 05/09/20 10:00 05/09/20 11:25 Sodium Chloride IVPB 05/09/20 13:59 63.75 mls/hr ONCE ONE Administration 15 MM/4 HR Lisinopril 10 mg 05/07/20 10:00 05/09/20 09:21 Prinivil PO 10 mg DAILY [facility] Administration Metoprolol Succinate 25 mg 05/03/20 10:00 05/09/20 09:21 Toprol Xl - PO 25 mg DAILY [facility] Administration Olanzapine 5 mg 05/05/20 22:00 05/08/20 21:30 Zyprexa - PO 5 mg HS [facility] Administration Pantoprazole Sodium 40 mg 05/02/20 14:15 05/09/20 09:21 Protonix Iv IVPUSH 40 mg DAILY [facility] Administration Polyethylene Glycol 17 gm 05/08/20 08:59 Miralax (For Daily Use) - PO BID PRN CONSTIPATION Impression 1. UDAY 2. resp failure requiring bipap 3. cad with hx of stents 4. elevated ldh 5. hx htn 6. vomiting 7. aspiration PNA 8. bph 9. hld Plan - cont to monitor renal function - oxygen requirements are improved - replace lytes - monitor real function - discussed with medical team
--- NOTE | 2020-05-09 12:52 | PN ---
Progress Note (short form) - Note Progress Note: PULMONARY Denies shortness of breath. No fevers recorded. Tolerating pureed diet. Vital Signs Period Temp Pulse Resp BP Sys/Su Pulse Ox Last 24 Hr 97.6 F-98.7 F 63-73 18-18 123-137/67-79 95-97 Gen: NAD at rest Heart: RRR Lung: decreased breath sounds at the bases Abd: soft, nontender Ext: no edema CBC, BMP 05/09/20 05:55 05/09/20 05:55 Active Medications Acetaminophen (Tylenol -) 650 mg PO Q6H PRN PRN Reason: Fever Or Pain Albuterol/Ipratropium (Duoneb -) 1 amp NEB Q6H PRN PRN Reason: SHORTNESS OF BREATH Aspirin (Asa -) 81 mg PO DAILY [facility] Last Admin: 05/09/20 09:21 Dose: 81 mg Documented by: Atorvastatin Calcium (Lipitor -) 80 mg PO HS [facility] Last Admin: 05/08/20 21:30 Dose: 80 mg Documented by: Heparin Sodium (Porcine) (Heparin -) 5,000 unit SQ TID [facility] Last Admin: 05/09/20 05:55 Dose: 5,000 unit Documented by: Potassium Phosphate 15 mm/ (Sodium Chloride) 255 mls @ 63.75 mls/hr IVPB ONCE ONE Stop: 05/09/20 13:59 Last Admin: 05/09/20 11:25 Dose: 63.75 mls/hr Documented by: Lisinopril (Prinivil) 10 mg PO DAILY [facility] Last Admin: 05/09/20 09:21 Dose: 10 mg Documented by: Metoprolol Succinate (Toprol Xl -) 25 mg PO DAILY [facility] Last Admin: 05/09/20 09:21 Dose: 25 mg Documented by: Olanzapine (Zyprexa -) 5 mg PO [facility] Last Admin: 05/08/20 21:30 Dose: 5 mg Documented by: Pantoprazole Sodium (Protonix Iv) 40 mg IVPUSH DAILY [facility] Last Admin: 05/09/20 09:21 Dose: 40 mg Documented by: Polyethylene Glycol (Miralax (For Daily Use) -) 17 gm PO BID PRN PRN Reason: CONSTIPATION A/P Acute Hypoxic Respiratory Failure Pneumonia likely Aspiration CAD +Troponins likely Demand Ischemia LV Diastolic Dysfunction s/p PPM h/o CVA HTN Hypercholesterolemia Anemia/Thrombocytopenia - completed antibiotics - O2 to keep SpO2>90% - inhaled bronchodilators - aspiration precautions - PO as tolerated - DVT prophylaxis
--- NOTE | 2020-05-09 15:17 | PN ---
Progress Note, Physician - Current Medication List Current Medications: Active Medications Acetaminophen (Tylenol -) 650 mg PO Q6H PRN PRN Reason: Fever Or Pain Albuterol/Ipratropium (Duoneb -) 1 amp NEB Q6H PRN PRN Reason: SHORTNESS OF BREATH Aspirin (Asa -) 81 mg PO DAILY [facility] Last Admin: 05/09/20 09:21 Dose: 81 mg Documented by: Atorvastatin Calcium (Lipitor -) 80 mg PO HS [facility] Last Admin: 05/08/20 21:30 Dose: 80 mg Documented by: Heparin Sodium (Porcine) (Heparin -) 5,000 unit SQ TID [facility] Last Admin: 05/09/20 13:13 Dose: 5,000 unit Documented by: Lisinopril (Prinivil) 10 mg PO DAILY [facility] Last Admin: 05/09/20 09:21 Dose: 10 mg Documented by: Metoprolol Succinate (Toprol Xl -) 25 mg PO DAILY [facility] Last Admin: 05/09/20 09:21 Dose: 25 mg Documented by: Olanzapine (Zyprexa -) 5 mg PO HS [facility] Last Admin: 05/08/20 21:30 Dose: 5 mg Documented by: Pantoprazole Sodium (Protonix Iv) 40 mg IVPUSH DAILY [facility] Last Admin: 05/09/20 09:21 Dose: 40 mg Documented by: Polyethylene Glycol (Miralax (For Daily Use) -) 17 gm PO BID PRN PRN Reason: CONSTIPATION - Objective Vital Signs: Vital Signs Temperature 98.1 F 05/09/20 14:36 Pulse Rate 69 05/09/20 14:36 Respiratory Rate 18 05/09/20 14:36 Blood Pressure 140/70 05/09/20 14:36 O2 Sat by Pulse Oximetry (%) 96 05/09/20 14:36 Labs: CBC, BMP 05/09/20 05:55 05/09/20 05:55 INR, PTT INR 0.99 (0.83-1.09) 05/02/20 03:55
--- NOTE | 2020-05-09 15:17 | PN ---
Physical Exam: SUBJECTIVE: Patient seen and examined. No complaints. Weaned down to OBJECTIVE: Vital Signs Period Temp Pulse Resp BP Sys/Su Pulse Ox Last 24 Hr 98.1 F-98.7 F 63-73 18-18 123-140/70-79 95-96 GENERAL: The patient is awake, alert, and fully oriented, in no acute distress. HEAD: Normal with no signs of trauma. EYES: PERRL, extraocular movements intact, sclera anicteric, conjunctiva clear. No ptosis. ENT: Ears normal, nares patent, oropharynx clear without exudates, moist mucous membranes. NECK: Trachea midline, full range of motion, supple. LUNGS: Breath sounds equal, clear to auscultation bilaterally, no wheezes, no crackles, no accessory muscle use. HEART: Regular rate and rhythm, S1, S2 without murmur, rub or gallop. ABDOMEN: Soft, nontender, nondistended, normoactive bowel sounds, no guarding, no rebound, no hepatosplenomegaly, no masses. EXTREMITIES: 2+ pulses, warm, well-perfused, no edema. NEUROLOGICAL: Cranial nerves II through XII grossly intact. Normal speech, gait not observed. PSYCH: Normal mood, normal affect. SKIN: Warm, dry, normal turgor, no rashes or lesions noted Laboratory Results - last 24 hr 05/09/20 05/09/20 05:55 05:55 WBC 9.1 RBC 3.74 L Hgb 11.6 L Hct 34.4 L MCV 92.2 MCH 31.1 MCHC 33.7 RDW 14.0 Plt Count 121 L MPV 12.1 H Sodium 136 Potassium 4.5 Chloride 102 Carbon Dioxide 26 Anion Gap 7 L BUN 19.1 H Creatinine 0.8 Est GFR (CKD-EPI)AfAm 102.71 Est GFR (CKD-EPI)NonAf 88.62 Random Glucose 86 Calcium 7.5 L Phosphorus 2.2 L Magnesium 2.1 Total Bilirubin 0.6 AST 42 H ALT 64 H Alkaline Phosphatase 94 Total Protein 4.9 L Albumin 2.1 L Active Medications Generic Name Dose Route Start Last Admin Trade Name Freq PRN Reason Stop Dose Admin Acetaminophen 650 mg 05/05/20 16:13 Tylenol - PO Q6H PRN Fever Or Pain Albuterol/Ipratropium 1 amp 05/05/20 22:00 Duoneb - NEB Q6H PRN SHORTNESS OF BREATH Aspirin 81 mg 05/03/20 10:00 05/09/20 09:21 Asa - PO 81 mg DAILY [facility] Administration Atorvastatin Calcium 80 mg 05/02/20 22:00 05/08/20 21:30 Lipitor - PO 80 mg HS [facility] Administration Heparin Sodium (Porcine) 5,000 unit 05/02/20 14:00 05/09/20 13:13 Heparin - SQ 5,000 unit TID [facility] Administration Lisinopril 10 mg 05/07/20 10:00 05/09/20 09:21 Prinivil PO 10 mg DAILY [facility] Administration Metoprolol Succinate 25 mg 05/03/20 10:00 05/09/20 09:21 Toprol Xl - PO 25 mg DAILY [facility] Administration Olanzapine 5 mg 05/05/20 22:00 05/08/20 21:30 Zyprexa - PO 5 mg HS [facility] Administration Pantoprazole Sodium 40 mg 05/02/20 14:15 05/09/20 09:21 Protonix Iv IVPUSH 40 mg DAILY [facility] Administration Polyethylene Glycol 17 gm 05/08/20 08:59 Miralax (For Daily Use) - PO BID PRN CONSTIPATION ASSESSMENT/PLAN: Pt is a 74 year old male with PMHx of HTN, HLD, carotid stents, pacemaker placement, 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 On restraints due to combative. #Acute respiratory failure 2/2 to pneumonia likely aspiration -Titrating O2 down as tolerated, currently on 5L NC -completed ABx course -chest CT reviewed -requires O2 home -SNF for further rehab #UDAY -Resolved -renal consulted #SBO -improved on imaging -GI consult appreciated #Elevated troponin -Downtrended -Per cardio, no need for heparin or intervention #Hx of HTN -Continue metoprolol, lisinopril #Hx of HLD -Continue lipitor #Hx of BPH -Continue flomax FEN -NS 50cc/hr -Monitor electrolytes -Dysphagia diet PPx Heparin 5000u TID Dispo Admitted to tele. On 5L NC, downgraded. ABx course completed (meropenem). Visit type - Emergency Visit Emergency Visit: Yes ED Registration Date: 05/02/20 Care time: The patient presented to the Emergency Department on the above date and was hospitalized for further evaluation of their emergent condition. - New Patient This patient is new to me today: No - Critical Care Critical Care patient: No - Medication Review Med list reviewed for High Risk Meds patients 65 and older: Yes ATTENDING PHYSICIAN STATEMENT I saw and evaluated the patient. I reviewed the resident's note and discussed the case with the resident. I agree with the resident's findings and plan as documented. SUBJECTIVE: OBJECTIVE: ASSESSMENT AND PLAN:
[2020-05-09] MEDS: OLANZapine 5 MG TABLET PO SCH (21:36)
[2020-05-09] MEDS: ATORVASTATIN CA 80 MG TABLET (FP) PO SCH (21:36)
[2020-05-10] MEDS: HEPARIN NA (PORCINE) 5,000 UNITS/ML 1ML VIAL SQ SCH ×2 (05:39→13:30)
--- NOTE | 2020-05-10 07:34 | PN ---
Progress Note, Physician History of Present Illness: PULMONARY ALERT,NO DISTRESS,ON NASAL O2 - Current Medication List Current Medications: Active Medications Acetaminophen (Tylenol -) 650 mg PO Q6H PRN PRN Reason: Fever Or Pain Albuterol/Ipratropium (Duoneb -) 1 amp NEB Q6H PRN PRN Reason: SHORTNESS OF BREATH Aspirin (Asa -) 81 mg PO DAILY [facility] Last Admin: 05/09/20 09:21 Dose: 81 mg Documented by: Atorvastatin Calcium (Lipitor -) 80 mg PO HS [facility] Last Admin: 05/09/20 21:36 Dose: 80 mg Documented by: Heparin Sodium (Porcine) (Heparin -) 5,000 unit SQ TID [facility] Last Admin: 05/10/20 05:39 Dose: 5,000 unit Documented by: Lisinopril (Prinivil) 10 mg PO DAILY [facility] Last Admin: 05/09/20 09:21 Dose: 10 mg Documented by: Metoprolol Succinate (Toprol Xl -) 25 mg PO DAILY [facility] Last Admin: 05/09/20 09:21 Dose: 25 mg Documented by: Olanzapine (Zyprexa -) 5 mg PO HS [facility] Last Admin: 05/09/20 21:36 Dose: 5 mg Documented by: Pantoprazole Sodium (Protonix Iv) 40 mg IVPUSH DAILY [facility] Last Admin: 05/09/20 09:21 Dose: 40 mg Documented by: Polyethylene Glycol (Miralax (For Daily Use) -) 17 gm PO BID PRN PRN Reason: CONSTIPATION - Objective Vital Signs: Vital Signs Temperature 98.1 F 05/10/20 06:00 Pulse Rate 73 05/10/20 06:00 Respiratory Rate 18 05/10/20 06:00 Blood Pressure 123/71 05/10/20 06:00 O2 Sat by Pulse Oximetry (%) 95 05/10/20 06:00 Constitutional: Yes: Well Nourished, Calm Eyes: Yes: WNL HENT: Yes: WNL Neck: Yes: WNL Cardiovascular: Yes: Regular Rate and Rhythm, S1, S2 Respiratory: Yes: Diminished Gastrointestinal: Yes: Normal Bowel Sounds, Soft Extremities: Yes: WNL Edema: No Labs: CBC, BMP Problem List - Problems (1) Acute respiratory failure with hypoxia and hypercapnia Code(s): J96.01 - ACUTE RESPIRATORY FAILURE WITH HYPOXIA; J96.02 - ACUTE RESPIRATORY FAILURE WITH HYPERCAPNIA (2) UDAY (acute kidney injury) Code(s): N17.9 - ACUTE KIDNEY FAILURE, UNSPECIFIED (3) Aspiration pneumonia Code(s): J69.0 - PNEUMONITIS DUE TO INHALATION OF FOOD AND VOMIT Qualifiers: Aspiration pneumonia type: due to vomit Laterality: left Lung location: unspecified part of lung Qualified Code(s): J69.0 - Pneumonitis due to inhalation of food and vomit (4) Coronary artery disease Code(s): I25.10 - ATHSCL HEART DISEASE OF [place] CORONARY ARTERY W/O ANG PCTRS Qualifiers: Coronary Disease-Associated Artery/Lesion type: [place] artery [place] vs. transplanted heart: [place] heart Associated angina: without angina Qualified Code(s): I25.10 - Atherosclerotic heart disease of [place] coronary artery without angina pectoris (5) Demand ischemia Code(s): I24.8 - OTHER FORMS OF ACUTE ISCHEMIC HEART DISEASE (6) Elevated troponin I level Code(s): R79.89 - OTHER SPECIFIED ABNORMAL FINDINGS OF BLOOD CHEMISTRY (7) Hyperlipidemia Code(s): E78.5 - HYPERLIPIDEMIA, UNSPECIFIED Qualifiers: Hyperlipidemia type: pure hypercholesterolemia Qualified Code(s): E78.00 - Pure hypercholesterolemia, unspecified; E78.0 - Pure hypercholesterolemia (8) Hypertension Code(s): I10 - ESSENTIAL (PRIMARY) HYPERTENSION Qualifiers: Hypertension type: essential hypertension Qualified Code(s): I10 - Essential (primary) hypertension (9) PNA (pneumonia) Code(s): J18.9 - PNEUMONIA, UNSPECIFIED ORGANISM Qualifiers: Pneumonia type: due to unspecified organism Laterality: bilateral Lung location: unspecified part of lung Qualified Code(s): J18.9 - Pneumonia, unspecified organism (10) Cerebrovascular accident (CVA) Code(s): I63.9 - CEREBRAL INFARCTION, UNSPECIFIED Qualifiers: CVA mechanism: occlusion Precerebral and cerebral artery: carotid artery Laterality of affected vessel: left Qualified Code(s): I63.232 - Cerebral infarction due to unspecified occlusion or stenosis of left carotid arteries Assessment/Plan IMP ACUTE HYPOXEMIC/HYPERCAPNEIC RESPIRATORY FAILURE improving LIKELY ASPIRATION UDAY IMPROVING + TROPONIN LIKELY DEMAND ISCHEMIA ELEVATED D-DIMER NON-SPECIFIC HTN H/O CVA ASHD S/P PPM HLD S/P CAROTID STENTS LACTIC ACIDOSIS CORRECTED PLAN SUPPLEMENTAL O2 TO MAINTAIN O2 SAT 90% NIPPV NEEDED ABX completed INHALED BRONCHODILATORS ASPIRATION PRECAUTIONS MONITOR LYTES,RENAL FUNCTION F/U CHEST X-RAYS DR FRASER Problem List - Problems (1) Acute respiratory failure with hypoxia and hypercapnia Code(s): J96.01 - ACUTE RESPIRATORY FAILURE WITH HYPOXIA; J96.02 - ACUTE RESPIRATORY FAILURE WITH HYPERCAPNIA (2) UDAY (acute kidney injury) Code(s): N17.9 - ACUTE KIDNEY FAILURE, UNSPECIFIED (3) Aspiration pneumonia Code(s): J69.0 - PNEUMONITIS DUE TO INHALATION OF FOOD AND VOMIT Qualifiers: Aspiration pneumonia type: due to vomit Laterality: left Lung location: unspecified part of lung Qualified Code(s): J69.0 - Pneumonitis due to inhalation of food and vomit (4) Coronary artery disease Code(s): I25.10 - ATHSCL HEART DISEASE OF [place] CORONARY ARTERY W/O ANG PCTRS Qualifiers: Coronary Disease-Associated Artery/Lesion type: [place] artery [place] vs. transplanted heart: [place] heart Associated angina: without angina Qualified Code(s): I25.10 - Atherosclerotic heart disease of [place] coronary artery without angina pectoris (5) Demand ischemia Code(s): I24.8 - OTHER FORMS OF ACUTE ISCHEMIC HEART DISEASE (6) Elevated troponin I level Code(s): R79.89 - OTHER SPECIFIED ABNORMAL FINDINGS OF BLOOD CHEMISTRY (7) Hyperlipidemia Code(s): E78.5 - HYPERLIPIDEMIA, UNSPECIFIED Qualifiers: Hyperlipidemia type: pure hypercholesterolemia Qualified Code(s): E78.00 - Pure hypercholesterolemia, unspecified; E78.0 - Pure hypercholesterolemia (8) Hypertension Code(s): I10 - ESSENTIAL (PRIMARY) HYPERTENSION Qualifiers: Hypertension type: essential hypertension Qualified Code(s): I10 - Essential (primary) hypertension (9) PNA (pneumonia) Code(s): J18.9 - PNEUMONIA, UNSPECIFIED ORGANISM Qualifiers: Pneumonia type: due to unspecified organism Laterality: bilateral Lung location: unspecified part of lung Qualified Code(s): J18.9 - Pneumonia, unspecified organism (10) Cerebrovascular accident (CVA) Code(s): I63.9 - CEREBRAL INFARCTION, UNSPECIFIED Qualifiers: CVA mechanism: occlusion Precerebral and cerebral artery: carotid artery Laterality of affected vessel: left Qualified Code(s): I63.232 - Cerebral infarction due to unspecified occlusion or stenosis of left carotid arteries
[2020-05-10] MEDS: ASPIRIN 81 MG CHEWABLE TABLETS PO SCH (10:03)
[2020-05-10] MEDS: PANTOPRAZOLE SODIUM 40 MG VIAL IVPUSH SCH (10:03)
[2020-05-10] MEDS: LISINOPRIL 10 MG TABLET (FP) PO SCH (10:03)
[2020-05-10] MEDS: metoPROLOL SUCCINATE 25 MG TAB.SR.24H (FP) PO SCH (10:03)
--- NOTE | 2020-05-10 10:10 | PN ---
Progress Note, CUSTOMER CARE TEAM COACH - Note Progress Note: Selected Entries 05/07/20 05/07/20 05/07/20 00:48 02:00 05:20 Breakfast Diet Tolerated Lunch Supper Temperature Pulse Rate Blood Pressure O2 Sat by Pulse 100 96 98 Oximetry (%) Oxygen Delivery Method 05/07/20 05/07/20 05/07/20 05:58 09:00 10:00 Breakfast Diet Tolerated Lunch Supper Temperature Pulse Rate Blood Pressure O2 Sat by Pulse 98 96 96 Oximetry (%) Oxygen Delivery Venturi Mask Method 05/07/20 05/07/20 05/07/20 14:00 15:00 18:00 Breakfast 100% Diet Tolerated [place] Lunch 75% Supper 50% Temperature Pulse Rate Blood Pressure O2 Sat by Pulse 98 Oximetry (%) Oxygen Delivery Method 05/07/20 05/08/20 05/08/20 21:00 09:00 10:00 Breakfast Diet Tolerated Lunch Supper Temperature Pulse Rate Blood Pressure O2 Sat by Pulse 99 95 95 Oximetry (%) Oxygen Delivery Venturi Mask Nasal Cannula Method 05/08/20 05/08/20 05/08/20 11:13 14:00 15:00 Breakfast 75% Diet Tolerated Fair Lunch 75% Supper Temperature Pulse Rate Blood Pressure O2 Sat by Pulse 92 L 97 Oximetry (%) Oxygen Delivery Method 05/08/20 05/08/20 05/08/20 18:00 20:42 21:00 Breakfast Diet Tolerated Lunch Supper Temperature Pulse Rate Blood Pressure O2 Sat by Pulse 95 95 95 Oximetry (%) Oxygen Delivery Method 05/09/20 05/09/20 06:00 09:22 Breakfast Diet Tolerated Lunch Supper Temperature 98.6 F 98.7 F Pulse Rate 73 65 Blood Pressure 137/71 123/79 O2 Sat by Pulse Oximetry (%) Oxygen Delivery Method Laboratory Tests 05/09/20 05:55 WBC 9.1 Improved pulmonary function. IMP-Intermittent cough persists on thin liquid Pt now downgraded to nectar thick liquid. Continue Dys ground Monitor PO tolerance, congestion, fever. I set him up, able to self feed puree/nectar well. Plan is for d/c to [facility]. Suggest continued swallowing rehab MBS as out pt when indicated to advance PO diet with safety.
--- NOTE | 2020-05-10 12:28 | PN ---
Progress Note, Physician History of Present Illness: Pt seen and examined at bedside. He is awake and appears comfortable. - Current Medication List Current Medications: Active Medications Acetaminophen (Tylenol -) 650 mg PO Q6H PRN PRN Reason: Fever Or Pain Albuterol/Ipratropium (Duoneb -) 1 amp NEB Q6H PRN PRN Reason: SHORTNESS OF BREATH Aspirin (Asa -) 81 mg PO DAILY [facility] Last Admin: 05/10/20 10:03 Dose: 81 mg Documented by: Atorvastatin Calcium (Lipitor -) 80 mg PO HS [facility] Last Admin: 05/09/20 21:36 Dose: 80 mg Documented by: Heparin Sodium (Porcine) (Heparin -) 5,000 unit SQ TID [facility] Last Admin: 05/10/20 05:39 Dose: 5,000 unit Documented by: Lisinopril (Prinivil) 10 mg PO DAILY [facility] Last Admin: 05/10/20 10:03 Dose: 10 mg Documented by: Metoprolol Succinate (Toprol Xl -) 25 mg PO DAILY [facility] Last Admin: 05/10/20 10:03 Dose: 25 mg Documented by: Olanzapine (Zyprexa -) 5 mg PO HS [facility] Last Admin: 05/09/20 21:36 Dose: 5 mg Documented by: Pantoprazole Sodium (Protonix Iv) 40 mg IVPUSH DAILY [facility] Last Admin: 05/10/20 10:03 Dose: 40 mg Documented by: Polyethylene Glycol (Miralax (For Daily Use) -) 17 gm PO BID PRN PRN Reason: CONSTIPATION - Objective Vital Signs: Vital Signs Temperature 98.2 F 05/10/20 10:04 Pulse Rate 73 05/10/20 10:04 Respiratory Rate 18 05/10/20 10:04 Blood Pressure 131/76 05/10/20 10:04 O2 Sat by Pulse Oximetry (%) 91 L 05/10/20 10:04 Constitutional: Yes: Calm Eyes: Yes: Conjunctiva Clear HENT: Yes: Atraumatic Neck: Yes: Supple Cardiovascular: Yes: S1, S2 Respiratory: Yes: CTA Bilaterally Gastrointestinal: Yes: Soft Genitourinary: Yes: WNL Musculoskeletal: Yes: WNL Edema: No Neurological: Yes: Oriented Labs: CBC, BMP 05/09/20 05:55 05/09/20 05:55 INR, PTT INR 0.99 (0.83-1.09) 05/02/20 03:55 Problem List - Problems (1) UDAY (acute kidney injury) Code(s): N17.9 - ACUTE KIDNEY FAILURE, UNSPECIFIED (2) Aspiration pneumonia Code(s): J69.0 - PNEUMONITIS DUE TO INHALATION OF FOOD AND VOMIT Qualifiers: Aspiration pneumonia type: due to vomit Laterality: left Lung location: unspecified part of lung Qualified Code(s): J69.0 - Pneumonitis due to inhalation of food and vomit (3) Coronary artery disease Code(s): I25.10 - ATHSCL HEART DISEASE OF [place] CORONARY ARTERY W/O ANG PCTRS Qualifiers: Coronary Disease-Associated Artery/Lesion type: [place] artery [place] vs. transplanted heart: [place] heart Associated angina: without angina Qualified Code(s): I25.10 - Atherosclerotic heart disease of [place] coronary artery without angina pectoris Assessment/Plan Current Medications Generic Name Dose Route Start Last Admin Trade Name Freq PRN Reason Stop Dose Admin Acetaminophen 650 mg 05/05/20 16:13 Tylenol - PO Q6H PRN Fever Or Pain Albuterol/Ipratropium 1 amp 05/05/20 22:00 Duoneb - NEB Q6H PRN SHORTNESS OF BREATH Aspirin 81 mg 05/03/20 10:00 05/10/20 10:03 Asa - PO 81 mg DAILY [facility] Administration Atorvastatin Calcium 80 mg 05/02/20 22:00 05/09/20 21:36 Lipitor - PO 80 mg HS [facility] Administration Heparin Sodium (Porcine) 5,000 unit 05/02/20 14:00 05/10/20 05:39 Heparin - SQ 5,000 unit TID [facility] Administration Lisinopril 10 mg 05/07/20 10:00 05/10/20 10:03 Prinivil PO 10 mg DAILY [facility] Administration Metoprolol Succinate 25 mg 05/03/20 10:00 05/10/20 10:03 Toprol Xl - PO 25 mg DAILY [facility] Administration Olanzapine 5 mg 05/05/20 22:00 05/09/20 21:36 Zyprexa - PO 5 mg HS [facility] Administration Pantoprazole Sodium 40 mg 05/02/20 14:15 05/10/20 10:03 Protonix Iv IVPUSH 40 mg DAILY [facility] Administration Polyethylene Glycol 17 gm 05/08/20 08:59 Miralax (For Daily Use) - PO BID PRN CONSTIPATION Impression 1. UDAY 2. resp failure requiring bipap 3. cad with hx of stents 4. elevated ldh 5. hx htn 6. vomiting 7. aspiration PNA 8. bph 9. hld Plan - renal function had stabilized - repeat labs in am - monitor pulse ox and oxygen requirements - avoid nsaids - swallow alma rosa
--- NOTE | 2020-05-10 12:34 | PN ---
Progress Note, Physician Chief Complaint: Events noted Denies chest pain or palpitations History of Present Illness: Patient was seen and examined. Awake and alert. Chart was reviewed - Current Medication List Current Medications: Active Medications Acetaminophen (Tylenol -) 650 mg PO Q6H PRN PRN Reason: Fever Or Pain Albuterol/Ipratropium (Duoneb -) 1 amp NEB Q6H PRN PRN Reason: SHORTNESS OF BREATH Aspirin (Asa -) 81 mg PO DAILY [facility] Last Admin: 05/10/20 10:03 Dose: 81 mg Documented by: Atorvastatin Calcium (Lipitor -) 80 mg PO HS [facility] Last Admin: 05/09/20 21:36 Dose: 80 mg Documented by: Heparin Sodium (Porcine) (Heparin -) 5,000 unit SQ TID [facility] Last Admin: 05/10/20 05:39 Dose: 5,000 unit Documented by: Lisinopril (Prinivil) 10 mg PO DAILY [facility] Last Admin: 05/10/20 10:03 Dose: 10 mg Documented by: Metoprolol Succinate (Toprol Xl -) 25 mg PO DAILY [facility] Last Admin: 05/10/20 10:03 Dose: 25 mg Documented by: Olanzapine (Zyprexa -) 5 mg PO HS [facility] Last Admin: 05/09/20 21:36 Dose: 5 mg Documented by: Pantoprazole Sodium (Protonix Iv) 40 mg IVPUSH DAILY [facility] Last Admin: 05/10/20 10:03 Dose: 40 mg Documented by: Polyethylene Glycol (Miralax (For Daily Use) -) 17 gm PO BID PRN PRN Reason: CONSTIPATION - Objective Vital Signs: Vital Signs Temperature 98.2 F 05/10/20 10:04 Pulse Rate 73 05/10/20 10:04 Respiratory Rate 18 05/10/20 10:04 Blood Pressure 131/76 05/10/20 10:04 O2 Sat by Pulse Oximetry (%) 91 L 05/10/20 10:04 Neck: Yes: Supple Cardiovascular: Yes: Regular Rate and Rhythm, S1, S2 Respiratory: Yes: Diminished Gastrointestinal: Yes: Normal Bowel Sounds, Soft. No: Tenderness Edema: No Additional Findings/Remarks: - Review of Systems Constitutional: denies: Chills, Fever Cardiovascular: (+) Shortness of Breath. denies: Chest Pain, Palpitations Respiratory: (+) SOB. denies: Cough, Hemoptysis, Orthopnea, PND Gastrointestinal: denies: Abdominal Pain, Constipation, Diarrhea, Melena, Nausea, Rectal Bleeding, Vomiting Musculoskeletal: denies: Joint Pain. denies: Back Pain Neurological: denies: Dizziness, Headache. denies: Change in Speech, Confusion, Seizure, Syncope, Unsteady Gait Labs: CBC, BMP 05/09/20 05:55 05/09/20 05:55 Problem List - Problems (1) UDAY (acute kidney injury) Code(s): N17.9 - ACUTE KIDNEY FAILURE, UNSPECIFIED (2) Acute respiratory failure with hypoxia and hypercapnia Code(s): J96.01 - ACUTE RESPIRATORY FAILURE WITH HYPOXIA; J96.02 - ACUTE RESPIRATORY FAILURE WITH HYPERCAPNIA (3) Aspiration pneumonia Code(s): J69.0 - PNEUMONITIS DUE TO INHALATION OF FOOD AND VOMIT Qualifiers: Aspiration pneumonia type: due to vomit Laterality: left Lung location: unspecified part of lung Qualified Code(s): J69.0 - Pneumonitis due to inhalation of food and vomit (4) Coronary artery disease Code(s): I25.10 - ATHSCL HEART DISEASE OF [place] CORONARY ARTERY W/O ANG PCTRS Qualifiers: Coronary Disease-Associated Artery/Lesion type: [place] artery [place] vs. transplanted heart: [place] heart Associated angina: without angina Qualified Code(s): I25.10 - Atherosclerotic heart disease of [place] coronary artery without angina pectoris (5) Demand ischemia Code(s): I24.8 - OTHER FORMS OF ACUTE ISCHEMIC HEART DISEASE (6) Hyperlipidemia Code(s): E78.5 - HYPERLIPIDEMIA, UNSPECIFIED Qualifiers: Hyperlipidemia type: pure hypercholesterolemia Qualified Code(s): E78.00 - Pure hypercholesterolemia, unspecified; E78.0 - Pure hypercholesterolemia (7) Hypertension Code(s): I10 - ESSENTIAL (PRIMARY) HYPERTENSION Qualifiers: Hypertension type: essential hypertension Qualified Code(s): I10 - Essential (primary) hypertension (8) Cerebrovascular accident (CVA) Code(s): I63.9 - CEREBRAL INFARCTION, UNSPECIFIED Qualifiers: CVA mechanism: occlusion Precerebral and cerebral artery: carotid artery Laterality of affected vessel: left Qualified Code(s): I63.232 - Cerebral infarction due to unspecified occlusion or stenosis of left carotid arteries Assessment/Plan 1. Acute hypoxic respiratory failure suspect aspiration pneumonia 2. CAD with demand ischemia 3. Diastolic LV dysfunction with clinical class 0 NYHA classification heart failure 4. Carotid stents 5. AV block, post pacemaker placement 6. History of CVA with right residual weakness and aphasia 7. UDAY 8. Hypertension 9. Hyperlipidemia 10. BPH 11. Partial small bowel obstruction PLAN: 1. Continue BIPAP, bronchodilator, O2 as needed 2. GI and DVT prophylaxis 3. Continue Lisinopril 10 mg QD as tolerated. Continue Toprol XL 25 mg QD, Lipitor 80 mg QD and ASA 81 mg QD 4. Echocardiography report noted (normal LVEF 60-65%, mild to moderate MR, mild ) Further cardiac plans to follow Moses Bassett MD
--- NOTE | 2020-05-10 14:00 | PN ---
Progress Note, Physician - Current Medication List Current Medications: Active Medications Acetaminophen (Tylenol -) 650 mg PO Q6H PRN PRN Reason: Fever Or Pain Albuterol/Ipratropium (Duoneb -) 1 amp NEB Q6H PRN PRN Reason: SHORTNESS OF BREATH Aspirin (Asa -) 81 mg PO DAILY [facility] Last Admin: 05/10/20 10:03 Dose: 81 mg Documented by: Atorvastatin Calcium (Lipitor -) 80 mg PO HS [facility] Last Admin: 05/09/20 21:36 Dose: 80 mg Documented by: Heparin Sodium (Porcine) (Heparin -) 5,000 unit SQ TID [facility] Last Admin: 05/10/20 13:30 Dose: 5,000 unit Documented by: Lisinopril (Prinivil) 10 mg PO DAILY [facility] Last Admin: 05/10/20 10:03 Dose: 10 mg Documented by: Metoprolol Succinate (Toprol Xl -) 25 mg PO DAILY [facility] Last Admin: 05/10/20 10:03 Dose: 25 mg Documented by: Olanzapine (Zyprexa -) 5 mg PO HS [facility] Last Admin: 05/09/20 21:36 Dose: 5 mg Documented by: Pantoprazole Sodium (Protonix Iv) 40 mg IVPUSH DAILY [facility] Last Admin: 05/10/20 10:03 Dose: 40 mg Documented by: Polyethylene Glycol (Miralax (For Daily Use) -) 17 gm PO BID PRN PRN Reason: CONSTIPATION - Objective Vital Signs: Vital Signs Temperature 98.2 F 05/10/20 10:04 Pulse Rate 73 05/10/20 10:04 Respiratory Rate 18 05/10/20 10:04 Blood Pressure 131/76 05/10/20 10:04 O2 Sat by Pulse Oximetry (%) 91 L 05/10/20 10:04 Labs: CBC, BMP 05/09/20 05:55 05/09/20 05:55 INR, PTT INR 0.99 (0.83-1.09) 05/02/20 03:55
--- NOTE | 2020-05-10 14:53 | PN ---
Teaching Attending Note Name of Resident: Melissa Henao ATTENDING PHYSICIAN STATEMENT I saw and evaluated the patient. I reviewed the resident's note and discussed the case with the resident. I agree with the resident's findings and plan as documented. SUBJECTIVE: Unable to participate fully in medical interview. Denies any medical complaints. OBJECTIVE: Afebrile, Hemodynamically stable. AAO x 1. Follows instructions/directions. Last Vital Signs Temp Pulse Resp BP Pulse Ox 98.2 F 73 18 131/76 95 % on 2L via NC 05/10/20 10:04 05/10/20 10:04 05/10/20 10:04 05/10/20 10:04 05/10/20 10:04 HEENT - Atraumatic, normocephalic. Heart - S1, S2, RRR Lungs - decreased air entry at bases. Abdomen - Soft, non-tender. Bowel Sounds normal. Extremities - no edema, no calf tenderness Neuro - AAO x 1. Tone/Power normal all extremities Laboratory Results - last 24 hr 05/09/20 15:05 SARS-CoV-2 (PCR) Negative Current Medications Generic Name Dose Route Start Last Admin Trade Name Freq PRN Reason Stop Dose Admin Acetaminophen 650 mg 05/05/20 16:13 Tylenol - PO Q6H PRN Fever Or Pain Albuterol/Ipratropium 1 amp 05/05/20 22:00 Duoneb - NEB Q6H PRN SHORTNESS OF BREATH Aspirin 81 mg 05/03/20 10:00 05/10/20 10:03 Asa - PO 81 mg DAILY [facility] Administration Atorvastatin Calcium 80 mg 05/02/20 22:00 05/09/20 21:36 Lipitor - PO 80 mg HS [facility] Administration Lisinopril 10 mg 05/07/20 10:00 05/10/20 10:03 Prinivil PO 10 mg DAILY [facility] Administration Metoprolol Succinate 25 mg 05/03/20 10:00 05/10/20 10:03 Toprol Xl - PO 25 mg DAILY [facility] Administration Olanzapine 5 mg 05/05/20 22:00 05/09/20 21:36 Zyprexa - PO 5 mg HS [facility] Administration Pantoprazole Sodium 40 mg 05/02/20 14:15 05/10/20 10:03 Protonix Iv IVPUSH 40 mg DAILY [facility] Administration Polyethylene Glycol 17 gm 05/08/20 08:59 Miralax (For Daily Use) - PO BID PRN CONSTIPATION Home Medications Medication Instructions Recorded Metoprolol Succinate 25 mg PO DAILY 08/07/18 Olanzapine 5 mg PO HS 08/07/18 Aspirin [ASA -] 81 mg PO DAILY 05/02/20 Atorvastatin Ca [Lipitor] 80 mg PO HS 05/02/20 Tamsulosin HCl 0.4 mg PO HS 05/02/20 Lisinopril [Prinivil] 10 mg PO DAILY #30 tablet 05/10/20 ASSESSMENT AND PLAN: 74 year old male with history of Dementia, HTN, HLD, Carotid Stents, s/p pacemaker placement, 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 1. Acute Hypoxic Respiratory Failure secondary to Aspiration Pneumonia CT Chest - bilateral lower lobe consolidation R>L, developing JENN Pneumonia Completed course of Meropenem - afebrile, hemodynamically stable. Pureed diet withnectar thick liquids recommended by Speech therapy. Pulmonary out-patient follow up. 2. ACS, TnI max >4, secondary to demand ischemia as per Cardio Likely underlying CAD Evaluated by Cardio - no in-patient work-up recommended at this time. Echo - LVH, EF 60-65%, Mod MR, Mild . Continue ASA/BB/PAOLA-I/Statin Out-patient Cardiology follow up. 3. UDAY - resolved. Renal US - R Renal Cyst - for out-patient Urology follow up. 4. HTN - continue Metoprolol, Lisinopril 5. HLD - Continue Statin. 6. CVA with residual R sided weakness and Aphasia 7. Dementia with Psychiatric Disturbance - continue Olanzapine 8. BPH - Continue Tamsulosin. DVT Px - Heparin SQ Dispo - medically stable for discharge to SNF.
--- NOTE | 2020-05-10 16:09 | DS ---
Physical Exam: SUBJECTIVE: Patient seen and examined. No acute complaints. Denies fever, chills, SOB. OBJECTIVE: Vital Signs Period Temp Pulse Resp BP Sys/Su Pulse Ox Last 24 Hr 98.0 F-98.2 F 70-77 18-18 110-133/67-90 91-98 PHYSICAL EXAM GENERAL: The patient is awake, alert, and fully oriented, in no acute distress. HEAD: Normal with no signs of trauma. EYES: PERRL, extraocular movements intact, sclera anicteric, conjunctiva clear. ENT: Ears normal, nares patent, oropharynx clear without exudates, moist mucous membranes. NECK: Trachea midline, full range of motion, supple. LUNGS: Breath sounds equal, clear to auscultation bilaterally, no wheezes, no crackles, no accessory muscle use. On 2L nasal cannula. HEART: Regular rate and rhythm, S1, S2 without murmur, rub or gallop. ABDOMEN: Soft, nontender, nondistended, normoactive bowel sounds, no guarding, no rebound, no hepatosplenomegaly, no masses. EXTREMITIES: 2+ pulses, warm, well-perfused, no edema. NEUROLOGICAL: Cranial nerves II through XII grossly intact. Normal speech, gait not observed. PSYCH: Normal mood, normal affect. SKIN: Warm, dry, normal turgor, no rashes or lesions noted. LABS Laboratory Results - last 24 hr 05/09/20 15:05 SARS-CoV-2 (PCR) Negative HOSPITAL COURSE: Date of Admission:05/02/20 Date of Discharge: 05/10/20 Discharge Summary Problems reviewed: Yes Reason For Visit: RESPIRATORY FAILURE,PNEUMONIA Current Active Problems Coronary artery disease (Chronic) Condition: Improved - Instructions Diet, Activity, Other Instructions: You came into the hospital after you vomited, and likely aspirated into your lungs causing a pneumonia. You were treated with antibiotics and your course was completed. You required supplemental oxygen to help you breathe. You will also require oxygen when you go home. Your kidneys were found to not be functioning optimally, and you were given IV fluids which resolved your kidney issues. Your heart had to also work harder than normal, but you were not found to have any problems with your heart. You were also found to have decreased movement of your intestines, which resolved during your stay. [facility] to [facility] your rehab to ensure you are physically stable to ambulate as your baseline before you return home. Please DECREASE your dose from Lisinopril from 15mg to 10mg once daily. You have received a new prescription for the new dose. Please follow up with your primary care physician, Dr. Rios , within 1 week for your overall health management. Please follow up with your nodulizer, Dr. George, within 2 weeks. Please follow up with your general surgeon, Dr. Campo, within 2 weks. Please follow up with your speech and language clinician, Dr. Torres, within 2 weeks. Please follow up with your print color operator, Dr. Garcia, within 2 weeks. Renal Ultrasound showed a R Renal Cyst - for out-patient Urology follow up. If you have any new, changing or worsening symptoms please call 911 or return to the ED. Referrals: Zeyad Rios MD [Primary Care Provider] - 2 Weeks Casper Garcia MD [Staff Physician] - 1 Week Juan David George DO [Staff Physician] - 2 Weeks Compa Gautam MD., [Staff Physician] - 3 Weeks Dax Campo MD [Staff Physician] - 2 Weeks Kimberly Russell MD [Staff Physician] - 2 Weeks Olaf Torres MD [Staff Physician] - 2 Weeks [facility] - Home Medications Comprehensive Discharge Medication List: Ambulatory Orders Metoprolol Succinate 25 mg PO DAILY 08/07/18 Olanzapine 5 mg PO HS 08/07/18 Aspirin [ASA -] 81 mg PO DAILY 05/02/20 Atorvastatin Ca [Lipitor] 80 mg PO HS 05/02/20 Tamsulosin HCl 0.4 mg PO HS 05/02/20 Lisinopril [Prinivil] 10 mg PO DAILY #30 tablet 05/10/20 - Discharge Referral Referred to [facility] No ATTENDING PHYSICIAN STATEMENT I saw and evaluated the patient. I reviewed the resident's note and discussed the case with the resident. I agree with the resident's findings and plan as documented. SUBJECTIVE: OBJECTIVE: ASSESSMENT AND PLAN:
[2020-05-10] MEDS: ATORVASTATIN CA 80 MG TABLET (FP) PO SCH (21:42)
[2020-05-10] MEDS: OLANZapine 5 MG TABLET PO SCH (21:42)
[2020-05-11] MEDS: metoPROLOL SUCCINATE 25 MG TAB.SR.24H (FP) PO SCH (09:50)
[2020-05-11] MEDS: ASPIRIN 81 MG CHEWABLE TABLETS PO SCH (09:50)
[2020-05-11] MEDS: PANTOPRAZOLE SODIUM 40 MG VIAL IVPUSH SCH (09:51)
[2020-05-11] MEDS: LISINOPRIL 10 MG TABLET (FP) PO SCH (09:51)
--- NOTE | 2020-05-11 10:13 | PN ---
Progress Note, Physician History of Present Illness: Pt seen and examined at bedside. He is awake and alert. - Current Medication List Current Medications: Active Medications Acetaminophen (Tylenol -) 650 mg PO Q6H PRN PRN Reason: Fever Or Pain Aspirin (Asa -) 81 mg PO DAILY [facility] Last Admin: 05/11/20 09:50 Dose: 81 mg Documented by: Atorvastatin Calcium (Lipitor -) 80 mg PO [facility] Last Admin: 05/10/20 21:42 Dose: 80 mg Documented by: Lisinopril (Prinivil) 10 mg PO DAILY [facility] Last Admin: 05/11/20 09:51 Dose: 10 mg Documented by: Metoprolol Succinate (Toprol Xl -) 25 mg PO DAILY [facility] Last Admin: 05/11/20 09:50 Dose: 25 mg Documented by: Olanzapine (Zyprexa -) 5 mg PO HS [facility] Last Admin: 05/10/20 21:42 Dose: 5 mg Documented by: Pantoprazole Sodium (Protonix Iv) 40 mg IVPUSH DAILY [facility] Last Admin: 05/11/20 09:51 Dose: 40 mg Documented by: Polyethylene Glycol (Miralax (For Daily Use) -) 17 gm PO BID PRN PRN Reason: CONSTIPATION - Objective Vital Signs: Vital Signs Temperature 97.8 F 05/11/20 08:36 Pulse Rate 67 05/11/20 08:36 Respiratory Rate 19 05/11/20 08:36 Blood Pressure 138/62 05/11/20 08:36 O2 Sat by Pulse Oximetry (%) 94 L 05/11/20 08:37 Constitutional: Yes: Calm Eyes: Yes: Conjunctiva Clear HENT: Yes: Atraumatic Neck: Yes: Supple Cardiovascular: Yes: S1, S2 Respiratory: Yes: CTA Bilaterally Gastrointestinal: Yes: Soft Genitourinary: Yes: Incontinence Musculoskeletal: Yes: WNL Edema: No Neurological: Yes: Oriented Psychiatric: Yes: Oriented Labs: CBC, BMP 05/09/20 05:55 05/09/20 05:55 INR, PTT INR 0.99 (0.83-1.09) 05/02/20 03:55 Problem List - Problems (1) UDAY (acute kidney injury) Code(s): N17.9 - ACUTE KIDNEY FAILURE, UNSPECIFIED (2) Aspiration pneumonia Code(s): J69.0 - PNEUMONITIS DUE TO INHALATION OF FOOD AND VOMIT Qualifiers: Aspiration pneumonia type: due to vomit Laterality: left Lung location: unspecified part of lung Qualified Code(s): J69.0 - Pneumonitis due to inhalation of food and vomit (3) Coronary artery disease Code(s): I25.10 - ATHSCL HEART DISEASE OF [place] CORONARY ARTERY W/O ANG PCTRS Qualifiers: Coronary Disease-Associated Artery/Lesion type: [place] artery [place] vs. transplanted heart: [place] heart Associated angina: without angina Qualified Code(s): I25.10 - Atherosclerotic heart disease of [place] coronary artery without angina pectoris Assessment/Plan Current Medications Generic Name Dose Route Start Last Admin Trade Name Freq PRN Reason Stop Dose Admin Acetaminophen 650 mg 05/05/20 16:13 Tylenol - PO Q6H PRN Fever Or Pain Aspirin 81 mg 05/03/20 10:00 05/11/20 09:50 Asa - PO 81 mg DAILY [facility] Administration Atorvastatin Calcium 80 mg 05/02/20 22:00 05/10/20 21:42 Lipitor - PO 80 mg HS [facility] Administration Lisinopril 10 mg 05/07/20 10:00 05/11/20 09:51 Prinivil PO 10 mg DAILY [facility] Administration Metoprolol Succinate 25 mg 05/03/20 10:00 05/11/20 09:50 Toprol Xl - PO 25 mg DAILY [facility] Administration Olanzapine 5 mg 05/05/20 22:00 05/10/20 21:42 Zyprexa - PO 5 mg HS [facility] Administration Pantoprazole Sodium 40 mg 05/02/20 14:15 05/11/20 09:51 Protonix Iv IVPUSH 40 mg DAILY [facility] Administration Polyethylene Glycol 17 gm 05/08/20 08:59 Miralax (For Daily Use) - PO BID PRN CONSTIPATION Impression 1. UDAY 2. resp failure requiring bipap 3. cad with hx of stents 4. elevated ldh 5. hx htn 6. vomiting 7. aspiration PNA 8. bph 9. hld Plan - no new labs - will need outpt follow up - avoid nephrotoxins - resp status is improved - avoid nsaids
--- NOTE | 2020-05-11 10:38 | PN ---
Progress Note, Physician History of Present Illness: More interactive on NC, denies dyspnea. - Current Medication List Current Medications: Active Medications Acetaminophen (Tylenol -) 650 mg PO Q6H PRN PRN Reason: Fever Or Pain Aspirin (Asa -) 81 mg PO DAILY [facility] Last Admin: 05/11/20 09:50 Dose: 81 mg Documented by: Atorvastatin Calcium (Lipitor -) 80 mg PO [facility] Last Admin: 05/10/20 21:42 Dose: 80 mg Documented by: Lisinopril (Prinivil) 10 mg PO DAILY [facility] Last Admin: 05/11/20 09:51 Dose: 10 mg Documented by: Metoprolol Succinate (Toprol Xl -) 25 mg PO DAILY [facility] Last Admin: 05/11/20 09:50 Dose: 25 mg Documented by: Olanzapine (Zyprexa -) 5 mg PO [facility] Last Admin: 05/10/20 21:42 Dose: 5 mg Documented by: Pantoprazole Sodium (Protonix Iv) 40 mg IVPUSH DAILY [facility] Last Admin: 05/11/20 09:51 Dose: 40 mg Documented by: Polyethylene Glycol (Miralax (For Daily Use) -) 17 gm PO BID PRN PRN Reason: CONSTIPATION - Objective Vital Signs: Vital Signs Temperature 97.8 F 05/11/20 08:36 Pulse Rate 67 05/11/20 08:36 Respiratory Rate 19 05/11/20 08:36 Blood Pressure 138/62 05/11/20 08:36 O2 Sat by Pulse Oximetry (%) 94 L 05/11/20 08:37 Constitutional: Yes: No Distress, Calm Neck: Yes: Supple Cardiovascular: Yes: Regular Rate and Rhythm Respiratory: Yes: Diminished, On Nasal O2 Gastrointestinal: Yes: Normal Bowel Sounds, Soft Edema: No Labs: CBC, BMP 05/09/20 05:55 05/09/20 05:55 INR, PTT INR 0.99 (0.83-1.09) 05/02/20 03:55 - ....Imaging EKG: Report Reviewed Problem List - Problems (1) Aspiration pneumonia Code(s): J69.0 - PNEUMONITIS DUE TO INHALATION OF FOOD AND VOMIT Qualifiers: Aspiration pneumonia type: due to vomit Laterality: left Lung location: unspecified part of lung Qualified Code(s): J69.0 - Pneumonitis due to inhalation of food and vomit (2) Demand ischemia Code(s): I24.8 - OTHER FORMS OF ACUTE ISCHEMIC HEART DISEASE (3) Hyperlipidemia Code(s): E78.5 - HYPERLIPIDEMIA, UNSPECIFIED Qualifiers: Hyperlipidemia type: pure hypercholesterolemia Qualified Code(s): E78.00 - Pure hypercholesterolemia, unspecified; E78.0 - Pure hypercholesterolemia (4) Hypertension Code(s): I10 - ESSENTIAL (PRIMARY) HYPERTENSION Qualifiers: Hypertension type: essential hypertension Qualified Code(s): I10 - Essential (primary) hypertension (5) Coronary artery disease Code(s): I25.10 - ATHSCL HEART DISEASE OF [place] CORONARY ARTERY W/O ANG PCTRS Qualifiers: Coronary Disease-Associated Artery/Lesion type: [place] artery [place] vs. transplanted heart: [place] heart Associated angina: without angina Qualified Code(s): I25.10 - Atherosclerotic heart disease of [place] coronary artery without angina pectoris (6) UDAY (acute kidney injury) Code(s): N17.9 - ACUTE KIDNEY FAILURE, UNSPECIFIED (7) Elevated troponin I level Code(s): R79.89 - OTHER SPECIFIED ABNORMAL FINDINGS OF BLOOD CHEMISTRY (8) Respiratory failure Code(s): J96.90 - RESPIRATORY FAILURE, UNSP, UNSP W HYPOXIA OR HYPERCAPNIA Qualifiers: Chronicity: acute Respiratory failure complication: hypoxia Qualified Code(s): J96.01 - Acute respiratory failure with hypoxia (9) Cerebrovascular accident (CVA) Code(s): I63.9 - CEREBRAL INFARCTION, UNSPECIFIED Qualifiers: CVA mechanism: occlusion Precerebral and cerebral artery: carotid artery Laterality of affected vessel: left Qualified Code(s): I63.232 - Cerebral infarction due to unspecified occlusion or stenosis of left carotid arteries Assessment/Plan 05/03/2020 Echo: Normal LV size and fxn, mild , mild-mod MR 05/04/[address]: L>R lower lobe consolidation, possible JENN PNA 1. Acute hypoxic respiratory failure suspect aspiration pneumonia 2. CAD with demand ischemia 3. Diastolic LV dysfunction with clinical class 0 NYHA classification heart failure 4. Carotid stents 5. AV block, post pacemaker placement 6. History of CVA with right residual weakness and aphasia 7. UDAY resolved 8. Hypertension 9. Hyperlipidemia 10. BPH 11. Partial small bowel obstruction resolved PLAN: 1. Continue O2 as needed, completed abx course 2. GI and DVT prophylaxis 3. Continue Lisinopril 10 mg QD, Toprol XL 25 mg QD, Lipitor 80 mg QD and ASA 81 mg QD 4. Echocardiography report noted (normal LVEF 60-65%, mild to moderate MR, mild ) 5. Dysphagia diet as tolerated 6. D/c planning, eventual f/u in office
--- NOTE | 2020-05-11 11:36 | PN ---
Progress Note, Physician History of Present Illness: stable no new issues - Current Medication List Current Medications: Active Medications Acetaminophen (Tylenol -) 650 mg PO Q6H PRN PRN Reason: Fever Or Pain Aspirin (Asa -) 81 mg PO DAILY [facility] Last Admin: 05/11/20 09:50 Dose: 81 mg Documented by: Atorvastatin Calcium (Lipitor -) 80 mg PO [facility] Last Admin: 05/10/20 21:42 Dose: 80 mg Documented by: Lisinopril (Prinivil) 10 mg PO DAILY [facility] Last Admin: 05/11/20 09:51 Dose: 10 mg Documented by: Metoprolol Succinate (Toprol Xl -) 25 mg PO DAILY [facility] Last Admin: 05/11/20 09:50 Dose: 25 mg Documented by: Olanzapine (Zyprexa -) 5 mg PO HS [facility] Last Admin: 05/10/20 21:42 Dose: 5 mg Documented by: Pantoprazole Sodium (Protonix Iv) 40 mg IVPUSH DAILY [facility] Last Admin: 05/11/20 09:51 Dose: 40 mg Documented by: Polyethylene Glycol (Miralax (For Daily Use) -) 17 gm PO BID PRN PRN Reason: CONSTIPATION - Objective Vital Signs: Vital Signs Temperature 97.8 F 05/11/20 08:36 Pulse Rate 67 05/11/20 08:36 Respiratory Rate 19 05/11/20 08:36 Blood Pressure 138/62 05/11/20 08:36 O2 Sat by Pulse Oximetry (%) 94 L 05/11/20 08:37 Constitutional: Yes: No Distress, Calm Cardiovascular: Yes: S1, S2 Respiratory: Yes: Regular, Poor Air Entry Gastrointestinal: Yes: Normal Bowel Sounds, Soft Musculoskeletal: Yes: WNL Extremities: Yes: WNL Neurological: Yes: Alert, Oriented Labs: CBC, BMP 05/09/20 05:55 05/09/20 05:55 INR, PTT INR 0.99 (0.83-1.09) 05/02/20 03:55 Assessment/Plan Problem List - Problems (1) UDAY (acute kidney injury) Code(s): N17.9 - ACUTE KIDNEY FAILURE, UNSPECIFIED (2) Aspiration pneumonia Code(s): J69.0 - PNEUMONITIS DUE TO INHALATION OF FOOD AND VOMIT Qualifiers: Aspiration pneumonia type: due to vomit Laterality: left Lung location: unspecified part of lung Qualified Code(s): J69.0 - Pneumonitis due to inhalation of food and vomit (3) Coronary artery disease Code(s): I25.10 - ATHSCL HEART DISEASE OF [place] CORONARY ARTERY W/O ANG PCTRS Qualifiers: Coronary Disease-Associated Artery/Lesion type: [place] artery [place] vs. transplanted heart: [place] heart Associated angina: without angina Qualified Code(s): I25.10 - Atherosclerotic heart disease of [place] coronary artery wi thout angina pectoris Impression 1. UDAY 2. resp failure requiring bipap 3. cad with hx of stents 4. elevated ldh 5. hx htn 6. vomiting 7. aspiration PNA 8. bph 9. hld plan resp support rest continue current mgmt
[2020-05-11 11:47] LABS: BASO % 0.9 % (0-2.0); EOS % 1.6 % (0-4.5); HEMATOCRIT 40.7 % (35.4-49); HEMOGLOBIN 13.5 GM/dL (11.7-16.9); LYMPH % 10.5 % (8-40); MCH 31.6 pg (25.7-33.7); MCHC 33.1 g/dl (32.0-35.9); MEAN CELL VOLUME 95.3 fl (80-96); MEAN PLT VOLUME 12.3 fl (7.5-11.1); MONO % 6.8 % (3.8-10.2); NEUT % 80.2 % (42.8-82.8); PLATELET COUNT 143 K/MM3 (134-434); RBC 4.27 M/mm3 (4.00-5.60); RDW 14.2 % (11.9-15.9); WHITE BLOOD COUNT 12.8 K/mm3 (4.0-10.0)
--- NOTE | 2020-05-11 12:03 | PN ---
Progress Note, Physician History of Present Illness: PULMONARY ALERT,COMFORTABLE,-SOB,ON NASAL CANNULA - Current Medication List Current Medications: Active Medications Acetaminophen (Tylenol -) 650 mg PO Q6H PRN PRN Reason: Fever Or Pain Aspirin (Asa -) 81 mg PO DAILY [facility] Last Admin: 05/11/20 09:50 Dose: 81 mg Documented by: Atorvastatin Calcium (Lipitor -) [address] [facility] Last Admin: 05/10/20 21:42 Dose: 80 mg Documented by: Lisinopril (Prinivil) 10 mg PO DAILY [facility] Last Admin: 05/11/20 09:51 Dose: 10 mg Documented by: Metoprolol Succinate (Toprol Xl -) 25 mg PO DAILY [facility] Last Admin: 05/11/20 09:50 Dose: 25 mg Documented by: Olanzapine (Zyprexa -) 5 mg PO HS [facility] Last Admin: 05/10/20 21:42 Dose: 5 mg Documented by: Pantoprazole Sodium (Protonix Iv) 40 mg IVPUSH DAILY [facility] Last Admin: 05/11/20 09:51 Dose: 40 mg Documented by: Polyethylene Glycol (Miralax (For Daily Use) -) 17 gm PO BID PRN PRN Reason: CONSTIPATION - Objective Vital Signs: Vital Signs Temperature 97.8 F 05/11/20 08:36 Pulse Rate 67 05/11/20 08:36 Respiratory Rate 19 05/11/20 08:36 Blood Pressure 138/62 05/11/20 08:36 O2 Sat by Pulse Oximetry (%) 94 L 05/11/20 08:37 Constitutional: Yes: Calm, Thin Eyes: Yes: WNL HENT: Yes: WNL Neck: Yes: WNL Cardiovascular: Yes: Regular Rate and Rhythm, S1, S2 Respiratory: Yes: Diminished Gastrointestinal: Yes: Normal Bowel Sounds, Soft Extremities: Yes: WNL Edema: No Labs: CBC, BMP 05/11/20 11:30 05/09/20 05:55 Problem List - Problems (1) Acute respiratory failure with hypoxia and hypercapnia Code(s): J96.01 - ACUTE RESPIRATORY FAILURE WITH HYPOXIA; J96.02 - ACUTE RESPIRATORY FAILURE WITH HYPERCAPNIA (2) UDAY (acute kidney injury) Code(s): N17.9 - ACUTE KIDNEY FAILURE, UNSPECIFIED (3) Aspiration pneumonia Code(s): J69.0 - PNEUMONITIS DUE TO INHALATION OF FOOD AND VOMIT Qualifiers: Aspiration pneumonia type: due to vomit Laterality: left Lung location: unspecified part of lung Qualified Code(s): J69.0 - Pneumonitis due to inhalation of food and vomit (4) Coronary artery disease Code(s): I25.10 - ATHSCL HEART DISEASE OF [place] CORONARY ARTERY W/O ANG PCTRS Qualifiers: Coronary Disease-Associated Artery/Lesion type: [place] artery [place] vs. transplanted heart: [place] heart Associated angina: without angina Qualified Code(s): I25.10 - Atherosclerotic heart disease of [place] coronary artery without angina pectoris (5) Demand ischemia Code(s): I24.8 - OTHER FORMS OF ACUTE ISCHEMIC HEART DISEASE (6) Elevated troponin I level Code(s): R79.89 - OTHER SPECIFIED ABNORMAL FINDINGS OF BLOOD CHEMISTRY (7) Hyperlipidemia Code(s): E78.5 - HYPERLIPIDEMIA, UNSPECIFIED Qualifiers: Hyperlipidemia type: pure hypercholesterolemia Qualified Code(s): E78.00 - Pure hypercholesterolemia, unspecified; E78.0 - Pure hypercholesterolemia (8) Hypertension Code(s): I10 - ESSENTIAL (PRIMARY) HYPERTENSION Qualifiers: Hypertension type: essential hypertension Qualified Code(s): I10 - Essential (primary) hypertension (9) PNA (pneumonia) Code(s): J18.9 - PNEUMONIA, UNSPECIFIED ORGANISM Qualifiers: Pneumonia type: due to unspecified organism Laterality: bilateral Lung location: unspecified part of lung Qualified Code(s): J18.9 - Pneumonia, unspecified organism (10) Cerebrovascular accident (CVA) Code(s): I63.9 - CEREBRAL INFARCTION, UNSPECIFIED Qualifiers: CVA mechanism: occlusion Precerebral and cerebral artery: carotid artery Laterality of affected vessel: left Qualified Code(s): I63.232 - Cerebral infarction due to unspecified occlusion or stenosis of left carotid arteries Assessment/Plan IMP ACUTE HYPOXEMIC/HYPERCAPNEIC RESPIRATORY FAILURE improving LIKELY ASPIRATION UDAY IMPROVING + TROPONIN LIKELY DEMAND ISCHEMIA HTN H/O CVA ASHD S/P PPM HLD S/P CAROTID STENTS LACTIC ACIDOSIS CORRECTED PLAN SUPPLEMENTAL O2 TO MAINTAIN O2 SAT 90% ABX completed INHALED BRONCHODILATORS ASPIRATION PRECAUTIONS DR FRASER Problem List - Problems (1) Acute respiratory failure with hypoxia and hypercapnia Code(s): J96.01 - ACUTE RESPIRATORY FAILURE WITH HYPOXIA; J96.02 - ACUTE RESPIRATORY FAILURE WITH HYPERCAPNIA (2) UDAY (acute kidney injury) Code(s): N17.9 - ACUTE KIDNEY FAILURE, UNSPECIFIED (3) Aspiration pneumonia Code(s): J69.0 - PNEUMONITIS DUE TO INHALATION OF FOOD AND VOMIT Qualifiers: Aspiration pneumonia type: due to vomit Laterality: left Lung location: unspecified part of lung Qualified Code(s): J69.0 - Pneumonitis due to inhalation of food and vomit (4) Coronary artery disease Code(s): I25.10 - ATHSCL HEART DISEASE OF [place] CORONARY ARTERY W/O ANG PCTRS Qualifiers: Coronary Disease-Associated Artery/Lesion type: [place] artery [place] vs. transplanted heart: [place] heart Associated angina: without angina Qualified Code(s): I25.10 - Atherosclerotic heart disease of [place] coronary artery without angina pectoris (5) [place]and ischemia Code(s): I24.8 - OTHER FORMS OF ACUTE ISCHEMIC HEART DISEASE (6) Elevated troponin I level Code(s): R79.89 - OTHER SPECIFIED ABNORMAL FINDINGS OF BLOOD CHEMISTRY (7) Hyperlipidemia Code(s): E78.5 - HYPERLIPIDEMIA, UNSPECIFIED Qualifiers: Hyperlipidemia type: pure hypercholesterolemia Qualified Code(s): E78.00 - Pure hypercholesterolemia, unspecified; E78.0 - Pure hypercholesterolemia (8) Hypertension Code(s): I10 - ESSENTIAL (PRIMARY) HYPERTENSION Qualifiers: Hypertension type: essential hypertension Qualified Code(s): I10 - Essential (primary) hypertension (9) PNA (pneumonia) Code(s): J18.9 - PNEUMONIA, UNSPECIFIED ORGANISM Qualifiers: Pneumonia type: due to unspecified organism Laterality: bilateral Lung location: unspecified part of lung Qualified Code(s): J18.9 - Pneumonia, unspecified organism (10) Cerebrovascular accident (CVA) Code(s): I63.9 - CEREBRAL INFARCTION, UNSPECIFIED Qualifiers: CVA mechanism: occlusion Precerebral and cerebral artery: carotid artery Laterality of affected vessel: left Qualified Code(s): I63.232 - Cerebral infarction due to unspecified occlusion or stenosis of left carotid arteries
--- NOTE | 2020-05-11 13:44 | PN ---
Teaching Attending Note Name of Resident: Melissa Henao ATTENDING PHYSICIAN STATEMENT I saw and evaluated the patient. I reviewed the resident's note and discussed the case with the resident. I agree with the resident's findings and plan as documented. SUBJECTIVE: Unable to participate fully in medical interview. Denies any medical complaints. OBJECTIVE: Afebrile, Hemodynamically stable. AAO x 1-2. Follows instructions/directions. Last Vital Signs Temp Pulse Resp BP Pulse Ox 97.8 F 67 19 138/62 94 L 05/11/20 08:36 05/11/20 08:36 05/11/20 08:36 05/11/20 08:36 05/11/20 08:37 Heart - S1, S2, RRR Lungs - decreased air entry at bases. Abdomen - Soft, non-tender. Bowel Sounds normal. Extremities - no edema, no calf tenderness Neuro - AAO x 1-2. Tone/Power normal all extremities Laboratory Results - last 24 hr 05/11/20 11:30 WBC 12.8 H RBC 4.27 Hgb 13.5 Hct 40.7 D MCV 95.3 MCH 31.6 MCHC 33.1 RDW 14.2 Plt Count 143 MPV 12.3 H Absolute Neuts (auto) 10.3 H Neutrophils % 80.2 Lymphocytes % 10.5 D Monocytes % 6.8 Eosinophils % 1.6 Basophils % 0.9 Nucleated RBC % 0 Current Medications Generic Name Dose Route Start Last Admin Trade Name Freq PRN Reason Stop Dose Admin Acetaminophen 650 mg 05/05/20 16:13 Tylenol - PO Q6H PRN Fever Or Pain Aspirin 81 mg 05/03/20 10:00 05/11/20 09:50 Asa - PO 81 mg DAILY [facility] Administration Atorvastatin Calcium 80 mg 05/02/20 22:00 05/10/20 21:42 Lipitor - PO 80 mg HS [facility] Administration Lisinopril 10 mg 05/07/20 10:00 05/11/20 09:51 Prinivil PO 10 mg DAILY [facility] Administration Metoprolol Succinate 25 mg 05/03/20 10:00 05/11/20 09:50 Toprol Xl - PO 25 mg DAILY [facility] Administration Olanzapine 5 mg 05/05/20 22:00 05/10/20 21:42 Zyprexa - PO 5 mg HS [facility] Administration Pantoprazole Sodium 40 mg 05/02/20 14:15 05/11/20 09:51 Protonix Iv IVPUSH 40 mg DAILY [facility] Administration Polyethylene Glycol 17 gm 05/08/20 08:59 Miralax (For Daily Use) - PO BID PRN CONSTIPATION Home Medications Medication Instructions Recorded Metoprolol Succinate 25 mg PO DAILY 08/07/18 Olanzapine 5 mg PO HS 08/07/18 Aspirin [ASA -] 81 mg PO DAILY 05/02/20 Atorvastatin Ca [Lipitor] 80 mg PO HS 05/02/20 Tamsulosin HCl 0.4 mg PO HS 05/02/20 Lisinopril [Prinivil] 10 mg PO DAILY #30 tablet 05/10/20 ASSESSMENT AND PLAN: 74 year old male with history of Dementia, HTN, HLD, Carotid Stents, s/p pacemaker placement, 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 1. Acute Hypoxic/Hypercapneic Respiratory Failure secondary to Aspiration Pneumonia CT Chest - bilateral lower lobe consolidation R>L, developing JENN Pneumonia Stable on supplemental O2 via NC, off BiPAP Completed course of Meropenem - afebrile, hemodynamically stable. Pureed diet with nectar thick liquids recommended by Speech therapy. Pulmonary out-patient follow up. 2. ACS, TnI max > 4, secondary to demand ischemia as per Cardio Likely underlying CAD Evaluated by Cardio - no in-patient work-up recommended at this time. Echo - LVH, EF 60-65%, Mod MR, Mild . Continue ASA/BB/PAOLA-I/Statin Out-patient Cardiology follow up. 3. UDAY - resolved. Renal US - R Renal Cyst - for out-patient Urology follow up. 4. HTN - continue Metoprolol, Lisinopril 5. HLD - Continue Statin. 6. CVA with residual R sided weakness and Aphasia - stable. 7. Dementia with Psychiatric Disturbance - continue Olanzapine 8. BPH - Continue Tamsulosin. DVT Px - Heparin SQ Dispo - medically stable for discharge to SNF.
[2020-05-11 14:39] LABS: HEMATOCRIT 39.6 % (35.4-49); HEMOGLOBIN 13.3 GM/dL (11.7-16.9); MCH 31.3 pg (25.7-33.7); MCHC 33.5 g/dl (32.0-35.9); MEAN CELL VOLUME 93.5 fl (80-96); PLATELET COUNT 180 K/MM3 (134-434); RBC 4.24 M/mm3 (4.00-5.60); RDW 13.9 % (11.9-15.9); WHITE BLOOD COUNT 11.1 K/mm3 (4.0-10.0)
[2020-05-11 15:02] VITALS: BP 119/68; PULSE 70; TEMP 97.5
== END 2020-05-11 19:34 | DRG 177 ==
LOC: JER 03:46 → JERBED 05:47 → J4S 22:32
PROC: 5A09557 Assistance with Respiratory Ventilation, Greater than 96 Consecutive Hours, Continuous Positive Airway Pressure (ICD-10-PCS; principal; 2020-05-02)
DX: J69.0 Pneumonitis due to inhalation of food and vomit (principal); J96.21 Acute and chronic respiratory failure with hypoxia; J96.22 Acute and chronic respiratory failure with hypercapnia; I69.351 Hemiplegia and hemiparesis following cerebral infarction affecting right dominant side; E87.2 Acidosis; F03.91 Unspecified dementia, unspecified severity, with behavioral disturbance; I24.8 Other forms of acute ischemic heart disease; N17.9 Acute kidney failure, unspecified; K56.690 Other partial intestinal obstruction; I10 Essential (primary) hypertension; J45.909 Unspecified asthma, uncomplicated; I69.320 Aphasia following cerebral infarction; N40.0 Benign prostatic hyperplasia without lower urinary tract symptoms; E78.5 Hyperlipidemia, unspecified; H91.92 Unspecified hearing loss, left ear; I44.7 Left bundle-branch block, unspecified; J44.9 Chronic obstructive pulmonary disease, unspecified; D64.9 Anemia, unspecified; I25.10 Atherosclerotic heart disease of native coronary artery without angina pectoris; N28.1 Cyst of kidney, acquired; D69.6 Thrombocytopenia, unspecified; I34.0 Nonrheumatic mitral (valve) insufficiency; R93.5 Abnormal findings on diagnostic imaging of other abdominal regions, including retroperitoneum; E66.9 Obesity, unspecified; Z68.32 Body mass index [BMI] 32.0-32.9, adult; R79.89 Other specified abnormal findings of blood chemistry; I65.29 Occlusion and stenosis of unspecified carotid artery; R31.9 Hematuria, unspecified; Z95.5 Presence of coronary angioplasty implant and graft; Z95.0 Presence of cardiac pacemaker
CPT/HCPCS: 36415; 36600; 71045-TC-FY; 71250-TC; 74018-TC-FY; 74019-TC-FY; 74230-TC-FY; 76775-TC; 76856-TC; 80048; 80053; 81003; 82436; 82550; 82553; 82565; 82803; 83605; 83615; 83735; 83880; 84100; 84133; 84300; 84484; 85025; 85027; 85379; 85610; 85651; 85730; 86140; 86850; 86900; 86901; 87040; 87086; 92611-GN; 93005; 93010; 93306-TC; 93970-TC; 94640; 94660; 94761; 97116-GP; 97161-GP; 99285-25; J0131; J1644; U0003